=== PATIENT | female | born 1955 | race Caucasian/White ===

== ENCOUNTER 2016-04-16 08:46 | Day surgery (SDC) | payer OTHER, BC ==
[2016-04-16] MEDS ORDERED: IRON SUCROSE INJECTION 200 MG in SODIUM CHLORIDE 100 ML IVPB ONE (09:15)
[2016-04-16 09:22] VITALS: BMI 35.7
== END 2016-04-16 12:12 | disposition home or self-care (01) ==
LOC: FINFUSION 08:46 → FM/S 08:47 → FINFUSION 12:12
PROVIDERS: ATTEND Internal Medicine Hematology & Oncology
PROC: 3E033GC Introduction of Other Therapeutic Substance into Peripheral Vein, Percutaneous Approach (ICD-10-PCS; principal; 2016-04-16)
DX: D50.9 Iron deficiency anemia, unspecified (principal)
CPT/HCPCS: 96365; J1756

== ENCOUNTER 2016-04-23 08:44 | Day surgery (SDC) | payer OTHER, BC ==
[2016-04-23 09:24] VITALS: BP 151/60; PULSE 66; TEMP 98.8; BMI 34.2
[2016-04-23] MEDS ORDERED: IRON SUCROSE INJECTION 200 MG in SODIUM CHLORIDE 100 ML IVPB ONE (09:30)
== END 2016-04-23 10:40 | disposition home or self-care (01) ==
LOC: FINFUSION 08:44 → FM/S 08:45 → FINFUSION 10:40
PROVIDERS: ATTEND Internal Medicine Hematology & Oncology
PROC: 3E033GC Introduction of Other Therapeutic Substance into Peripheral Vein, Percutaneous Approach (ICD-10-PCS; principal; 2016-04-23)
DX: D50.9 Iron deficiency anemia, unspecified (principal)
CPT/HCPCS: 96365; J1756

== ENCOUNTER 2016-06-11 08:41 | Day surgery (SDC) | payer OTHER, BC ==
[2016-06-11] MEDS ORDERED: IRON SUCROSE INJECTION 200 MG in SODIUM CHLORIDE 100 ML IVPB ONE (09:30)
[2016-06-11 11:59] VITALS: BP 132/78; PULSE 78; TEMP 98.6; BMI 38.2
== END 2016-06-11 11:30 | disposition home or self-care (01) ==
LOC: FINFUSION 08:41 → FM/S 08:42 → FINFUSION 11:30
PROVIDERS: ATTEND Internal Medicine Hematology & Oncology
PROC: 3E033GC Introduction of Other Therapeutic Substance into Peripheral Vein, Percutaneous Approach (ICD-10-PCS; principal; 2016-06-11)
DX: D50.9 Iron deficiency anemia, unspecified (principal)
CPT/HCPCS: 96365; J1756

== ENCOUNTER 2016-06-18 08:57 | Day surgery (SDC) | payer OTHER, BC ==
[2016-06-18] MEDS ORDERED: IRON SUCROSE INJECTION 200 MG in SODIUM CHLORIDE 100 ML IVPB ONE (09:45)
[2016-06-18 11:18] VITALS: BP 120/72; PULSE 62; TEMP 98.5
== END 2016-06-18 11:18 | disposition home or self-care (01) ==
LOC: FINFUSION 08:57 → FM/S 08:59 → FINFUSION 11:18
PROVIDERS: ATTEND Internal Medicine Hematology & Oncology
PROC: 3E033GC Introduction of Other Therapeutic Substance into Peripheral Vein, Percutaneous Approach (ICD-10-PCS; principal; 2016-06-18)
DX: D50.9 Iron deficiency anemia, unspecified (principal)
CPT/HCPCS: 96365; J1756

== ENCOUNTER 2016-07-02 09:17 | Day surgery (SDC) | payer OTHER, BC ==
[2016-07-02 10:11] VITALS: BP 150/80; PULSE 70; TEMP 98.7; BMI 35.7
[2016-07-02] MEDS ORDERED: IRON SUCROSE INJECTION 200 MG in SODIUM CHLORIDE 100 ML IVPB ONE (10:30)
== END 2016-07-02 11:30 | disposition home or self-care (01) ==
LOC: FINFUSION 09:17 → FM/S 09:29 → FINFUSION 11:30
PROVIDERS: ATTEND Internal Medicine Hematology & Oncology
PROC: 3E033GC Introduction of Other Therapeutic Substance into Peripheral Vein, Percutaneous Approach (ICD-10-PCS; principal; 2016-07-02)
DX: D50.9 Iron deficiency anemia, unspecified (principal)
CPT/HCPCS: 96365; J1756

== ENCOUNTER 2016-10-09 09:37 | Day surgery (SDC) | payer OTHER, BC ==
[2016-10-09 10:06] VITALS: BP 140/56; PULSE 71; TEMP 98.2; BMI 35.9
[2016-10-09] MEDS ORDERED: IRON SUCROSE INJECTION 200 MG in SODIUM CHLORIDE 100 ML IVPB ONE (10:30)
== END 2016-10-09 11:00 | disposition home or self-care (01) ==
LOC: FINFUSION 09:37 → FM/S 09:39 → FINFUSION 11:00
PROVIDERS: ATTEND Internal Medicine Hematology & Oncology
PROC: 3E033GC Introduction of Other Therapeutic Substance into Peripheral Vein, Percutaneous Approach (ICD-10-PCS; principal; 2016-10-09)
DX: D50.9 Iron deficiency anemia, unspecified (principal)
CPT/HCPCS: 96365; J1756

== ENCOUNTER 2016-10-22 09:04 | Day surgery (SDC) | payer OTHER, BC ==
[2016-10-22 09:51] VITALS: BP 125/52; PULSE 61; TEMP 97.5; BMI 35.7
[2016-10-22] MEDS ORDERED: IRON SUCROSE INJECTION 200 MG in SODIUM CHLORIDE 100 ML IVPB ONE (10:00)
== END 2016-10-22 11:20 | disposition home or self-care (01) ==
LOC: FINFUSION 09:04 → FM/S 09:05 → FINFUSION 11:20
PROVIDERS: ATTEND Internal Medicine Hematology & Oncology
PROC: 3E033GC Introduction of Other Therapeutic Substance into Peripheral Vein, Percutaneous Approach (ICD-10-PCS; principal; 2016-10-22)
DX: D50.9 Iron deficiency anemia, unspecified (principal)
CPT/HCPCS: 96365; J1756

== ENCOUNTER 2016-10-29 09:33 | Day surgery (SDC) | payer OTHER, BC ==
[2016-10-29] MEDS ORDERED: IRON SUCROSE INJECTION 200 MG in SODIUM CHLORIDE 100 ML IVPB ONE (10:30)
[2016-10-29 10:42] VITALS: TEMP 98.4
[2016-10-29 11:35] VITALS: BP 130/80; PULSE 78
[2016-10-29 16:14] LABS: MCH 29.3 pg (25.7-33.7); MCHC 33.2 g/dl (32.0-36.0); MEAN CELL VOLUME 88.3 fl (80-96); MEAN PLT VOLUME 10.3 fl (7.5-11.1); PLATELET COUNT 129 K/MM3 (134-434); RDW 13.9 % (11.6-15.6); WHITE BLOOD COUNT 7.8 K/mm3 (4.0-10.8)
[2016-10-30 08:07] LABS: SERUM IRON 53 ug/dL (27-139); TOTAL IRON BINDING CAPACITY 271 ug/dL (250-450); UIBC 218 ug/dL (118-369)
== END 2016-10-29 11:19 | disposition home or self-care (01) ==
LOC: FINFUSION 09:33 → FM/S 09:44 → FINFUSION 11:19
PROVIDERS: ATTEND Internal Medicine Hematology & Oncology
PROC: 3E033GC Introduction of Other Therapeutic Substance into Peripheral Vein, Percutaneous Approach (ICD-10-PCS; principal; 2016-10-29)
DX: D50.9 Iron deficiency anemia, unspecified (principal)
CPT/HCPCS: 36415; 83540; 83550; 85027; 96365; J1756

== ENCOUNTER 2016-11-03 09:40 | Emergency (ER) | payer OTHER, BC ==
[2016-11-03 09:53] VITALS: PULSE 89; BMI 35.0
[2016-11-03 10:18] VITALS: BP 127/80
[2016-11-03] MEDS ORDERED: ACETAMINOPHEN 325 MG TABLET (FP) PO ONE (10:23)
[2016-11-03] MEDS ORDERED: ACETAMINOPHEN 325 MG TABLET (FP) ONE (10:25)
--- NOTE | 2016-11-03 10:39 | PDOC ---
History of Present Illness <Syeda Abernathy - Last Filed: 11/03/16 14:32> - History of Present Illness Initial Comments: 11/03/16 10:33 Patient is a 61 year old female with a history of HTN, DM, CAD s/p stenting, chronic anemia, who presents with complaints of left foot redness, swelling, and pain. The patient reports gradual onset of swelling and pain beginning over the last week in the left foot. She states over the past 24 hours, she has been experiencing worsening severe pain that she describes as throbbing in nature prompting her visit to the ED today. She also reports onset of chills over the past 24 hours. She denies any recent travel, chest pain, SOB, cough, abdominal pain, or changes with bowel movements or urination. <Damon Vargas - Last Filed: 11/03/16 15:25> - General Chief Complaint: Redness To Affected Area Stated Complaint: LEFT FOOT PAIN, REDNESS Time Seen by Provider: 11/03/16 09:49 Past History <Syeda Abernathy - Last Filed: 11/03/16 14:32> - Past Medical History Anemia: Yes Asthma: No Cancer: Yes (bladder ca) Cardiac Disorders: Yes (STENTS 2000) CVA: No COPD: No CHF: No Dementia: No Diabetes: Yes (improved with sx) GI Disorders: No Disorders: No HTN: Yes Hypercholesterolemia: Yes Liver Disease: No Seizures: No Thyroid Disease: No - Surgical History Abdominal Surgery: Yes (gastric bypass) Appendectomy: No Cardiac Surgery: Yes (stents) Cholecystectomy: No Lung Surgery: No Neurologic Surgery: No Orthopedic Surgery: Yes (RTKR 2010, L leg ORIF) - Psycho/Social/Smoking Cessation Hx Anxiety: No Suicidal Ideation: No Smoking Status: Yes Smoking History: Former smoker Have you smoked in the past 12 months: No Number of Cigarettes Smoked Daily: 30 If you are a former smoker, when did you quit?: 2007 Information on smoking cessation initiated: No Hx Alcohol Use: (occasional) Drug/Substance Use Hx: No Substance Use Type: Alcohol Hx Substance Use Treatment: No <Damon Vargas - Last Filed: 11/03/16 15:25> - Past Medical History Allergies/Adverse Reactions: Allergies Allergy/AdvReac Type Severity Reaction Status Date / Time Sulfa (Sulfonamide Allergy Verified 11/03/16 09:46 Antibiotics) Home Medications: Ambulatory Orders Hydrochlorothiazide 12.5 mg PO AM tablet 01/17/16 Olmesartan Medoxomil [Benicar] 20 mg PO AM tablet 01/17/16 Aspirin [ASA -] 81 mg PO DAILY 02/13/16 Cholecalciferol (Vitamin D3) [D3-2000] 2,000 unit PO DAILY 03/26/16 Clindamycin [Cleocin -] 300 mg PO TID #21 capsule 11/03/16 Ibuprofen [Motrin -] 600 mg PO TID #21 tablet 11/03/16 Review of Systems - Review of Systems Constitutional: Yes: Chills, Fever. No: Night Sweats Respiratory: No: Cough, Shortness of Breath, Hemoptysis Cardiac (ROS): No: Chest Pain, Palpitations, Chest Tightness ABD/GI: No: Constipated, Diarrhea, Nausea, Vomiting, Abdominal cramping : No: Burning, Dysuria Musculoskeletal: Yes: Joint Swelling Integumentary: Yes: Erythema. No: Rash Neurological: No: Headache, Numbness, Tingling, Weakness <Damon Vargas - Last Filed: 11/03/16 15:25> *Physical Exam - Vital Signs Last Vital Signs Temp Pulse Resp BP Pulse Ox 98.1 F 89 18 127/80 99 11/03/16 13:07 11/03/16 09:40 11/03/16 09:40 11/03/16 10:17 11/03/16 09:40 <Syeda Abernathy - Last Filed: 11/03/16 14:32> - Vital Signs Last Vital Signs Temp Pulse Resp BP Pulse Ox 99.8 F H 89 18 127/80 99 11/03/16 09:40 11/03/16 09:40 11/03/16 09:40 11/03/16 10:17 11/03/16 09:40 - Physical Exam Comments: 11/03/16 10:43 General Appearance: Nourished. No Apparent Distress HEENT: No Pharyngeal Erythema, Tonsillar Exudate, Tonsillar Erythema Respiratory/Chest: Lungs Clear, Normal Breath Sounds. No Crackles, Rales, Rhonchi, Wheezing Cardiovascular: Regular Rhythm, Regular Rate. No Murmur, Gallop/S3, Gallop/S4 Gastrointestinal/Abdominal: Normal Bowel Sounds, Soft. No Guarding, Rebound, Tenderness Extremity: Lower extremity foot swelling L>R with erythema and warmth tender to palpation worse over the left foot. Neurologic: Fully Oriented, Alert, Normal Mood/Affect, Normal Response <Damon Vargas - Last Filed: 11/03/16 15:25> ED Treatment Course - LABORATORY CBC & Chemistry Diagram: 11/03/16 10:30 11/03/16 10:35 - ADDITIONAL ORDERS Additional order review: Laboratory Results 11/03/16 10:35 Sodium 137 Potassium 4.6 Chloride 105 Carbon Dioxide 24 Anion Gap 8 BUN 27 H D Creatinine 1.2 Creat Clearance w eGFR 45.37 Random Glucose 98 Uric Acid 7.1 Calcium 8.8 Total Bilirubin 0.3 AST 22 ALT 12 D Alkaline Phosphatase 114 H Total Protein 6.5 Albumin 3.8 11/03/16 10:30 RBC 3.75 MCV 88.8 MCHC 32.6 RDW 13.9 MPV 8.4 D Neutrophils % 39.7 L D Lymphocytes % 51.3 H Monocytes % 5.6 Eosinophils % 1.3 Basophils % 2.1 H D - RADIOLOGY Radiology Studies Ordered: Category Date Time Status DUPLEX VASCUL US-1 LEG [US] Stat Ultrasound 11/03/16 10:21 Completed - Medications Given in the ED: ED Medications Discontinued Medications Generic Name Dose Route Start Last Admin Trade Name Demetria PRN Reason Stop Dose Admin Acetaminophen 650 mg 11/03/16 10:23 11/03/16 10:27 Tylenol - PO 11/03/16 10:24 650 mg ONCE ONE Administration Ibuprofen 600 mg 11/03/16 12:55 11/03/16 13:00 Motrin - PO 11/03/16 12:56 600 mg ONCE ONE Administration <Syeda Abernathy - Last Filed: 11/03/16 14:32> - LABORATORY CBC & Chemistry Diagram: 11/03/16 10:30 11/03/16 10:35 <Damon Vargas - Last Filed: 11/03/16 15:25> Medical Decision Making - Medical Decision Making 11/03/16 10:45 Patient is a 61 year female who presents with left foot and calf swelling, redness, and pain. Differential includes but is not limited to: DVT, cellulitis , gout, fracture. Given the patient's physical exam and history it is reasonable to evaluate for dvt and infection. Currently given swelling and pain worse around the first metatarsal, gout is higher on the differential. The patient does report a family history of gout. However we will obtain a cbc, cmp to evaluate for infection as well as a US and plain film to evaluate for DVT or fracture. 11/03/16 12:41 Labs are unremarkable and plain film shows no acute fracture read by our radiologist. US is negative for proximal DVT. 11/03/16 14:57 We discussed the results with the patient and attempted to contact her PCP Dr. Harvey. We are currently waiting for a call back from Dr. Harvey. We believe that her symptoms are due to either a gout attack vs. cellulites. It is difficult to discern between the two at this time due to that fact that this would be her first gout attack. We will send the patient home with a course of clindamycin to treat for cellulitis and advised the patient to take motrin for pain if this is a gout flare. We discussed with the patient the importance of follow up with Dr. Harvey and the patient agreed to call to schedule follow up with his clinic. <Damon Vargas - Last Filed: 11/03/16 15:25> *DC/Admit/Observation/Transfer - Discharge Dispostion Admit: No <Syeda Abernathy - Last Filed: 11/03/16 14:32> - Attestations Physician Attestion: 11/03/16 15:23 I, Dr. Damon Vargas, attest that this document has been prepared under my direction and personally reviewed by me in its entirety. I further attest, that it accurately reflects all work, treatment, procedures and medical decision -making performed by me. <Damon Vargas - Last Filed: 11/03/16 15:25> Diagnosis at time of Disposition: Cellulitis Qualifiers: Site of cellulitis: extremity Site of cellulitis of extremity: lower extremity Laterality: left Qualified Code(s): L03.116 - Cellulitis of left lower limb Gout attack Qualifiers: Gout site: foot Gout etiology: unspecified cause Laterality: left Qualified Code(s): M10.9 - Gout, unspecified - Discharge Dispostion Disposition: HOME Condition at time of disposition: Stable - Prescriptions Prescriptions: Clindamycin [Cleocin -] 300 mg PO TID #21 capsule Ibuprofen [Motrin -] 600 mg PO TID #21 tablet - Referrals Referrals: Aravind Harvey MD [Primary Care Provider] - - Patient Instructions Printed Discharge Instructions: Cellulitis, Gout Additional Instructions: take clindamycin 300 mg three times daily x one week. follow up with DR Brooks. call to schedule. you can take ibuprofen 600 mg every 8 hours as needed for pain. return for any problems or concerns.
[2016-11-03 10:45] LABS: BASOPHIL 2.1 % (0-2.0); EOSINOPHIL 1.3 % (0-4.5); MCHC 32.6 g/dl (32.0-36.0); MEAN CELL VOLUME 88.8 fl (80-96); MEAN PLT VOLUME 8.4 fl (7.5-11.1); NEUTROPHILS 39.7 % (42.8-82.8); PLATELET COUNT 135 K/MM3 (134-434); RDW 13.9 % (11.6-15.6); WHITE BLOOD COUNT 8.8 K/mm3 (4.0-10.8)
[2016-11-03 11:24] LABS: ALBUMIN 3.8 g/dl (3.5-5.0); ALK PHOS 114 U/L (32-92); ANION GAP 8 (8-16); BILIRUBIN,TOTAL 0.3 mg/dl (0.2-1.0); CALCIUM 8.8 mg/dl (8.4-10.2); CO2 24 mmol/L (22-28); CREATININE 1.2 mg/dl (0.6-1.3); GLUCOSE,RANDOM 98 mg/dl (74-106); SGOT/AST 22 U/L (10-42); SGPT/ALT 12 U/L (10-40); TOT PROT 6.5 g/dl (6.4-8.3); URIC ACID 7.1 mg/dl (2.6-7.2)
[2016-11-03] MEDS ORDERED: IBUPROFEN 600 MG TABLET (FP) PO ONE ×2 (12:55→12:57)
[2016-11-03 13:07] VITALS: TEMP 98.1
[2016-11-03 14:52] LABS: ERYTHROCYTE SEDIMENTATION RATE 60 mm/hr (0-30)
== END 2016-11-03 14:45 | disposition home or self-care (01) ==
LOC: FER 09:40
DX: L03.116 Cellulitis of left lower limb (principal); I10 Essential (primary) hypertension; E11.9 Type 2 diabetes mellitus without complications; I25.10 Atherosclerotic heart disease of native coronary artery without angina pectoris; Z95.5 Presence of coronary angioplasty implant and graft; D64.9 Anemia, unspecified; Z85.51 Personal history of malignant neoplasm of bladder; Z98.84 Bariatric surgery status; E78.00 Pure hypercholesterolemia, unspecified
CPT/HCPCS: 36415; 73610-TC-LT; 73630-TC-LT; 80053; 84550; 85025; 85651; 93971-TC; 99283-25

== ENCOUNTER 2016-11-10 01:27 | Inpatient (IN) | payer OTHER, BC ==
--- NOTE | 2016-11-10 01:39 | PDOC ---
History of Present Illness - General Chief Complaint: Pain, Acute Stated Complaint: I HAVE MRSA IN MY LEFT FOOT Time Seen by Provider: 11/10/16 01:38 - History of Present Illness Initial Comments: 11/10/16 01:47 This 61-year-old woman with a history of hypertension, CAD (S/P stent placement) , DM( reported remission after bariatric surgery) iron deficiency anemia presents with worsening erythema/edema/pain in the left foot and wound culture positive for MRSA and enterococcus faecalis Patient was seen in the ER here on 11/03 with painful, red, swollen left foot. Differential diagnosis was cellulitis versus acute gout. The patient had no or skin breakage Full workup including left lower extremity Doppler duplex ultrasound/plain film of the foot revealed no clear etiology of inflammation . She was discharged on course of clindamycin for empirical treatment of cellulitis. pain/swelling/redness continued as well as fevers (100 degree range ) She was seen by her PMD, Dr. Harvey on Wednesday, November 06. At that time, blister on the medial aspect of the first MTP joint was lanced, small foreign body( splinter) removed and drainage sent for culture and sensitivity. Meanwhile, clindamycin was stopped and amoxicillin 875 milligrams 3 times a day was begun. The patient went away for the weekend and noted increasing pain/swelling/ redness in foot.patient reports fever to 101 with chills this afternoon. Tonight, patient was called by Dr. Harvey when microbiology results were positive for MRSA. Wound culture shows MRSA and enterococcus faecalis. ALLERGIES sulfa( fever) Medications as noted below Past History - Past Medical History Allergies/Adverse Reactions: Allergies Allergy/AdvReac Type Severity Reaction Status Date / Time Sulfa (Sulfonamide Allergy Verified 11/10/16 01:29 Antibiotics) Home Medications: Ambulatory Orders Hydrochlorothiazide 12.5 mg PO AM tablet 01/17/16 Olmesartan Medoxomil [Benicar] 20 mg PO AM tablet 01/17/16 Aspirin [ASA -] 81 mg PO DAILY 02/13/16 Cholecalciferol (Vitamin D3) [D3-2000] 2,000 unit PO DAILY 03/26/16 Ibuprofen [Motrin -] 600 mg PO TID #21 tablet 11/03/16 Amoxicillin - [Amoxicillin 875mg Tablet -] 875 mg PO BID 11/10/16 Anemia: Yes Asthma: No Cancer: Yes (bladder ca) Cardiac Disorders: Yes (STENTS 1999) CVA: No COPD: No CHF: No Dementia: No Diabetes: Yes (improved with sx) GI Disorders: No Disorders: No HTN: Yes Hypercholesterolemia: Yes Liver Disease: No Seizures: No Thyroid Disease: No - Surgical History Abdominal Surgery: Yes (gastric bypass) Appendectomy: No Cardiac Surgery: Yes (stents) Cholecystectomy: No Lung Surgery: No Neurologic Surgery: No Orthopedic Surgery: Yes (RTKR 2010, L leg ORIF) - Psycho/Social/Smoking Cessation Hx Anxiety: No Suicidal Ideation: No Smoking Status: Yes Smoking History: Former smoker Have you smoked in the past 12 months: No Number of Cigarettes Smoked Daily: 30 If you are a former smoker, when did you quit?: 2007 Hx Alcohol Use: (occasional) Drug/Substance Use Hx: No Substance Use Type: Alcohol Hx Substance Use Treatment: No Review of Systems - Review of Systems Able to Perform ROS?: Yes Comments:: 12 point review of systems is negative except for what is noted in the history of present illness *Physical Exam - Physical Exam Comments: GENERAL:adult female,alert and oriented 3 in no acute distress HEAD: Normal with no signs of trauma. EYES: PERRLA, EOMI, sclera anicteric, conjunctiva clear. ENT: Ears normal, nares patent, oropharynx clear without exudates. Dry mucous membranes. NECK: Normal range of motion, supple without lymphadenopathy, JVD, or masses. LUNGS: Breath sounds equal, clear to auscultation bilaterally. No wheezes, and no crackles. HEART:Regular rate and rhythm, normal S1 and S2 ,3/6 systolic murmur at right and left second ICS ABDOMEN:.normal bowel sounds No guarding,tenderness or rebound.No masses No distention. EXTREMITIES: left lower extremitymarked edema, erythema and tenderness of the dorsal and plantar aspects of the forefoot 2cm X 3cm fluctuant, vesiculated, tender area 1st and 2nd interspace , dorsal aspect 1cm X 2cm closed, non draining vesicle medial aspect 1st MTP joint faint erythema/ mild edema extends proximally to mid lower leg Remainder of extremity exam normal NEUROLOGICAL: Cranial nerves II through XII grossly intact. Normal speech. No focal neurological deficits MUSCULOSKELETAL: Back non-tender to palpation, no CVA tenderness ED Treatment Course - LABORATORY CBC & Chemistry Diagram: 11/10/16 02:05 11/10/16 02:05 Medical Decision Making - Medical Decision Making 11/10/16 03:26 Laboratory evaluation notable for white blood cell count 11,300 Creatinine clearance is also significantly diminished as compared to results of last week (28 tonight vs. 45 last week) Random glucose is 195 Lactic acid is normal at 0.9 CRP significantly elevated at 16.9 Portable chest x-ray reveals no evidence of infiltrate/effusion/CHF Left foot x-ray shows no clear sign of acute osteomyelitis or gas in tissues ( unchanged from right foot x-ray performed 11/03/16) 12-lead electrocardiogram is performed and interpreted by me: Normal sinus rhythm at 74 beats per minute; axis, wave forms and intervals are all normal. No evidence of acute ST or T-wave abnormalities Vancomycin 1 g IV administered. case discussed with Dr. Soto. [facility]. ESR added to laboratory evaluation Zosyn 2.2 g IV ordered. *DC/Admit/Observation/Transfer Diagnosis at time of Disposition: Cellulitis of left foot - Discharge Dispostion Condition at time of disposition: Guarded Admit: Yes - Referrals Referrals: Aravind Harvey MD [Primary Care Provider] -
[2016-11-10] MEDS ORDERED: VANCOMYCIN 1,000 MG in DEXTROSE 5%-WATER - 250 ML IVPB ONE (02:01)
[2016-11-10] MEDS ORDERED: VANCOMYCIN 1,000 MG VIAL (RESTRICTED TO ID ONLY) ONE (02:03)
[2016-11-10 02:35] LABS: BASOPHIL 0.8 % (0-2.0); MCH 28.8 pg (25.7-33.7); MCHC 32.3 g/dl (32.0-36.0); MEAN CELL VOLUME 89.3 fl (80-96); MEAN PLT VOLUME 9.2 fl (7.5-11.1); NEUTROPHILS 45.9 % (42.8-82.8); PLATELET COUNT 146 K/MM3 (134-434); RDW 14.7 % (11.6-15.6); WHITE BLOOD COUNT 11.3 K/mm3 (4.0-10.0)
[2016-11-10 02:38] LABS: URINE APPEARANCE SLCLOUDY; URINE BILIRUBIN NEGATIVE (NEGATIVE); URINE BLOOD 1+ (NEGATIVE); URINE COLOR YELLOW; URINE GLUCOSE (UA) NEGATIVE (NEGATIVE); URINE KETONE NEGATIVE (NEGATIVE); URINE LEUK ESTERASE TRACE (NEGATIVE); URINE NITRITE NEGATIVE (NEGATIVE); URINE UROBILINOGEN NEGATIVE mg/dL (0.2-1.0)
[2016-11-10 02:41] LABS: URINE PROTEIN 1+ (NEGATIVE)
[2016-11-10 02:50] LABS: INR 1.25 (0.82-1.09); PROTHROMBIN TIME (PATIENT) 13.8 SEC (9.98-11.88)
[2016-11-10 02:55] LABS: URINE HYALINE CAST 3 /lpf; URINE MUCUS RARE; URINE RBC 1 /hpf (0-3); URINE WBC 8 /hpf (3-5)
[2016-11-10 02:59] LABS: ALBUMIN 3.2 g/dl (3.4-5.0); ANION GAP 8 (8-16); CALCIUM 8.2 mg/dL (8.5-10.1); CO2 26 mmol/L (21-32); CREATININE 1.8 mg/dL (0.55-1.02); GLUCOSE,RANDOM 195 mg/dL (74-106); SGOT/AST 22 U/L (15-37); SGPT/ALT 22 U/L (12-78)
[2016-11-10 03:03] LABS: ALK PHOS 133 U/L (45-117); BILIRUBIN,TOTAL 0.4 mg/dL (0.2-1.0); CPK 49 IU/L (26-192); TOT PROT 6.8 g/dl (6.4-8.2); TROPONIN I < 0.02 ng/ml (0.00-0.05)
[2016-11-10] MEDS ORDERED: PIPERACILLIN/TAZOB 2.25 GM 2.25 GM in DEXTROSE 5%-WATER - 50 ML IVPB ONE (03:21)
[2016-11-10] MEDS ORDERED: PIPERACILLIN/TAZOBACTAM 4.5 GM VIAL IVPB ONE (03:25)
[2016-11-10 05:03] VITALS: BMI 35.3
[2016-11-10] MEDS ORDERED: HYDROCHLOROTHIAZIDE 50 MG TABLET PO SCH (07:00)
--- NOTE | 2016-11-10 07:00 | HP ---
CHIEF COMPLAINT: left foot pain PCP: Candice HISTORY OF PRESENT ILLNESS: Patient is a 61 y/o female with a past medical history of hypertension, niddm (diet controlled), bladder ca (remission) and rheumotoid arthritis. Patient reports on Wednesday, November 02, 2016 she was evaluated in this emergency department for ongoing pain to the left foot. She was started on clindamycin and prednisone for questionable gout. patient reports compliance with prescribed antibiotics. However, the pain worsened to the extremity and she was evaluated by her PCP, Dr Harvey on 11/06/16. In the office, a splinter was removed from the plantar of the foot and drainage was cultured which resulted as positive for MRSA and enterococous. She was started on augmentin, patient reports compliance with prescribed antibiotics. She reports ongoing fever, tmax 101.0 for the past 3 day unresolved with ibuprofen "around the clock" as per patient. As a result, she sought evaluation in the emergency department. ER course was notable for: (1) wbc 11.3 (2) chest xray, no acute pathology (3)xray of left foot, no fracture no foreign body Recent Travel: none PAST MEDICAL HISTORY: htn, niddm, RA PAST SURGICAL HISTORY: gastric bypass left tibia orif Social History: retired, resides at home Smoking:quit 2003 Alcohol: social Drugs: none Family History: non contributory this admission Allergies Sulfa (Sulfonamide Antibiotics) Allergy (Verified 11/10/16 01:29) HOME MEDICATIONS: Home Medications Medication Instructions Recorded Hydrochlorothiazide 12.5 mg PO AM tablet 01/17/16 Olmesartan Medoxomil [Benicar] 20 mg PO AM tablet 01/17/16 Aspirin [ASA -] 81 mg PO DAILY 02/13/16 Cholecalciferol (Vitamin D3) 2,000 unit PO DAILY 03/26/16 [D3-2000] Ibuprofen [Motrin -] 600 mg PO TID #21 tablet 11/03/16 Amoxicillin - [Amoxicillin 875mg 875 mg PO BID 11/10/16 Tablet -] REVIEW OF SYSTEMS CONSTITUTIONAL: Absent: fever, chills, diaphoresis, generalized weakness, malaise, loss of appetite, weight change HEENT: Absent: rhinorrhea, nasal congestion, throat pain, throat swelling, difficulty swallowing, mouth swelling, ear pain, eye pain, visual changes CARDIOVASCULAR: Absent: chest pain, syncope, palpitations, irregular heart rate, lightheadedness , peripheral edema RESPIRATORY: Absent: cough, shortness of breath, dyspnea with exertion, orthopnea, wheezing, stridor, hemoptysis GASTROINTESTINAL: Absent: abdominal pain, abdominal distension, nausea, vomiting, diarrhea, constipation, melena, hematochezia GENITOURINARY: Absent: dysuria, frequency, urgency, hesitancy, hematuria, flank pain, genital pain MUSCULOSKELETAL: Present: lower foot pain Absent: myalgia, arthralgia, joint swelling, back pain, neck pain SKIN: Absent: rash, itching, pallor HEMATOLOGIC/IMMUNOLOGIC: Absent: easy bleeding, easy bruising, lymphadenopathy, frequent infections ENDOCRINE: Absent: unexplained weight gain, unexplained weight loss, heat intolerance, cold intolerance NEUROLOGIC: Absent: headache, focal weakness or paresthesias, dizziness, unsteady gait, seizure, mental status changes, bladder or bowel incontinence PSYCHIATRIC: Absent: anxiety, depression, suicidal or homicidal ideation, hallucinations. PHYSICAL EXAMINATION GENERAL: Awake, alert, and fully oriented, in no acute distress. HEAD: Normal with no signs of trauma. EYES: Pupils equal, round and reactive to light, extraocular movements intact, sclera anicteric, conjunctiva clear. No lid lag. EARS, NOSE, THROAT: Ears normal, nares patent, oropharynx clear without exudates. Moist mucous membranes. NECK: Normal range of motion, supple without lymphadenopathy, JVD, or masses. LUNGS: Breath sounds equal, clear to auscultation bilaterally. No wheezes, and no crackles. No accessory muscle use. HEART: Regular rate and rhythm, normal S1 and S2 without murmur, rub or gallop. ABDOMEN: Soft, nontender, not distended, normoactive bowel sounds, no guarding, no rebound, no masses. No hepatomegaly or splenomegaly. MUSCULOSKELETAL: Normal range of motion at all joints. No bony deformities or tenderness. No CVA tenderness. UPPER EXTREMITIES: 2+ pulses, warm, well-perfused. No cyanosis. No clubbing. No peripheral edema. LOWER EXTREMITIES: 2+ pulses, warm, well-perfused. No calf tenderness. No peripheral edema. LEFT LOWER EXTREMITY: 2 cm fluctance between the webspace of the 1st and 2nd digit, induration of the first digit with 3cm of erythema extending to the dorsal aspect of the foot, + 1 edema, less than 3 second capillary refill, + 3 pedal pulse NEUROLOGICAL: Cranial nerves II-XII intact. Normal speech. Normal gait. PSYCHIATRIC: Cooperative. Good eye contact. Appropriate mood and affect. SKIN: Warm, dry, normal turgor, no rashes or lesions noted, normal capillary refill. ASSESSMENT/PLAN: 1) ID: cellulitis of left foot - vanc and zosyn (renal dose) was given in the ED, will continue vancomycin/ zosyn, appreciate ID input for antibiotic approval - xray of left foot/ankle reviewed, will order ct scan of left lower extremity ordered unable to obtain a MRI, pt has hardware to left tibia - monitior wbc and fever curve - case discussed with computer numerical control programmer, Dr Moscoso, pt may require a debridement, will evaluate patient today 2) endo: niddm - pending hgb a1c - fingersticks achs with regular insulin coverage 3) card:HTN - continue toprol and norvasc, hold hctz due to michell - b/p at goal 4) neph: michell - creatine 1.8 baseline 0.9, likely prerenal secondary to ibuprofen - avoid nephrotic agents, repeat bmp this am f/e/n - npo -->until evaluated by computer numerical control programmer - replete sindhu prn ppx - hold AC, pending or - protonix - scd/mojgan - oob dispo: requires inpatient admission. Problem List - Problem (1) Cellulitis of left foot Code(s): L03.116 - CELLULITIS OF LEFT LOWER LIMB (2) Hypertension Code(s): I10 - ESSENTIAL (PRIMARY) HYPERTENSION (3) Hyperlipidemia Code(s): E78.5 - HYPERLIPIDEMIA, UNSPECIFIED (4) MICHELL (acute kidney injury) Code(s): N17.9 - ACUTE KIDNEY FAILURE, UNSPECIFIED (5) Diabetes mellitus Code(s): E11.9 - TYPE 2 DIABETES MELLITUS WITHOUT COMPLICATIONS Visit type - Emergency Visit Emergency Visit: Yes ED Registration Date: 11/10/16 Care time: The patient presented to the Emergency Department on the above date and was hospitalized for further evaluation of their emergent condition. - New Patient This patient is new to me today: Yes Date on this admission: 11/10/16 - Critical Care Critical Care patient: No
[2016-11-10] MEDS ORDERED: morphine CARPU-JECT 2 MG/1 ML DISP.SYRIN ONE (08:13)
[2016-11-10] MEDS: amLODIPine BESYLATE 10 MG TABLET (FP) PO SCH (08:20)
[2016-11-10] MEDS ORDERED: morphine CARPU-JECT 2 MG/1 ML DISP.SYRIN IVPUSH ONE ×2 (08:21→23:13)
[2016-11-10 08:25] LABS: INR 1.17 (0.82-1.09); PROTHROMBIN TIME (PATIENT) 13.1 SEC (10.2-13.0)
--- NOTE | 2016-11-10 09:32 | PN ---
Progress Note (short form) - Note Progress Note: ID Consult dictated L diabetic foot infection S/P I&D L foot wound S/P removal of foreign body Azotemia + Wound c/s MRSA Podiatry evaluation IV Vancomycin/ zosyn
[2016-11-10] MEDS: PANTOPRAZOLE 40 MG TABLET (FP) PO SCH (10:29)
[2016-11-10] MEDS: CHOLECALCIFEROL (VITAMIN D3) 1,000 UNIT TABLET (FP) PO SCH (10:29)
[2016-11-10] MEDS: ASPIRIN 81 MG CHEWABLE TABLETS PO SCH (10:29)
[2016-11-10] MEDS: METOPROLOL SUCCINATE 100 MG TAB.SR.24H (FP) PO SCH (10:29)
[2016-11-10] MEDS: CLOTRIMAZOLE/BETAMET DIPROP 15 GM TUBE TP SCH ×2 (10:30→21:19)
[2016-11-10] MEDS: PIPERACILLIN/TAZOB 2.25 GM 50 ML IVPB SCH ×3 (10:31→21:19)
--- NOTE | 2016-11-10 10:31 | CONS ---
DATE OF CONSULTATION: DATE OF DICTATION: 11/10/2016 HISTORY OF PRESENT ILLNESS: The patient is a 61-year-old diet-controlled diabetic female who is evaluated for cellulitis of the left foot. Patient reports developing onset of left pain, swelling, and erythema on or about November 03, 2016. She had presented to the emergency room where she was diagnosed with acute gouty arthritis versus cellulitis. Despite treatment with nonsteroidals and clindamycin, she had progressively worsening pain and swelling. She had presented to her primary care physician where a blister was lanced. In addition, a splinter was removed from the medial aspect of the left foot. Cultures were obtained. She received an infusion of an IV antibiotic and was discharged on Augmentin. Despite the antibiotic therapy and elevation, she continued to develop worsening pain to the point where she was unable to ambulate, worsening erythema, and warmth. She is now admitted for further evaluation and treatment. Patient complains of pain on the plantar aspect of the left foot over the metatarsal heads. She developed a blister between the 1st and 2nd toes with clear fluid. No purulent drainage was reported. She also complained of subjective fever. Patient denies any traumatic injury. She has a history of peripheral neuropathy. However, states that she has good sensation in her feet and does not walk barefoot. She denies prior history of serious soft tissue infection requiring hospitalization or history of MRSA. Wound culture obtained here is positive for MRSA and Enterococcus. PAST MEDICAL HISTORY: Positive for diet-controlled diabetes mellitus. Patient underwent a gastric bypass several years ago and lost a significant amount of weight with improvement in her blood sugars. Past medical history also includes hypertension, coronary artery disease, coronary artery stent, bladder cancer, iron deficiency anemia. PAST SURGICAL HISTORY: Status post gastric bypass, left lateral tibial plateau fracture. ALLERGIES: SULFA. MEDICATIONS: Include hydrochlorothiazide, Benicar, aspirin, Motrin, Augmentin. SOCIAL HISTORY: Former smoker. Lives at home with her . SYSTEMS REVIEW:Neurologic: No loss of consciousness, seizure activity, focal weakness. Cardiac: Negative chest pain or palpitations. Respiratory: Negative for cough or sputum production. Gastrointestinal: Negative vomiting or diarrhea. Positive history of gastric bypass. Genitourinary: Negative for urinary tract infection. LABORATORY DATA: White count 11.3, hematocrit 33.4, platelet count 146. ESR 110. C-reactive protein 16.9. Urinalysis: 8 white cells. Urine culture is pending. BUN 42, creatinine 1.8. PHYSICAL EXAMINATION:General: She is awake and alert. She is in no acute distress. Not acutely toxic appearing. Vital Signs: Temperature 98.9, blood pressure 147/79, pulse 84, regular, respirations 16 per minute. HEENT: Sclerae are anicteric. Cardiac: Heart sounds S1, S2. Lungs: Clear. Abdomen: Soft. No tenderness elicited. No mass, rebound, or rigidity. Extremities: Examination of lower extremities negative for edema. Examination of the left foot: There is a bullous lesion present in the webspace of the 1st and 2nd left toes. There is confluent erythema, warmth, and swelling extending from the area of the great toe to the dorsum of the foot to midfoot. There is also erythema present on the plantar aspect of the left foot area of the metatarsal heads. No lymphangitic streaking. IMPRESSION: 1. Left diabetic foot infection. 2. Cellulitis of the left foot. 3. Status post incision and drainage, left foot wound. 4. Status post removal of foreign body. 5. Positive wound culture, methicillin-resistant Staphylococcus aureus. 6. Azotemia. RECOMMENDATIONS: Advise Podiatry evaluation. May require further incision and drainage. Empiric antibiotic coverage with vancomycin and Zosyn adjusted for azotemia. Elevation. Analgesics. Will follow. Thank you for the kind referral. HANNAH CARVER M.D. [id number]
[2016-11-10 13:34] LABS: ALBUMIN 2.9 g/dl (3.5-5.0); ALK PHOS 91 U/L (32-92); ANION GAP 6 (8-16); BILIRUBIN,TOTAL 0.4 mg/dl (0.2-1.0); CALCIUM 8.2 mg/dl (8.4-10.2); CO2 27 mmol/L (22-28); CREATININE 1.5 mg/dl (0.6-1.3); GLUCOSE,RANDOM 166 mg/dl (74-106); SGOT/AST 16 U/L (10-42); SGPT/ALT 15 U/L (10-40); TOT PROT 5.6 g/dl (6.4-8.3)
[2016-11-10] MEDS ORDERED: SODIUM CHLORIDE 0.45% 1,000 ML IV SCH (13:45)
--- NOTE | 2016-11-10 13:55 | EKG ---
Test Reason : Blood Pressure : / mmHG Vent. Rate : 074 BPM Atrial Rate : 074 BPM P-R Int : 178 ms QRS Dur : 094 ms QT Int : 362 ms P-R-T Axes : 010 -03 040 degrees QTc Int : 401 ms NORMAL SINUS RHYTHM MODERATE VOLTAGE CRITERIA FOR LVH, MAY BE NORMAL VARIANT BORDERLINE ECG NO PREVIOUS ECGS AVAILABLE REPEAT EKG IF CLINICALLY INDICATED Confirmed by MICHAEL RAVI MD ([id number]) on 11/10/2016 1:54:43 PM Referred By: DEMETRICE FRAGOSO Confirmed By:MICHAEL RAVI MD
--- NOTE | 2016-11-10 14:36 | CONSULT ---
Consult - text type - Consultation Consultation Note: Podiatry Consultation: 61 year old NIDDM, diet controlled, presents with 1 week history of redness/ swelling/pain to L foot. Patient reports a history of possibly stepping on foreign body about 1 week ago. She has had trouble ambulating on the foot for the past week, with pain intensifying over the last few days. Patient initially diagnosed with gout and was placed on prednisone, which did not help redness/swelling/pain. Patient's PCP attempted to remove foreign body and prescribed her augmentin, which did not improve condition. She reports low grade fever over the past few days at home. She is currently afebrile, VSS. PMHx: NIDDM (diet controlled), HTN, HLP, gastric bypass Meds: noted in chart ALL: sulfa TESSA: L foot: DP pulse 1/4, PT non-palpable, strong dopplerable signals. In the first interspace of the left foot is fluctuance exhibited dorsally and plantarly. Upon debridement, there is purulent drainage expressed from the area. There is no evidence of foreign body within the site. There is fixed erythema to the first interspace and plantar 2nd digit. There is significant tenderness to palpation. There is no soft tissue crepitus. There is no ascending cellulitis. WBC: 11.3 ESR: 110 L foot XR: no evidence of foreign body or cortical destruction Imp: 61 year old NIDDM F with L foot abscess/cellulitis 1. IV abx per Infectious Disease 2. Bedside excisional debridement performed. My concern is deep space infection given fluctuance. I discussed this with patient and plan for incision and drainage in OR under MAC/Local. Risks, benefits, alternatives to surgery discussed at length with patient. She is in agreement for planned procedure. Patient has been NPO since this morning. 3. Will follow post-operatively. Swelling/pain/cellulitis should improve post- operatively. Elizabeth Moscoso DPM
[2016-11-10] MEDS ORDERED: MIDAZOLAM HCL 2 MG/2 ML SINGLE DOSE VIAL ONE (17:28)
[2016-11-10] MEDS ORDERED: PROPOFOL 20 ML ONE (17:49)
[2016-11-10] MEDS ORDERED: ONDANSETRON 4 MG/2 ML VIAL IVPUSH PRN (18:03)
--- NOTE | 2016-11-10 18:27 | OP ---
Operative Note - Note: Operative Date: 11/10/16 Pre-Operative Diagnosis: Abscess with diabetic infection, left foot Operation: Incision and drainage, left foot Findings: Abscess 1st interspace left foot Post-Operative Diagnosis: Same as Pre-op Surgeon: Andrea Moscoso Anesthesiologist/CALL CENTER OPERATOR: Edwin Nelson Anesthesia: Local, MAC Estimated Blood Loss (mls): 10 Instrument used (Debridements only): #15 blade scalpel and sterile scissors Operative Report Dictated: Yes
[2016-11-10] MEDS: ATORVASTATIN CA 10 MG TABLET (FP) PO SCH (21:19)
[2016-11-10] MEDS: oxyCODONE HCL 5 MG TABLET PO PRN (21:47)
[2016-11-11] MEDS ORDERED: morphine CARPU-JECT 2 MG/1 ML DISP.SYRIN IVPUSH ONE (01:58)
[2016-11-11] MEDS ORDERED: VANCOMYCIN 1 GRAM (PRE-DOCKED) 250 ML IVPB SCH (02:00)
[2016-11-11] MEDS: PIPERACILLIN/TAZOB 2.25 GM 50 ML IVPB SCH ×4 (03:00→21:25)
[2016-11-11] MEDS: ACETAMINOPHEN 500 MG TABLET (FP) PO PRN (06:37)
[2016-11-11] MEDS: oxyCODONE HCL 5 MG TABLET PO PRN (06:37)
--- NOTE | 2016-11-11 06:43 | OP ---
DATE OF OPERATION: 11/10/2016 PREOPERATIVE DIAGNOSIS: Left foot abscess with diabetic infection. POSTOPERATIVE DIAGNOSIS: Left foot abscess with diabetic infection. PROCEDURE: Left foot incision and drainage. SURGEON: Andrea Moscoso DPM VP BIOLOGY: None. HEMOSTASIS: Surgical dissection. ANESTHESIA: Local with IV sedation. ESTIMATED BLOOD LOSS: Minimal. PATHOLOGY: Soft tissue culture. COMPLICATIONS: None. The patient was brought to the operating room and placed on the operating table in the supine position. I elected to not use a tourniquet during the course of the procedure. Following the induction of IV sedation, local anesthesia was achieved utilizing 10 mL of 1% lidocaine plain. The left foot was then scrubbed, prepped, and draped in the usual aseptic fashion. Attention was directed to the left 1st interspace where a fluctuant mass with ascending cellulitis to the midfoot was visualized and appreciated. I began by performing a 3-cm curvilinear incision through the 1st interspace. Immediately upon incision, there was purulent material expressed from the wound. The incision was deepened using blunt dissection with a curved hemostat, again expressing all purulent material from the interspace. Approximately 10 mL of pus material was expressed from the wound. Next, excisional debridement was performed using sterile dissecting scissors. All liquefactive tissue was removed from the 1st interspace. Of note, there was no bone involvement. An appropriate soft tissue culture was taken for gram stain and sensitivity. The surgical site was then copiously irrigated with sterile saline mixed with bacitracin in a pulsed lavage fashion. The proximal and distal aspects of the surgical site were coapted loosely using 3-0 nylon. The central aspect of the wound was packed open using 1/4-inch plain packing. Following the conclusion of the procedure, the surgical site was covered with Xeroform and a sterile compressive dressing was applied to the left foot consisting of sterile gauze, Kasandra, Kerlix, and Pro wrap. The patient tolerated the procedure and anesthesia well without complication. She was transferred from the operating room to the recovery unit with vital signs stable and neurovasculature intact to the left foot. KYLEIGH [id number] cc: [facility]
--- NOTE | 2016-11-11 09:44 | PN ---
Progress Note, Physician History of Present Illness: S/P I&D L foot wound C/O moderate pain, relieved with analgesics Low grade fever noted Tolerating antibiotics - Current Medication List Current Medications: Active Medications Acetaminophen (Tylenol -) 1,000 mg PO Q8H PRN PRN Reason: FEVER OR PAIN Last Admin: 11/11/16 06:37 Dose: 1,000 mg Amlodipine Besylate (Norvasc -) 10 mg PO AM [facility] Last Admin: 11/10/16 08:20 Dose: 10 mg Aspirin (Asa -) 81 mg PO DAILY [facility] Last Admin: 11/10/16 10:29 Dose: 81 mg Atorvastatin Calcium (Lipitor -) 10 mg PO HS [facility] Last Admin: 11/10/16 21:19 Dose: 10 mg Cholecalciferol (Vitamin D3 -) 2,000 unit PO DAILY [facility] Last Admin: 11/10/16 10:29 Dose: 2,000 unit Clotrimazole (Lotrisone Cream (Small Tube)) 1 applic TP BID [facility] Last Admin: 11/10/16 21:19 Dose: 1 applic Vancomycin HCl (Vancomycin (Pre-Docked)) 250 mls @ 166.667 mls/hr IVPB Q24H [facility] Last Admin: 11/11/16 01:21 Dose: 166.667 mls/hr Piperacillin Sod/Tazobactam Sod (Zosyn 2.25gm Ivpb (Pre-Docked)) 50 mls @ 100 mls/hr IVPB Q6H-IV OLGA LIDIA PRN Reason: Protocol Last Admin: 11/11/16 03:00 Dose: 100 mls/hr Metoprolol Succinate (Toprol Xl -) 100 mg PO DAILY [facility] Last Admin: 11/10/16 10:29 Dose: 100 mg Oxycodone HCl (Roxicodone -) 5 mg PO Q4H PRN PRN Reason: PAIN LEVEL 1-5 Last Admin: 11/11/16 06:37 Dose: 5 mg Pantoprazole Sodium (Protonix -) 40 mg PO DAILY [facility] Last Admin: 11/10/16 10:29 Dose: 40 mg - Objective Vital Signs: Vital Signs Temperature 100.4 F H 11/11/16 04:00 Pulse Rate 72 11/11/16 04:00 Respiratory Rate 18 11/11/16 04:00 Blood Pressure 144/45 11/11/16 04:00 O2 Sat by Pulse Oximetry (%) 95 11/11/16 08:58 Constitutional: Yes: No Distress Eyes: Yes: Conjunctiva Clear Cardiovascular: Yes: Regular Rate and Rhythm, S1, S2 Respiratory: Yes: CTA Bilaterally, Tachypnea Gastrointestinal: Yes: Normal Bowel Sounds. No: Tenderness Extremities: Yes: Other (L foot wound with packing decreased erythema/ swelling) Labs: CBC, BMP 11/10/16 11:52 INR, PTT INR 1.17 (0.82-1.09) 11/10/16 07:41 Assessment/Plan L diabetic foot infection s/p I&D + wound c/s MRSA Azotemia Await culture results Continue vancomycin/zosyn
[2016-11-11] MEDS: amLODIPine BESYLATE 10 MG TABLET (FP) PO SCH (10:09)
[2016-11-11] MEDS: PANTOPRAZOLE 40 MG TABLET (FP) PO SCH (10:10)
[2016-11-11] MEDS: ASPIRIN 81 MG CHEWABLE TABLETS PO SCH (10:10)
[2016-11-11] MEDS: CLOTRIMAZOLE/BETAMET DIPROP 15 GM TUBE TP SCH ×2 (10:10→21:25)
[2016-11-11] MEDS: VANCOMYCIN 1 GRAM (PRE-DOCKED) 250 ML IVPB SCH ×2 (10:11→12:45)
[2016-11-11] MEDS: CHOLECALCIFEROL (VITAMIN D3) 1,000 UNIT TABLET (FP) PO SCH (10:12)
[2016-11-11] MEDS: morphine CARPU-JECT 2 MG/1 ML DISP.SYRIN IVPUSH PRN ×3 (10:14→22:29)
[2016-11-11] MEDS: METOPROLOL SUCCINATE 100 MG TAB.SR.24H (FP) PO SCH (10:16)
--- NOTE | 2016-11-11 12:15 | PN ---
Physical Exam: SUBJECTIVE: Patient seen and examined, reports ongoing pain to the left foot denies any paresthesia to the extremity. OBJECTIVE: Patient is a 61 y/o female with a past medical history of hypertension, niddm (diet controlled), bladder ca (remission) and rheumotoid arthritis. patient was admitted from the emergency department for cellulitis and abscess of the left foot after failing outpatient therapy. pt is s/p ID of left foot abscess 11/10/16 Vital Signs Period Temp Pulse Resp BP Sys/King Pulse Ox Last 24 Hr 98.4 F-100.4 F 58-97 16-18 126-144/45-85 95-100 GENERAL: Awake, alert, and fully oriented, in no acute distress. HEAD: Normal with no signs of trauma. EYES: Pupils equal, round and reactive to light, extraocular movements intact, sclera anicteric, conjunctiva clear. No lid lag. EARS, NOSE, THROAT: Ears normal, nares patent, oropharynx clear without exudates. Moist mucous membranes. NECK: Normal range of motion, supple without lymphadenopathy, JVD, or masses. LUNGS: Breath sounds equal, clear to auscultation bilaterally. No wheezes, and no crackles. No accessory muscle use. HEART: Regular rate and rhythm, normal S1 and S2 without murmur, rub or gallop. ABDOMEN: Soft, nontender, not distended, normoactive bowel sounds, no guarding, no rebound, no masses. No hepatomegaly or splenomegaly. MUSCULOSKELETAL: Normal range of motion at all joints. No bony deformities or tenderness. No CVA tenderness. UPPER EXTREMITIES: 2+ pulses, warm, well-perfused. No cyanosis. No clubbing. No peripheral edema. LOWER EXTREMITIES: 2+ pulses, warm, well-perfused. No calf tenderness. No peripheral edema. LEFT LOWER EXTREMITY: packing noted to the surgical site scant sangenous drainage noted, erythema nearly resolved, + 1 edema, less than 3 second capillary refill, + 3 pedal pulse NEUROLOGICAL: Cranial nerves II-XII intact. Normal speech. Normal gait. PSYCHIATRIC: Cooperative. Good eye contact. Appropriate mood and affect. SKIN: Warm, dry, normal turgor, no rashes or lesions noted, normal capillary refill. Laboratory Results - last 24 hr CBC WBC 11.3 K/mm3 (4.0-10.0) H 11/10/16 02:05 RBC 3.74 M/mm3 (3.60-5.2) 11/10/16 02:05 Hgb 10.8 GM/dL (10.7-15.3) 11/10/16 02:05 Hct 33.4 % (32.4-45.2) 11/10/16 02:05 MCV 89.3 fl (80-96) 11/10/16 02:05 MCH 28.8 pg (25.7-33.7) 11/10/16 02:05 MCHC 32.3 g/dl (32.0-36.0) 11/10/16 02:05 RDW 14.7 % (11.6-15.6) 11/10/16 02:05 Plt Count 146 K/MM3 (134-434) 11/10/16 02:05 MPV 9.2 fl (7.5-11.1) 11/10/16 02:05 Neutrophils % 45.9 % (42.8-82.8) 11/10/16 02:05 Lymphocytes % 48.1 % (8-40) H 11/10/16 02:05 Monocytes % 3.2 % (3.8-10.2) L 11/10/16 02:05 Eosinophils % 2.0 % (0-4.5) 11/10/16 02:05 Basophils % 0.8 % (0-2.0) 11/10/16 02:05 ESR 110 mm/hr (0-30) H 11/10/16 03:22 CMP Sodium 141 mmol/L (136-145) 11/10/16 11:52 Potassium 4.4 mmol/L (3.5-5.1) 11/10/16 11:52 Chloride 108 mmol/L (98-107) H 11/10/16 11:52 Carbon Dioxide 27 mmol/L (22-28) 11/10/16 11:52 Anion Gap 6 (8-16) L 11/10/16 11:52 BUN 33 mg/dl (7-18) H D 11/10/16 11:52 Creatinine 1.5 mg/dl (0.6-1.3) H D 11/10/16 11:52 Creat Clearance w eGFR 35.07 (>60) 11/10/16 11:52 POC Glucometer 109 UNITS (()) 11/11/16 06:28 Random Glucose 166 mg/dl (74-106) H D 11/10/16 11:52 Hemoglobin A1c % 6.6 % (4.8-6.0) H D 11/10/16 11:52 Lactic Acid 0.9 mmol/L (0.4-2.0) 11/10/16 01:55 Calcium 8.2 mg/dl (8.4-10.2) L 11/10/16 11:52 Total Bilirubin 0.4 mg/dl (0.2-1.0) D 11/10/16 11:52 AST 16 U/L (10-42) D 11/10/16 11:52 ALT 15 U/L (10-40) D 11/10/16 11:52 Alkaline Phosphatase 91 U/L (32-92) D 11/10/16 11:52 Creatine Kinase 49 IU/L (26-192) 11/10/16 02:05 Troponin I < 0.02 ng/ml (0.00-0.05) 11/10/16 02:05 C-Reactive Protein 16.9 MG/DL (0.00-0.3) H D 11/10/16 02:05 Total Protein 5.6 g/dl (6.4-8.3) L 11/10/16 11:52 Albumin 2.9 g/dl (3.5-5.0) L D 11/10/16 11:52 Active Medications Generic Name Dose Route Start Last Admin Trade Name Freq PRN Reason Stop Dose Admin Acetaminophen 1,000 mg 11/10/16 05:17 11/11/16 06:37 Tylenol - PO 1,000 mg Q8H PRN Administration FEVER OR PAIN Amlodipine Besylate 10 mg 11/10/16 07:00 11/11/16 10:09 Norvasc - PO 10 mg AM OLGA LIDIA Administration Aspirin 81 mg 11/10/16 10:00 11/11/16 10:10 Asa - PO 81 mg DAILY OLGA LIDIA Administration Atorvastatin Calcium 10 mg 11/10/16 22:00 11/10/16 21:19 Lipitor - PO 10 mg HS OLGA LIDIA Administration Cholecalciferol 2,000 unit 11/10/16 10:00 11/11/16 10:12 Vitamin D3 - PO 2,000 unit DAILY OLGA LIDIA Administration Clotrimazole 1 applic 11/10/16 10:00 11/11/16 10:10 Lotrisone Cream (Small Tube) TP 1 applic BID OLGA LIDIA Administration Piperacillin Sod/Tazobactam Sod 50 mls @ 100 mls/hr 11/10/16 10:15 11/11/16 09: 00 Zosyn 2.25gm Ivpb (Pre-Docked) IVPB 100 mls/hr Q6H-IV OLGA LIDIA Administration Protocol Vancomycin HCl 250 mls @ 200 mls/hr 11/11/16 13:00 Vancomycin (Pre-Docked) IVPB BID@0100,1300 OLGA LIDIA Metoprolol Succinate 100 mg 11/10/16 10:00 11/11/16 10:16 Toprol Xl - PO 100 mg DAILY OLGA LIDIA Administration Morphine Sulfate 2 mg 11/11/16 09:44 11/11/16 10:14 Morphine Injection - IVPUSH 2 mg Q6H PRN Administration PAIN Oxycodone HCl 5 mg 11/10/16 18:28 11/11/16 06:37 Roxicodone - PO 5 mg Q4H PRN Administration PAIN LEVEL 1-5 Pantoprazole Sodium 40 mg 11/10/16 10:00 11/11/16 10:10 Protonix - PO 40 mg DAILY OLGA LIDIA Administration Microbiology 11/10/16 01:55 Blood - Peripheral Venous Blood Culture - Preliminary NO GROWTH OBTAINED AFTER 24 HOURS, INCUBATION TO CONTINUE FOR [address] scan of left lower extremity: stress fracture of medial sesmoid, deformity of head of second digit ASSESSMENT/PLAN: 1) ID: cellulitis of left foot, s/p left foot abscess I&D (11/10) - continue vanc and zosyn (renal dose) - monitior wbc and fever curve - Dr Moscoso, podiatry consulted and following 2) endo: niddm - hgb a1c 6.6 - fingersticks achs with regular insulin coverage 3) card:HTN - continue toprol and norvasc, hold hctz due to michell - b/p at goal 4) neph: michell - creatine 1.5, downtrending, baseline 0.9, likely prerenal secondary to ibuprofen - avoid nephrotic agents, repeat bmp this am f/e/n - low sodium/diabetic diet - replete lytes prn ppx - heparin - protonix - scd/mojgan - oob dispo: requires inpatient admission. Problem List - Problems (1) Cellulitis of left foot Code(s): L03.116 - CELLULITIS OF LEFT LOWER LIMB (2) Hypertension Code(s): I10 - ESSENTIAL (PRIMARY) HYPERTENSION (3) Hyperlipidemia Code(s): E78.5 - HYPERLIPIDEMIA, UNSPECIFIED (4) MICHELL (acute kidney injury) Code(s): N17.9 - ACUTE KIDNEY FAILURE, UNSPECIFIED (5) Diabetes mellitus Code(s): E11.9 - TYPE 2 DIABETES MELLITUS WITHOUT COMPLICATIONS Visit type - Emergency Visit Emergency Visit: Yes ED Registration Date: 11/10/16 Care time: The patient presented to the Emergency Department on the above date and was hospitalized for further evaluation of their emergent condition. - New Patient This patient is new to me today: No - Critical Care Critical Care patient: No - Discharge Referral Referred to [facility] Med P.C.: No
[2016-11-11] MEDS: ATORVASTATIN CA 10 MG TABLET (FP) PO SCH (21:26)
[2016-11-11] MEDS: HEPARIN NA (PORCINE) 5,000 UNITS/ML 1ML VIAL SQ SCH (21:26)
[2016-11-12] MEDS: VANCOMYCIN 1 GRAM (PRE-DOCKED) 250 ML IVPB SCH ×2 (01:14→13:04)
[2016-11-12] MEDS: PIPERACILLIN/TAZOB 2.25 GM 50 ML IVPB SCH ×4 (03:18→21:40)
[2016-11-12] MEDS: amLODIPine BESYLATE 10 MG TABLET (FP) PO SCH (06:43)
[2016-11-12] MEDS: morphine CARPU-JECT 2 MG/1 ML DISP.SYRIN IVPUSH PRN (07:40)
--- NOTE | 2016-11-12 08:11 | PN ---
Progress Note (short form) - Note Progress Note: Podiatry: Seen and evaluated at bedside, NAD, moderate pain to L foot, controlled with PO analgesics. S/p L foot incision and drainage of abscess POD #2. Afebrile, VSS. TESSA: L foot: post-surgical wound 1st interspace with mixed fibrogranular base, down to capsule, sutures coapted proximally and distally, central aspect of wound packed open. Surrounding erythema improving. No purulence on compression, no fluctuance, no soft tissue crepitus, moderate pain to palpation. Swelling reduced. No streaking cellulitis, no lymphangitis. WBC: none ordered OR Cx: pending Blood Cx: negative x 48 hrs Imp: 61 year old DM F s/p L foot incision and drainage of abscess 1. Continue with IV abx per Infectious Disease. May need few weeks of IV abx for treatment. 2. F/u OR cultures. 3. Would highly recommend CBC order to monitor white count. So far clinically improved. 4. Partial WB L heel with surgical shoe. 5. Glycemic control. 6. Needs home nursing care for local wound care. Needs 1/4" iodoform packing to surgical site. 7. Will follow. Upon discharge needs close follow up at [facility] wound healing center, [facility], 5th floor. [phone] Elizabeth Moscoso DPM
[2016-11-12 09:20] LABS: PLATELET COUNT 165 K/MM3 (134-434); RDW 13.3 % (11.6-15.6)
[2016-11-12 09:29] LABS: MCHC 32.8 g/dl (32.0-36.0); MEAN CELL VOLUME 88.5 fl (80-96); MEAN PLT VOLUME 8.6 fl (7.5-11.1); WHITE BLOOD COUNT 7.4 K/mm3 (4.0-10.8)
[2016-11-12] MEDS: ASPIRIN 81 MG CHEWABLE TABLETS PO SCH (09:33)
[2016-11-12] MEDS: METOPROLOL SUCCINATE 100 MG TAB.SR.24H (FP) PO SCH (09:33)
[2016-11-12] MEDS: PANTOPRAZOLE 40 MG TABLET (FP) PO SCH (09:33)
[2016-11-12] MEDS: HEPARIN NA (PORCINE) 5,000 UNITS/ML 1ML VIAL SQ SCH ×2 (09:34→21:40)
[2016-11-12] MEDS: CHOLECALCIFEROL (VITAMIN D3) 1,000 UNIT TABLET (FP) PO SCH (09:34)
--- NOTE | 2016-11-12 09:38 | PN ---
Physical Exam: SUBJECTIVE: Patient seen and examined, patient reports feeling well, reports pain has improved to the left foot, denies any paresthesia to the extremity. OBJECTIVE: Patient is a 61 y/o female with a past medical history of hypertension, niddm (diet controlled), bladder ca (remission), iron deficency anemia (receives venofer infusions) and rheumotoid arthritis. patient was admitted from the emergency department for cellulitis and abscess of the left foot after failing outpatient therapy. pt is s/p ID of left foot abscess 11/10/16 Vital Signs Period Temp Pulse Resp BP Sys/King Pulse Ox Last 24 Hr 98.5 F-99.7 F 62-77 17-18 126-154/53-68 94-100 GENERAL: The patient is awake, alert, and fully oriented, in no acute distress. HEAD: Normal with no signs of trauma. EYES: PERRL, extraocular movements intact, sclera anicteric, conjunctiva clear. No ptosis. ENT: Ears normal, nares patent, oropharynx clear without exudates, moist mucous membranes. NECK: Trachea midline, full range of motion, supple. LUNGS: Breath sounds equal, clear to auscultation bilaterally, no wheezes, no crackles, no accessory muscle use. HEART: Regular rate and rhythm, S1, S2 without murmur, rub or gallop. ABDOMEN: Soft, nontender, nondistended, normoactive bowel sounds, no guarding, no rebound, no hepatosplenomegaly, no masses. EXTREMITIES: 2+ pulses, warm, well-perfused, no edema. LEFT LOWER EXTREMITY: dressing intact, wound no accessed, less than 3 second capilary refill, +3 pedal pulse NEUROLOGICAL: Cranial nerves II through XII grossly intact. Normal speech, gait not observed. PSYCH: Normal mood, normal affect. SKIN: Warm, dry, normal turgor, no rashes or lesions noted Laboratory Results - last 24 hr 11/10/16 11/12/16 11/12/16 07:41 06:22 08:40 WBC 7.4 RBC 3.36 L Hgb 9.8 L D Hct 29.8 L MCV 88.5 MCH 29.0 MCHC 32.8 RDW 13.3 Plt Count 165 D MPV 8.6 Neutrophils % Y Lymphocytes % Y POC Glucometer 149 Blood Type Cancelled Antibody Screen Cancelled Spec Expiration Date Cancelled CMP Sodium 139 mmol/L (136-145) 11/12/16 08:40 Potassium 4.4 mmol/L (3.5-5.1) 11/12/16 08:40 Chloride 103 mmol/L (98-107) 11/12/16 08:40 Carbon Dioxide 29 mmol/L (22-28) H 11/12/16 08:40 Anion Gap 7 (8-16) L 11/12/16 08:40 BUN 19 mg/dl (7-18) H D 11/12/16 08:40 Creatinine 1.4 mg/dl (0.6-1.3) H 11/12/16 08:40 Creat Clearance w eGFR 35.07 (>60) 11/10/16 11:52 POC Glucometer 149 UNITS (()) 11/12/16 11:48 Random Glucose 185 mg/dl (74-106) H 11/12/16 08:40 Hemoglobin A1c % 6.6 % (4.8-6.0) H D 11/10/16 11:52 Lactic Acid 0.9 mmol/L (0.4-2.0) 11/10/16 01:55 Calcium 8.4 mg/dl (8.4-10.2) 11/12/16 08:40 Phosphorus 3.6 mg/dl (2.5-4.6) 11/12/16 08:40 Magnesium 1.8 mg/dL (1.8-2.4) 11/12/16 08:40 Total Bilirubin 0.4 mg/dl (0.2-1.0) D 11/10/16 11:52 AST 16 U/L (10-42) D 11/10/16 11:52 ALT 15 U/L (10-40) D 11/10/16 11:52 Alkaline Phosphatase 91 U/L (32-92) D 11/10/16 11:52 Creatine Kinase 49 IU/L (26-192) 11/10/16 02:05 Troponin I < 0.02 ng/ml (0.00-0.05) 11/10/16 02:05 C-Reactive Protein 16.9 MG/DL (0.00-0.3) H D 11/10/16 02:05 Total Protein 5.6 g/dl (6.4-8.3) L 11/10/16 11:52 Albumin 2.9 g/dl (3.5-5.0) L D 11/10/16 11:52 Active Medications Generic Name Dose Route Start Last Admin Trade Name Freq PRN Reason Stop Dose Admin Acetaminophen 1,000 mg 11/10/16 05:17 11/11/16 06:37 Tylenol - PO 1,000 mg Q8H PRN Administration FEVER OR PAIN Amlodipine Besylate 10 mg 11/10/16 07:00 11/12/16 06:43 Norvasc - PO 10 mg AM OLGA LIDIA Administration Aspirin 81 mg 11/10/16 10:00 11/11/16 10:10 Asa - PO 81 mg DAILY OLGA LIDIA Administration Atorvastatin Calcium 10 mg 11/10/16 22:00 11/11/16 21:26 Lipitor - PO 10 mg HS OLGA LIDIA Administration Cholecalciferol 2,000 unit 11/10/16 10:00 11/11/16 10:12 Vitamin D3 - PO 2,000 unit DAILY OLGA LIDIA Administration Clotrimazole 1 applic 11/10/16 10:00 11/11/16 21:25 Lotrisone Cream (Small Tube) TP 1 applic BID OLGA LIDIA Administration Heparin Sodium (Porcine) 5,000 unit 11/11/16 22:00 11/11/16 21:26 Heparin - SQ 5,000 unit BID OLGA LIDIA Administration Piperacillin Sod/Tazobactam Sod 50 mls @ 100 mls/hr 11/10/16 10:15 11/12/16 08: 23 Zosyn 2.25gm Ivpb (Pre-Docked) IVPB 100 mls/hr Q6H-IV OLGA LIDIA Administration Protocol Vancomycin HCl 250 mls @ 200 mls/hr 11/11/16 13:00 11/12/16 01:14 Vancomycin (Pre-Docked) IVPB 200 mls/hr BID@0100,1300 OLGA LIDIA Administration Metoprolol Succinate 100 mg 11/10/16 10:00 11/11/16 10:16 Toprol Xl - PO 100 mg DAILY OLGA LIDIA Administration Morphine Sulfate 2 mg 11/11/16 09:44 11/12/16 07:40 Morphine Injection - IVPUSH 2 mg Q6H PRN Administration PAIN Oxycodone HCl 5 mg 11/10/16 18:28 11/11/16 06:37 Roxicodone - PO 5 mg Q4H PRN Administration PAIN LEVEL 1-5 Pantoprazole Sodium 40 mg 11/10/16 10:00 11/11/16 10:10 Protonix - PO 40 mg DAILY OLGA LIDIA Administration Microbiology 11/10/16 18:30 Foot - Left Plantar Gram Stain - Final 11/10/16 18:30 Foot - Left Plantar Wound Culture - Preliminary NO GROWTH OBTAINED AFTER 24 HOURS INCUBATION, REINCUBATED. 11/10/16 01:55 Blood - Peripheral Venous Blood Culture - Preliminary NO GROWTH OBTAINED AFTER 48 HOURS, INCUBATION TO CONTINUE FOR [address] scan of left lower extremity: stress fracture of medial sesmoid, deformity of head of second digit ASSESSMENT/PLAN: 1) ID: cellulitis of left foot, s/p left foot abscess I&D (11/10) - continue vanc awaiting vanc trough will dose accordingly and zosyn (renal dose ) - leukocytosis resolved pt is afebrile, wound and blood cultures NTD - Dr Moscoso, podiatry consulted and following 2) endo: niddm - hgb a1c 6.6 - fingersticks achs with regular insulin coverage 3) card:HTN - continue toprol and norvasc, hold hctz due to michell - b/p at goal 4) neph: michell - creatine 1.4, downtrending, baseline 0.9, likely prerenal secondary to ibuprofen - avoid nephrotic agents, repeat bmp in am f/e/n - low sodium/diabetic diet - replete lytes prn ppx - heparin - protonix - scd/mojgan - oob dispo: requires inpatient admission. Problem List - Problems (1) Cellulitis of left foot Code(s): L03.116 - CELLULITIS OF LEFT LOWER LIMB (2) Hypertension Code(s): I10 - ESSENTIAL (PRIMARY) HYPERTENSION (3) Hyperlipidemia Code(s): E78.5 - HYPERLIPIDEMIA, UNSPECIFIED (4) MICHELL (acute kidney injury) Code(s): N17.9 - ACUTE KIDNEY FAILURE, UNSPECIFIED (5) Diabetes mellitus Code(s): E11.9 - TYPE 2 DIABETES MELLITUS WITHOUT COMPLICATIONS Visit type - Emergency Visit Emergency Visit: Yes ED Registration Date: 11/10/16 Care time: The patient presented to the Emergency Department on the above date and was hospitalized for further evaluation of their emergent condition. - New Patient This patient is new to me today: No - Critical Care Critical Care patient: No - Discharge Referral Referred to [facility] Med P.C.: No
[2016-11-12 10:04] LABS: ANION GAP 7 (8-16); CALCIUM 8.4 mg/dl (8.4-10.2); CO2 29 mmol/L (22-28); CREATININE 1.4 mg/dl (0.6-1.3); GLUCOSE,RANDOM 185 mg/dl (74-106); MAGNESIUM 1.8 mg/dL (1.8-2.4); PHOSPHOROUS 3.6 mg/dl (2.5-4.6)
[2016-11-12] MEDS: CLOTRIMAZOLE/BETAMET DIPROP 15 GM TUBE TP SCH ×2 (11:00→21:40)
--- NOTE | 2016-11-12 11:34 | PN ---
Progress Note, Physician History of Present Illness: Reports pain, L foot metatarsal heads No fever/ chills Tolerating antibiotics - Current Medication List Current Medications: Active Medications Acetaminophen (Tylenol -) 1,000 mg PO Q8H PRN PRN Reason: FEVER OR PAIN Last Admin: 11/11/16 06:37 Dose: 1,000 mg Amlodipine Besylate (Norvasc -) 10 mg PO AM [facility] Last Admin: 11/12/16 06:43 Dose: 10 mg Aspirin (Asa -) 81 mg PO DAILY [facility] Last Admin: 11/12/16 09:33 Dose: 81 mg Atorvastatin Calcium (Lipitor -) 10 mg PO HS [facility] Last Admin: 11/11/16 21:26 Dose: 10 mg Cholecalciferol (Vitamin D3 -) 2,000 unit PO DAILY [facility] Last Admin: 11/12/16 09:34 Dose: 2,000 unit Clotrimazole (Lotrisone Cream (Small Tube)) 1 applic TP BID [facility] Last Admin: 11/11/16 21:25 Dose: 1 applic Heparin Sodium (Porcine) (Heparin -) 5,000 unit SQ BID [facility] Last Admin: 11/12/16 09:34 Dose: 5,000 unit Piperacillin Sod/Tazobactam Sod (Zosyn 2.25gm Ivpb (Pre-Docked)) 50 mls @ 100 mls/hr IVPB Q6H-IV OLGA LIDIA PRN Reason: Protocol Last Admin: 11/12/16 08:23 Dose: 100 mls/hr Vancomycin HCl (Vancomycin (Pre-Docked)) 250 mls @ 200 mls/hr IVPB BID@0100, 1300 [facility] Last Admin: 11/12/16 01:14 Dose: 200 mls/hr Metoprolol Succinate (Toprol Xl -) 100 mg PO DAILY [facility] Last Admin: 11/12/16 09:33 Dose: 100 mg Morphine Sulfate (Morphine Injection -) 2 mg IVPUSH Q6H PRN PRN Reason: PAIN Last Admin: 11/12/16 07:40 Dose: 2 mg Oxycodone HCl (Roxicodone -) 5 mg PO Q4H PRN PRN Reason: PAIN LEVEL 1-5 Last Admin: 11/11/16 06:37 Dose: 5 mg Pantoprazole Sodium (Protonix -) 40 mg PO DAILY [facility] Last Admin: 11/12/16 09:33 Dose: 40 mg - Objective Vital Signs: Vital Signs Temperature 98.6 F 11/12/16 08:06 Pulse Rate 71 11/12/16 08:06 Respiratory Rate 18 11/12/16 08:07 Blood Pressure 148/56 11/12/16 08:06 O2 Sat by Pulse Oximetry (%) 96 11/12/16 08:07 Constitutional: Yes: No Distress Eyes: Yes: Conjunctiva Clear Cardiovascular: Yes: Regular Rate and Rhythm, S1, S2 Respiratory: Yes: CTA Bilaterally Gastrointestinal: Yes: Normal Bowel Sounds, Soft. No: Tenderness Extremities: Yes: Other (decreased erythema/ swelling dorsum of foot Incisional wound packed) Labs: CBC, BMP 11/12/16 08:40 11/12/16 08:40 INR, PTT INR 1.17 (0.82-1.09) 11/10/16 07:41 Assessment/Plan L diabetic foot infection s/p I&D + wound c/s MRSA Azotemia Continue vancomycin/zosyn
[2016-11-12 13:15] LABS: METAMYELOCYTE 1 % (0-2)
[2016-11-12] MEDS: POLYETHYLENE GLYCOL 3350 119 GM BTL PO SCH (16:00)
[2016-11-12] MEDS: DOCUSATE SODIUM 100 MG CAPSULE (FP) PO SCH ×2 (16:00→21:40)
[2016-11-12] MEDS: ATORVASTATIN CA 10 MG TABLET (FP) PO SCH (21:40)
[2016-11-12] MEDS: oxyCODONE HCL 5 MG TABLET PO PRN (21:51)
[2016-11-13] MEDS: PIPERACILLIN/TAZOB 2.25 GM 50 ML IVPB SCH ×4 (03:59→20:48)
[2016-11-13] MEDS: oxyCODONE HCL 5 MG TABLET PO PRN ×3 (04:43→22:20)
[2016-11-13] MEDS: DOCUSATE SODIUM 100 MG CAPSULE (FP) PO SCH ×3 (06:29→22:21)
[2016-11-13] MEDS: amLODIPine BESYLATE 10 MG TABLET (FP) PO SCH (06:29)
[2016-11-13 08:51] LABS: MCH 29.9 pg (25.7-33.7); MCHC 33.4 g/dl (32.0-36.0); MEAN CELL VOLUME 89.4 fl (80-96); MEAN PLT VOLUME 8.8 fl (7.5-11.1); PLATELET COUNT 180 K/MM3 (134-434); RDW 13.4 % (11.6-15.6)
[2016-11-13 08:59] LABS: ANION GAP 9 (8-16); CALCIUM 8.9 mg/dl (8.4-10.2); CO2 29 mmol/L (22-28); CREATININE 1.3 mg/dl (0.6-1.3); GLUCOSE,RANDOM 144 mg/dl (74-106); MAGNESIUM 1.9 mg/dL (1.8-2.4); PHOSPHOROUS 3.7 mg/dl (2.5-4.6)
[2016-11-13] MEDS: CHOLECALCIFEROL (VITAMIN D3) 1,000 UNIT TABLET (FP) PO SCH (09:10)
[2016-11-13] MEDS: ASPIRIN 81 MG CHEWABLE TABLETS PO SCH (09:10)
[2016-11-13] MEDS: PANTOPRAZOLE 40 MG TABLET (FP) PO SCH (09:10)
[2016-11-13] MEDS: POLYETHYLENE GLYCOL 3350 119 GM BTL PO SCH (09:10)
[2016-11-13] MEDS: METOPROLOL SUCCINATE 100 MG TAB.SR.24H (FP) PO SCH (09:10)
[2016-11-13] MEDS: HEPARIN NA (PORCINE) 5,000 UNITS/ML 1ML VIAL SQ SCH ×2 (09:11→22:21)
[2016-11-13] MEDS: CLOTRIMAZOLE/BETAMET DIPROP 15 GM TUBE TP SCH ×2 (09:11→22:21)
[2016-11-13] MEDS ORDERED: PT OWN MED DRAWER 7, Y5N ONE ×3 (09:56→22:17)
--- NOTE | 2016-11-13 09:56 | PN ---
Progress Note, Physician History of Present Illness: Awake, alert No complaints of foot pain No fever/ chills WBC improved- WNL Azotemia improved BC, repeat wound c/s no growth - Current Medication List Current Medications: Active Medications Acetaminophen (Tylenol -) 1,000 mg PO Q8H PRN PRN Reason: FEVER OR PAIN Last Admin: 11/11/16 06:37 Dose: 1,000 mg Amlodipine Besylate (Norvasc -) 10 mg PO AM [facility] Last Admin: 11/13/16 06:29 Dose: 10 mg Aspirin (Asa -) 81 mg PO DAILY [facility] Last Admin: 11/13/16 09:10 Dose: 81 mg Atorvastatin Calcium (Lipitor -) 10 mg PO HS [facility] Last Admin: 11/12/16 21:40 Dose: 10 mg Cholecalciferol (Vitamin D3 -) 2,000 unit PO DAILY [facility] Last Admin: 11/13/16 09:10 Dose: 2,000 unit Clotrimazole (Lotrisone Cream (Small Tube)) 1 applic TP BID [facility] Last Admin: 11/13/16 09:11 Dose: 1 applic Docusate Sodium (Colace -) 100 mg PO TID [facility] Last Admin: 11/13/16 06:29 Dose: 100 mg Heparin Sodium (Porcine) (Heparin -) 5,000 unit SQ BID [facility] Last Admin: 11/13/16 09:11 Dose: 5,000 unit Piperacillin Sod/Tazobactam Sod (Zosyn 2.25gm Ivpb (Pre-Docked)) 50 mls @ 100 mls/hr IVPB Q6H-IV OLGA LIDIA PRN Reason: Protocol Last Admin: 11/13/16 09:10 Dose: 100 mls/hr Vancomycin HCl (Vancomycin (Pre-Docked)) 250 mls @ 200 mls/hr IVPB BID@0100, 1300 [facility] Last Admin: 11/12/16 13:04 Dose: 200 mls/hr Metoprolol Succinate (Toprol Xl -) 100 mg PO DAILY [facility] Last Admin: 11/13/16 09:10 Dose: 100 mg Morphine Sulfate (Morphine Injection -) 2 mg IVPUSH Q6H PRN PRN Reason: PAIN Last Admin: 11/12/16 07:40 Dose: 2 mg Oxycodone HCl (Roxicodone -) 5 mg PO Q4H PRN PRN Reason: PAIN LEVEL 1-5 Last Admin: 11/13/16 04:43 Dose: 5 mg Pantoprazole Sodium (Protonix -) 40 mg PO DAILY [facility] Last Admin: 11/13/16 09:10 Dose: 40 mg Polyethylene Glycol (Miralax (For Daily Use) -) 17 gm PO DAILY [facility] Last Admin: 11/13/16 09:10 Dose: 17 gm - Objective Vital Signs: Vital Signs Temperature 98.7 F 11/13/16 05:34 Pulse Rate 78 11/13/16 05:34 Respiratory Rate 20 11/13/16 05:34 Blood Pressure 132/43 11/13/16 05:34 O2 Sat by Pulse Oximetry (%) 99 11/13/16 05:34 Constitutional: Yes: No Distress Eyes: Yes: Conjunctiva Clear Cardiovascular: Yes: Regular Rate and Rhythm, S1, S2 Respiratory: Yes: CTA Bilaterally Gastrointestinal: Yes: Normal Bowel Sounds, Soft. No: Tenderness Extremities: Yes: Other (foot wound, first web space clean no drainage swelling and erythema of foot resolved) Labs: CBC, BMP 11/13/16 07:00 11/13/16 07:00 INR, PTT INR 1.17 (0.82-1.09) 11/10/16 07:41 Assessment/Plan L diabetic foot infection s/p I&D + wound c/s MRSA Azotemia Sulfa allergy May substitute doxycycline 100mg po bid + levaquin 500mg po qd for additional 7d Outpatient podiatry follow up
[2016-11-13] MEDS: ACETAMINOPHEN 500 MG TABLET (FP) PO PRN ×2 (10:03→22:20)
[2016-11-13] MEDS: VANCOMYCIN 1 GRAM (PRE-DOCKED) 250 ML IVPB SCH (13:41)
--- NOTE | 2016-11-13 13:59 | DS ---
Physical Exam: SUBJECTIVE: Patient seen and examined, reports feeling better, denies any pain OBJECTIVE: Patient is a 61 y/o female with a past medical history of hypertension, niddm (diet controlled), bladder ca (remission) and rheumotoid arthritis. Patient reports on Wednesday, November 02, 2016 she was evaluated in this emergency department for ongoing pain to the left foot. She was started on clindamycin and prednisone for questionable gout. patient reports compliance with prescribed antibiotics. However, the pain worsened to the extremity and she was evaluated by her PCP, Dr Harvey on 11/06/16. In the office, a splinter was removed from the plantar of the foot and drainage was cultured which resulted as positive for MRSA and enterococous. She was started on augmentin, patient reports compliance with prescribed antibiotics. She reports ongoing fever, tmax 101.0 for the past 3 day unresolved with ibuprofen "around the clock" as per patient. As a result, she sought evaluation in the emergency department. ER course was notable for: (1) wbc 11.3 (2) chest xray, no acute pathology (3)xray of left foot, no fracture no foreign body Vital Signs Period Temp Pulse Resp BP Sys/King Pulse Ox Last 24 Hr 98.1 F-98.7 F 63-78 18-20 132-141/43-63 96-100 PHYSICAL EXAM GENERAL: The patient is awake, alert, and fully oriented, in no acute distress. HEAD: Normal with no signs of trauma. EYES: PERRL, extraocular movements intact, sclera anicteric, conjunctiva clear. No ptosis. ENT: Ears normal, nares patent, oropharynx clear without exudates, moist mucous membranes. NECK: Trachea midline, full range of motion, supple. LUNGS: Breath sounds equal, clear to auscultation bilaterally, no wheezes, no crackles, no accessory muscle use. HEART: Regular rate and rhythm, S1, S2 without murmur, rub or gallop. ABDOMEN: Soft, nontender, nondistended, normoactive bowel sounds, no guarding, no rebound, no hepatosplenomegaly, no masses. EXTREMITIES: 2+ pulses, warm, well-perfused, no edema. LEFT LOWER EXTREMITY: dressing intact, packing removed wound no accessed, less than 3 second capilary refill, +3 pedal pulse NEUROLOGICAL: Cranial nerves II through XII grossly intact. Normal speech, gait not observed. PSYCH: Normal mood, normal affect. SKIN: Warm, dry, normal turgor, no rashes or lesions noted LABS Laboratory Results - last 24 hr 11/13/16 11/13/16 11/13/16 07:00 07:00 12:06 WBC 9.0 RBC 3.54 L Hgb 10.6 L Hct 31.6 L MCV 89.4 MCH 29.9 MCHC 33.4 RDW 13.4 Plt Count 180 MPV 8.8 Neutrophils % Y Lymphocytes % Y Sodium 139 Potassium 4.4 Chloride 101 Carbon Dioxide 29 H Anion Gap 9 BUN 20 H Creatinine 1.3 POC Glucometer 131 Random Glucose 144 H D Calcium 8.9 Phosphorus 3.7 Magnesium 1.9 Microbiology 11/10/16 18:30 Foot - Left Plantar Gram Stain - Final 11/10/16 18:30 Foot - Left Plantar Wound Culture - Preliminary Presumptive Mrsa (Pbp2a Pos) 11/10/16 01:55 Blood - Peripheral Venous Blood Culture - Preliminary NO GROWTH OBTAINED AFTER 72 HOURS, INCUBATION TO CONTINUE FOR [address] scan of left lower extremity: stress fracture of medial sesmoid, deformity of head of second digit HOSPITAL COURSE: * cellulitis of left foot, s/p left foot abscess I&D (11/10), Dr Moscoso, patient was treated with vancomycin and zosyn (renal dose) for [address] Valentin, ID consulted and followed. leukocytosis resolved patient is now afebrile, wound cultures + MRSA blood culture NTD, xeroform dressing packing changed daily * niddm hgb a1c 6.6, fingersticks achs with regular insulin coverage * HTN, toprol and norvasc continued, b/p at goal, hctz held due to michell * MICHELL, creatine, likely prerenal secondary to ibuprofen, creatine downtrended PLAN -discharge home with VNS, doxycline and levaquin - partial weight bearing to left heal with surgical shoe - / idoform packing to surgical site daily - follow up with wound care at [facility] Date of Admission:11/10/16 Date of Discharge: 11/13/16 Minutes to complete discharge: 45 Discharge Summary Reason For Visit: CELLULITIS OF LEFT FOOT Current Active Problems MICHELL (acute kidney injury) (Acute) Cellulitis of left foot (Acute) Diabetes mellitus (Acute) Hyperlipidemia (Acute) Hypertension (Acute) Condition: Guarded - Instructions Diet, Activity, Other Instructions: continue levaquin and doxycline daily please take all antibiotics with food tylenol or ibuprofen for minimal pain oxycodone for severe pain, do not drive when taking oxycodone WOUND CARE INSTRUCTIONS - partial weight bearing to left heal with surgical shoe - / idoform packing to surgical site then cover with 4x4 and cling daily - close followup up at [facility], [facility] [address], . if any new or persistent symptoms develop please return to the emergency department Referrals: Alexi Valentin MD [Staff Physician] - Andrea Moscoso MD [Staff Physician] - () Aravind Harvey MD [Primary Care Provider] - 1 Week () Disposition: HOME - Home Medications Comprehensive Discharge Medication List: Ambulatory Orders Hydrochlorothiazide 12.5 mg PO AM tablet 01/17/16 Olmesartan Medoxomil [Benicar] 20 mg PO AM tablet 01/17/16 Aspirin [ASA -] 81 mg PO DAILY 02/13/16 Cholecalciferol (Vitamin D3) [D3-2000] 2,000 unit PO DAILY 03/26/16 Ibuprofen [Motrin -] 600 mg PO TID #21 tablet 11/03/16 Amoxicillin - [Amoxicillin 875mg Tablet -] 875 mg PO BID 11/10/16 Problem List - Problems (1) Cellulitis of left foot Code(s): L03.116 - CELLULITIS OF LEFT LOWER LIMB (2) Hypertension Code(s): I10 - ESSENTIAL (PRIMARY) HYPERTENSION (3) Hyperlipidemia Code(s): E78.5 - HYPERLIPIDEMIA, UNSPECIFIED (4) MICHELL (acute kidney injury) Code(s): N17.9 - ACUTE KIDNEY FAILURE, UNSPECIFIED (5) Diabetes mellitus Code(s): E11.9 - TYPE 2 DIABETES MELLITUS WITHOUT COMPLICATIONS This patient is new to me today: No Emergency Visit: Yes ED Registration Date: 11/10/16 Care time: The patient presented to the Emergency Department on the above date and was hospitalized for further evaluation of their emergent condition. Critical Care patient: No - Discharge Referral Referred to [facility] Med P.C.: Yes Physician Referral: Aravind Harvey MD (Int Med)
[2016-11-13] MEDS: ATORVASTATIN CA 10 MG TABLET (FP) PO SCH (22:21)
[2016-11-14] MEDS: VANCOMYCIN 1 GRAM (PRE-DOCKED) 250 ML IVPB SCH ×2 (00:31→12:40)
[2016-11-14] MEDS: morphine CARPU-JECT 2 MG/1 ML DISP.SYRIN IVPUSH PRN (00:36)
[2016-11-14] MEDS: PIPERACILLIN/TAZOB 2.25 GM 50 ML IVPB SCH ×2 (02:51→08:40)
[2016-11-14] MEDS: amLODIPine BESYLATE 10 MG TABLET (FP) PO SCH (07:05)
[2016-11-14] MEDS: DOCUSATE SODIUM 100 MG CAPSULE (FP) PO SCH (07:06)
[2016-11-14 07:20] VITALS: BP 153/67; PULSE 69; TEMP 98.1
--- NOTE | 2016-11-14 08:22 | PN ---
Progress Note (short form) - Note Progress Note: Podiatry: Seen/evaluated at bedside, NAD. Pain well controlled, denies F/V/N/C/SOB/CP. S /p L foot incision and drainage in OR. Afebrile, VSS. TESSA: L foot: post-surgical wound 1st interspace with sutures coapted proximally and distally, central aspect of wound packed open. Mixed fibrogranular wound base with no purulent drainage, no fluctuance, mild tenderness to palpation, periwound erythema improved, no streaking cellulitis, no lymphangitis, no signs of acute infection. WBC: 9.0 Imp: 61 year old DM F s/p L foot incision and drainage 1. Saline moist to dry packed into wound. 2. Needs home nursing service for wound care with iodoform packing to surgical site 3. Partial WB L heel with surgical shoe 4. Abx per ID 5. Podiatry stable for discharge. Will f/u on Wednesday at [facility] [address] [place]. Elizabeth Moscoso DPM
[2016-11-14] MEDS: ASPIRIN 81 MG CHEWABLE TABLETS PO SCH (10:12)
[2016-11-14] MEDS: CHOLECALCIFEROL (VITAMIN D3) 1,000 UNIT TABLET (FP) PO SCH (10:12)
[2016-11-14] MEDS: oxyCODONE HCL 5 MG TABLET PO PRN (10:12)
[2016-11-14] MEDS: PANTOPRAZOLE 40 MG TABLET (FP) PO SCH (10:13)
[2016-11-14] MEDS: METOPROLOL SUCCINATE 100 MG TAB.SR.24H (FP) PO SCH (10:13)
[2016-11-14] MEDS: CLOTRIMAZOLE/BETAMET DIPROP 15 GM TUBE TP SCH (10:14)
[2016-11-14] MEDS: HEPARIN NA (PORCINE) 5,000 UNITS/ML 1ML VIAL SQ SCH (10:17)
[2016-11-14] MEDS: POLYETHYLENE GLYCOL 3350 119 GM BTL PO SCH (12:37)
== END 2016-11-14 15:30 | disposition home or self-care (01) | DRG 623 ==
LOC: FER 01:27 → FM/S 03:28
PROVIDERS: ADMIT Internal Medicine; ATTEND Nurse Practitioner Family
PROC: 0JBR0ZZ Excision of Left Foot Subcutaneous Tissue and Fascia, Open Approach (ICD-10-PCS; principal; 2016-11-10 17:50)
DX: E11.628 Type 2 diabetes mellitus with other skin complications (principal); L03.116 Cellulitis of left lower limb; L02.612 Cutaneous abscess of left foot; N17.9 Acute kidney failure, unspecified; I25.10 Atherosclerotic heart disease of native coronary artery without angina pectoris; I10 Essential (primary) hypertension; E78.5 Hyperlipidemia, unspecified; B95.62 Methicillin resistant Staphylococcus aureus infection as the cause of diseases classified elsewhere; D50.8 Other iron deficiency anemias; M06.80 Other specified rheumatoid arthritis, unspecified site; N14.1 Nephropathy induced by other drugs, medicaments and biological substances; T39.315A Adverse effect of propionic acid derivatives, initial encounter; Y92.89 Other specified places as the place of occurrence of the external cause; E66.8 Other obesity; Z87.891 Personal history of nicotine dependence; Z96.651 Presence of right artificial knee joint; Z98.84 Bariatric surgery status; Z85.51 Personal history of malignant neoplasm of bladder; Z95.5 Presence of coronary angioplasty implant and graft; Z68.35 Body mass index [BMI] 35.0-35.9, adult; Z71.3 Dietary counseling and surveillance
CPT/HCPCS: 36415; 71010-TC; 73630-TC-LT; 73700-TC-RT; 80048; 80053; 81003; 81015; 83036; 83605; 83735; 84100; 84484; 85025; 85610; 85651; 85730; 86140; 86850; 86900; 86901; 87040; 87070; 87186; 87205; 93005; 94760; 99282-25; G0480; J1644

== ENCOUNTER 2017-01-26 11:19 | Inpatient (IN) | payer OTHER, BC ==
[2017-01-26 11:47] VITALS: BMI 34.0
--- NOTE | 2017-01-26 11:55 | PDOC ---
History of Present Illness - History of Present Illness Initial Comments: 01/26/17 12:08 This 61-year-old woman with a history of hypertension, CAD (S/P stent placement) , DM (reported remission after bariatric surgery), bladder cancer (2007), iron deficiency anemia, who presents to the ED for admission as per Dr. Mjeia request for IV antibiotic treatment of a wound to the left foot which was positive for "Pseudomonas Aeruginosa, Mr S Aureus, Enterococcus Faecalis", as well as, osteomyelitis on recent MRI. The patient states she has a nurse visit her home 3x a week to redress her wounds. The patient also states her daughter helps her redress her wound on the days the nurse does not come. She reports having a debridement of the wound last on November 10. The patient reports seeing Dr. Valentin a few weeks ago. She states she can weight bear on her left foot, however, admits to pain. She ambulates with canes in both hands for support. The patient reports "a bad reaction to the antibiotics" when she was last admitted, which she reports involved blisters on her hands bilaterally. The patient states she believes the reaction was from Levaquin. She states she has an appointment for an echocardiogram next with Dr. Ortiz She denies chest pain, shortness of breath, headache and dizziness. She denies fever, chills, nausea, vomit, diarrhea and constipation. She denies dysuria, frequency, urgency and hematuria. Allergies: Sulfa drugs Past surgical history: right TKR, stents, left tibial plateau fx repair w/ hardware, gastric bypass (2003) Social history: Denies toxic habits, former smoker (quit 2007) PCP: Dr. Harvey Outpatient Interviewing Clerk: Dr. Mejia Infectious Disease: Dr. Valentin Binder And Box Builder: Dr. Ortiz <Saundra Meraz - Last Filed: 01/26/17 12:18> - History of Present Illness Initial Comments: 01/27/17 07:57 Physical exam: Alert and oriented well-developed well-nourished no acute distress cheerful and cooperative Afebrile, vital signs stable Pale, nonicteric PERRLA, fundi benign, ENT clear Neck supple without bruit mass or nodes Chest clear CV regular without murmur rub or gallop Abdomen soft nontender without mass or organomegaly Neurological intact Extremities: There is a purulent ulcer in the webspace between the first and second toes, right foot. Impression: Patient has a nonhealing healing ulceration over the foot, mild peripheral neuropathy, and evidence of osteomyelitis on MRI Plan: Cultures and admission for intravenous antibiotics. Probably will need aport for long-term administration. Discussed with hospitalist. Consultation with Dr. Valentin was ordered, infectious disease. He is familiar with the patient from prior treatment. Patient stable upon transfer to the [facility] for further treatment. <Curtis Deleon - Last Filed: 01/27/17 07:59> - General Chief Complaint: Wound Stated Complaint: LEFT FOOT ULCER Time Seen by Provider: 01/26/17 11:37 Past History <Saundra Meraz - Last Filed: 01/26/17 12:18> - Past Medical History Anemia: Yes Asthma: No Cancer: Yes (bladder ca) Cardiac Disorders: Yes (STENTS 1999) CVA: No COPD: No CHF: No Dementia: No Diabetes: Yes (improved with sx) GI Disorders: No Disorders: No HTN: Yes Hypercholesterolemia: Yes Liver Disease: No Seizures: No Thyroid Disease: No - Surgical History Abdominal Surgery: Yes (gastric bypass) Appendectomy: No Cardiac Surgery: Yes (stents) Cholecystectomy: No Lung Surgery: No Neurologic Surgery: No Orthopedic Surgery: Yes (RTKR 2010, L leg ORIF) - Suicide/Smoking/Psychosocial Hx Smoking Status: Yes Smoking History: Unknown if ever smoked Have you smoked in the past 12 months: No Number of Cigarettes Smoked Daily: 30 If you are a former smoker, when did you quit?: 2007 Information on smoking cessation initiated: No Hx Alcohol Use: (occasional) Drug/Substance Use Hx: No Substance Use Type: Alcohol Hx Substance Use Treatment: No <Curtis Deleon - Last Filed: 01/27/17 07:59> - Past Medical History Allergies/Adverse Reactions: Allergies Allergy/AdvReac Type Severity Reaction Status Date / Time Sulfa (Sulfonamide Allergy Verified 11/10/16 01:29 Antibiotics) Home Medications: Ambulatory Orders Olmesartan Medoxomil [Benicar] 20 mg PO AM tablet 01/17/16 Aspirin [ASA -] 81 mg PO DAILY 02/13/16 Cholecalciferol (Vitamin D3) [D3-1999] 2,000 unit PO DAILY 03/26/16 Ibuprofen [Motrin -] 600 mg PO TID #21 tablet 11/03/16 Polyethylene Glycol 3350 [Miralax 119 gm Btl -] 17 gm PO DAILY bottle 11/13/16 Collagenase Clostridium Hist. [Santyl] 90 gm TP DAILY #90 oint...g. 01/05/17 Mupirocin Ointment [Bactroban] 1 applic TP BID #1 tube 01/05/17 Review of Systems - Review of Systems Able to Perform ROS?: Yes Comments:: 01/26/17 12:11 CONSTITUTIONAL: Absent: fever, chills, diaphoresis, generalized weakness, malaise, loss of appetite HEENT: Absent: rhinorrhea, nasal congestion, throat pain, throat swelling, difficulty swallowing, mouth swelling, ear pain, eye pain, visual Changes CARDIOVASCULAR: Absent: chest pain, syncope, palpitations, irregular heart rate, lightheadedness , peripheral edema RESPIRATORY: Absent: cough, shortness of breath, dyspnea with exertion, orthopnea, wheezing, stridor, hemoptysis GASTROINTESTINAL: Absent: abdominal pain, abdominal distension, nausea, vomiting, diarrhea, constipation, melena, hematochezia GENITOURINARY: Absent: dysuria, frequency, urgency, hesitancy, hematuria, flank pain, genital pain MUSCULOSKELETAL: (+) pain to left foot. Absent: myalgia, arthralgia, joint swelling SKIN: (+) ulcer to left foot. Absent: rash, itching, pallor HEMATOLOGIC/IMMUNOLOGIC: Absent: easy bleeding, easy bruising, lymphadenopathy, frequent infections ENDOCRINE: Absent: unexplained weight gain, unexplained weight loss, heat intolerance, cold intolerance NEUROLOGIC: Absent: headache, focal weakness or paresthesia, dizziness, unsteady gait, seizure, mental status changes, bladder or bowel incontinence PSYCHIATRIC: Absent: anxiety, depression, suicidal or homicidal ideation, hallucinations <Saundra Meraz - Last Filed: 01/26/17 12:18> *Physical Exam - Vital Signs Last Vital Signs Temp Pulse Resp BP Pulse Ox 99.5 F 85 18 154/80 100 01/26/17 11:20 01/26/17 11:20 01/26/17 11:20 01/26/17 11:20 01/26/17 11:20 - Physical Exam Comments: 01/26/17 12:12 GENERAL: Well developed, well nourished. Awake and alert. No acute distress. HEENT: Normocephalic, atraumatic. PERRLA, EOMI. No conjunctival pallor. Sclera are non- icteric. Moist mucous membranes. Oropharynx is clear. NECK: Supple. Full ROM. No JVD. Carotid pulses 2+ and symmetric, without bruits. No thyromegaly. No lymphadenopathy. CARDIOVASCULAR: Regular rate and rhythm. No murmurs, rubs, or gallops. Distal pulses are 2+ and symmetric. PULMONARY: No evidence of respiratory distress. Lungs clear to auscultation bilaterally. No wheezing, rales or rhonchi. ABDOMINAL: Soft. Non-tender. Non-distended. No rebound or guarding. No organomegaly. Normoactive bowel sounds. MUSCULOSKELETAL Normal range of motion at all joints. No bony deformities or tenderness. No CVA tenderness. EXTREMITIES: (+) left foot bandaged. No cyanosis. No clubbing. No calf tenderness. SKIN: Warm and dry. Normal capillary refill. No rashes. No jaundice. NEUROLOGICAL: Alert, awake, appropriate. Cranial nerves 2-12 intact. No motor deficits in the upper extremities and lower extremities. Normoreflexic in the upper and lower extremities. Normal speech. gait unassessed due to pain. PSYCHIATRIC: Cooperative. Good eye contact. Appropriate mood and affect. <Saundra Meraz - Last Filed: 01/26/17 12:18> - Vital Signs Last Vital Signs Temp Pulse Resp BP Pulse Ox 99.5 F 85 18 154/80 100 01/26/17 11:20 01/26/17 11:20 01/26/17 11:20 01/26/17 11:20 01/26/17 11:20 <Curtis Deleon - Last Filed: 01/27/17 07:59> ED Treatment Course - LABORATORY CBC & Chemistry Diagram: 01/26/17 12:17 01/26/17 12:17 <Curtis Deleon - Last Filed: 01/27/17 07:59> *DC/Admit/Observation/Transfer - Attestations Scribe Attestion: 01/26/17 12:13 Documentation prepared by Saundra Meraz, acting as medical writer for Curtis Muñoz MD <Saundra Meraz - Last Filed: 01/26/17 12:18> - Discharge Dispostion Admit: Yes <Curtis Deleon - Last Filed: 01/27/17 07:59> Diagnosis at time of Disposition: Osteomyelitis Qualifiers: Osteomyelitis type: subacute Osteomyelitis location: foot Laterality: left Qualified Code(s): M86.272 - Subacute osteomyelitis, left ankle and foot - Discharge Dispostion Condition at time of disposition: Stable - Referrals
[2017-01-26 12:28] LABS: BASOPHIL 1.6 % (0-2.0); EOSINOPHIL 1.7 % (0-4.5); MCH 27.9 pg (25.7-33.7); MCHC 32.6 g/dl (32.0-36.0); MEAN CELL VOLUME 85.7 fl (80-96); MEAN PLT VOLUME 8.5 fl (7.5-11.1); NEUTROPHILS 48.2 % (42.8-82.8); PLATELET COUNT 161 K/MM3 (134-434); RDW 15.1 % (11.6-15.6); WHITE BLOOD COUNT 5.8 K/mm3 (4.0-10.8)
[2017-01-26 12:47] LABS: ALBUMIN 3.5 g/dl (3.5-5.0); ALK PHOS 102 U/L (32-92); ANION GAP 9 (8-16); BILIRUBIN,TOTAL 0.6 mg/dl (0.2-1.0); CALCIUM 8.8 mg/dl (8.4-10.2); CO2 21 mmol/L (22-28); CREATININE 1.2 mg/dl (0.6-1.3); GLUCOSE,RANDOM 108 mg/dl (74-106); SGOT/AST 21 U/L (10-42); SGPT/ALT 11 U/L (10-40); TOT PROT 6.5 g/dl (6.4-8.3)
[2017-01-26 12:58] LABS: URINE APPEARANCE Clear; URINE BILIRUBIN Negative (NEGATIVE); URINE BLOOD Negative (NEGATIVE); URINE GLUCOSE (UA) Negative (NEGATIVE); URINE KETONE Negative (NEGATIVE); URINE LEUK ESTERASE Negative (NEGATIVE); URINE NITRITE Negative (NEGATIVE); URINE PROTEIN Negative (NEGATIVE); URINE UROBILINOGEN 0.2 (0.2-1.0)
[2017-01-26 12:59] LABS: URINE COLOR YELLOW
--- NOTE | 2017-01-26 13:12 | HP ---
CHIEF COMPLAINT: Left foot wound PCP: Blanka Brooks Barry, [place] HISTORY OF PRESENT ILLNESS: This is a 61 year old female with a past medical history significant for DM, CAD , HTN, HLD who presents with non healing wound to left foot. Wound initially began in October of this year with a splinter that became infected. She underwent surgical debridement on 11/10/16 and was admitted for 5 days of IV antibiotics. She has been following as an outpatient with Dr. Moscoso who evaluated her today and sent her for admisison. She had an MRI done on 01/21/17 which revealed likely osteomyelitis. Pt reports increased pain to foot. ER course was notable for: (1) WBC 5.8 Recent Travel: pt denies PAST MEDICAL HISTORY: HTN HLD CAD s/p 2 stents DM (resolved s/p gastric bypass) chronic left foot wound PAST SURGICAL HISTORY: Gastric bypass L tibia ORIF 2011 R TKR Social History: Smoking: quit 2007 Alcohol: occasionally when company over Drugs: pt denies Allergies Sulfa (Sulfonamide Antibiotics) Allergy (Verified 11/10/16 01:29) HOME MEDICATIONS: 3 Medication Instructions Recorded Olmesartan Medoxomil [Benicar] 20 mg PO AM tablet 01/17/16 Aspirin [ASA -] 81 mg PO DAILY 02/13/16 Cholecalciferol (Vitamin D3) 2,000 unit PO DAILY 03/26/16 [D3-2000] Ibuprofen [Motrin -] 600 mg PO TID #21 tablet 11/03/16 Polyethylene Glycol 3350 [Miralax 17 gm PO DAILY bottle 11/13/16 119 gm Btl -] Collagenase Clostridium Hist. 90 gm TP DAILY #90 oint...g. 01/05/17 [Santyl] Mupirocin Ointment [Bactroban] 1 applic TP BID #1 tube 01/05/17 REVIEW OF SYSTEMS CONSTITUTIONAL: Absent: fever, chills, diaphoresis, generalized weakness, malaise, loss of appetite, weight change HEENT: Absent: rhinorrhea, nasal congestion, throat pain, throat swelling, difficulty swallowing, mouth swelling, ear pain, eye pain, visual changes CARDIOVASCULAR: Absent: chest pain, syncope, palpitations, irregular heart rate, lightheadedness , peripheral edema RESPIRATORY: Absent: cough, shortness of breath, dyspnea with exertion, orthopnea, wheezing, stridor, hemoptysis GASTROINTESTINAL: Absent: abdominal pain, abdominal distension, nausea, vomiting, diarrhea, constipation, melena, hematochezia GENITOURINARY: Absent: dysuria, frequency, urgency, hesitancy, hematuria, flank pain, genital pain MUSCULOSKELETAL: Present: Left foot pain Absent: myalgia, arthralgia, joint swelling, back pain, neck pain SKIN: present: wound left foot Absent: rash, itching, pallor HEMATOLOGIC/IMMUNOLOGIC: Absent: easy bleeding, easy bruising, lymphadenopathy, frequent infections ENDOCRINE: Absent: unexplained weight gain, unexplained weight loss, heat intolerance, cold intolerance NEUROLOGIC: Absent: headache, focal weakness or paresthesias, dizziness, unsteady gait, seizure, mental status changes, bladder or bowel incontinence PSYCHIATRIC: Absent: anxiety, depression, suicidal or homicidal ideation, hallucinations. PHYSICAL EXAMINATION Vital Signs - 24 hr 3 01/26/17 11:20 Temperature 99.5 F Pulse Rate 85 Respiratory 18 Rate Blood Pressure 154/80 O2 Sat by Pulse 100 Oximetry (%) GENERAL: Awake, alert, and fully oriented, in no acute distress. HEAD: Normal with no signs of trauma. EYES: Pupils equal, round and reactive to light, extraocular movements intact, sclera anicteric, conjunctiva clear. No lid lag. EARS, NOSE, THROAT: Ears normal, nares patent, oropharynx clear without exudates. Moist mucous membranes. NECK: Normal range of motion, supple without lymphadenopathy, JVD, or masses. LUNGS: Breath sounds equal, clear to auscultation bilaterally. No wheezes, and no crackles. No accessory muscle use. HEART: Regular rate and rhythm, normal S1 and S2, holosystolic murmur, 2/6, 2nd ICS RSB, no rub or gallop. ABDOMEN: Soft, nontender, not distended, normoactive bowel sounds, no guarding, no rebound, no masses. No hepatomegaly or splenomegaly. MUSCULOSKELETAL: Normal range of motion at all joints. No bony deformities or tenderness. No CVA tenderness. UPPER EXTREMITIES: 2+ pulses, warm. No cyanosis. No clubbing. No peripheral edema. LOWER EXTREMITIES: diminished pedal pulses, warm, well-perfused. No calf tenderness. mild periwound edema noted left foot with erythema, no peripheral edema R foot. NEUROLOGICAL: Cranial nerves II-XII intact. Normal speech. Normal gait. PSYCHIATRIC: Cooperative. Good eye contact. Appropriate mood and affect. SKIN: Warm, dry, normal turgor, no rashes or lesions noted, normal capillary refill. left foot wound measures 2.8 x 2.1 x 0.2cm, wound bed yellow, slough, surrounding skin macerated, no lymphangitic streaking, DC serous Laboratory Results - last 24 hr 3 01/26/17 01/26/17 01/26/17 12:17 12:17 12:50 WBC 5.8 D RBC 3.68 Hgb 10.3 L Hct 31.5 L MCV 85.7 MCH 27.9 MCHC 32.6 RDW 15.1 D Plt Count 161 MPV 8.5 Neutrophils % 48.2 D Lymphocytes % 43.4 H D Monocytes % 5.1 D Eosinophils % 1.7 Basophils % 1.6 Sodium 137 Potassium 5.1 Chloride 107 Carbon Dioxide 21 L Anion Gap 9 BUN 36 H Creatinine 1.2 Creat Clearance w eGFR 45.37 Random Glucose 108 H Calcium 8.8 Total Bilirubin 0.6 D AST 21 D ALT 11 Alkaline Phosphatase 102 H Total Protein 6.5 Albumin 3.5 Urine Color Yellow Urine Appearance Clear Urine pH 5.0 Ur Specific [place] 1.015 Urine Protein Negative Urine Glucose (UA) Negative Urine Ketones Negative Urine Blood Negative Urine Nitrite Negative Urine Bilirubin Negative Urine Urobilinogen 0.2 Ur Leukocyte Esterase Negative ECG NSR, vent rate 74, QTC 388 moderate voltage criteria for LVH no acute ST/T changes noted CXR without obvious infiltrates or effusions, official read pending ASSESSMENT/PLAN: 61yF with PMH HTN, HLD, CAD, DM presented to the ED with chronic wound left foot. She is being admitted for further treatment. Osteomyelitis Left foot - DW Dr. Valentin, demetrio and vancomycin x 6 weeks - cont santyl/bactroban dressing daily - podiatry consult - pt requesting own hydrocodone/acetaminophen. But refuses to give nurses her medication to be kept in pyxis. Pt agrees to try oxycodone. HTN - cont home medications HLD - zocor changed to formulary lipitor while inpatient GERD - cont home protonix DVT PPX - heparin 5000u TID FEN - tolerating po - BMP in am - low sodium diet as tolerated Dispo: Pt currently requires inpatient management of her emergent condition. Visit type - Emergency Visit Emergency Visit: Yes ED Registration Date: 01/26/17 Care time: The patient presented to the Emergency Department on the above date and was hospitalized for further evaluation of their emergent condition. - New Patient This patient is new to me today: Yes Date on this admission: 01/26/17 - Critical Care Critical Care patient: No
[2017-01-26] MEDS: PIPERACILLIN/TAZOB 3.375 GM 50 ML IVPB SCH ×2 (13:42→18:25)
[2017-01-26] MEDS: VANCOMYCIN 1 GRAM (PRE-DOCKED) 250 ML IVPB SCH (14:14)
[2017-01-26] MEDS: HEPARIN NA (PORCINE) 5,000 UNITS/ML 1ML VIAL SQ SCH ×2 (14:33→21:21)
[2017-01-26] MEDS ORDERED: ONDANSETRON *ODT* 4 MG TABLET SL PRN (14:41)
[2017-01-26] MEDS: COLLAGENASE CLOSTRIDIUM HIST. 30 GRAMS TUBE TP SCH (14:46)
[2017-01-26] MEDS: MUPIROCIN 2% TOPICAL OINTMENT 22 GM TUBE TP SCH (14:47)
[2017-01-26] MEDS ORDERED: PT OWN MED DRAWER 7, Y5N ONE (18:13)
[2017-01-26] MEDS ORDERED: ACETAMINOPHEN 325 MG TABLET (FP) PO STA (18:39)
[2017-01-27] MEDS: VANCOMYCIN 1 GRAM (PRE-DOCKED) 250 ML IVPB SCH ×2 (01:18→13:40)
[2017-01-27] MEDS: PIPERACILLIN/TAZOB 3.375 GM 50 ML IVPB SCH ×3 (02:38→18:01)
[2017-01-27] MEDS ORDERED: PT OWN MED DRAWER 7, Y5N ONE ×3 (02:40→17:09)
[2017-01-27] MEDS: amLODIPine BESYLATE 10 MG TABLET (FP) PO SCH (06:28)
[2017-01-27] MEDS: VALSARTAN 160 MG TABLET (UD) PO SCH (06:28)
[2017-01-27] MEDS: HEPARIN NA (PORCINE) 5,000 UNITS/ML 1ML VIAL SQ SCH ×3 (06:28→21:25)
[2017-01-27] MEDS ORDERED: PATIENT'S OWN MEDICATION (NON-FORMULARY) (Olmesartan Medoxomil [Benicar] 20 MG) PO SCH (07:00)
[2017-01-27 08:50] LABS: BASOPHIL 0.6 % (0-2.0); EOSINOPHIL 2.3 % (0-4.5); MCH 27.9 pg (25.7-33.7); MCHC 32.8 g/dl (32.0-36.0); MEAN CELL VOLUME 85.2 fl (80-96); MEAN PLT VOLUME 8.8 fl (7.5-11.1); NEUTROPHILS 49.6 % (42.8-82.8); PLATELET COUNT 155 K/MM3 (134-434); RDW 14.9 % (11.6-15.6)
[2017-01-27 08:59] LABS: ANION GAP 10 (8-16); CALCIUM 8.2 mg/dl (8.4-10.2); CO2 20 mmol/L (22-28); CREATININE 1.4 mg/dl (0.6-1.3); GLUCOSE,RANDOM 150 mg/dl (74-106); MAGNESIUM 1.4 mg/dL (1.8-2.4); PHOSPHOROUS 3.2 mg/dl (2.5-4.6)
[2017-01-27] MEDS: PANTOPRAZOLE 40 MG TABLET (FP) PO SCH (09:22)
[2017-01-27] MEDS: CHOLECALCIFEROL (VITAMIN D3) 1,000 UNIT TABLET (FP) PO SCH (09:22)
[2017-01-27] MEDS: METOPROLOL SUCCINATE 100 MG TAB.SR.24H (FP) PO SCH (09:22)
[2017-01-27] MEDS: COLLAGENASE CLOSTRIDIUM HIST. 30 GRAMS TUBE TP SCH (09:23)
[2017-01-27] MEDS: ASPIRIN 81 MG CHEWABLE TABLETS PO SCH (09:23)
[2017-01-27] MEDS: POLYETHYLENE GLYCOL 3350 119 GM BTL PO SCH (09:23)
[2017-01-27] MEDS: MUPIROCIN 2% TOPICAL OINTMENT 22 GM TUBE TP SCH (09:23)
[2017-01-27] MEDS ORDERED: PICC LINE 8 ML FLUSH PROTOCOL IVPUSH PRN (09:27)
--- NOTE | 2017-01-27 09:27 | PN ---
Physical Exam: SUBJECTIVE: Patient seen and examined. c/o left ankle pain on exam. No other complaints. Reports that she tolerated percocet well. OBJECTIVE: Vital Signs - 24 hr 3 01/26/17 01/26/17 01/26/17 11:20 14:00 17:39 Temperature 99.5 F 98.4 F 99.3 F Pulse Rate 85 62 Respiratory 18 18 Rate Blood Pressure 154/80 178/50 O2 Sat by Pulse 100 100 Oximetry (%) 3 01/26/17 01/26/17 01/26/17 01/27/17 01/27/17 18:10 19:20 22:54 01:00 06:00 Temperature 102.7 F H 101.2 F H 100.3 F H 100 F H 99.9 F H Pulse Rate 89 78 Respiratory 18 19 Rate Blood Pressure 119/51 125/51 O2 Sat by Pulse 97 98 Oximetry (%) GENERAL: The patient is awake, alert, and fully oriented, in no acute distress. HEAD: Normal with no signs of trauma. EYES: PERRL, extraocular movements intact, sclera anicteric, conjunctiva clear. No ptosis. ENT: Ears normal, nares patent, oropharynx clear without exudates, moist mucous membranes. NECK: Trachea midline, full range of motion, supple. LUNGS: Breath sounds equal, clear to auscultation bilaterally, no wheezes, no crackles, no accessory muscle use. HEART: Regular rate and rhythm, S1, S2 without rub or gallop. holosystolic murmur, 2/6, 2nd ICS RSB, radiates to carotids ABDOMEN: Soft, nontender, nondistended, normoactive bowel sounds, no guarding, no rebound, no hepatosplenomegaly, no masses. EXTREMITIES: 2+ pulses, warm, well-perfused, no edema. NEUROLOGICAL: Cranial nerves II through XII grossly intact. Normal speech, gait not observed. PSYCH: Normal mood, normal affect. SKIN: Warm, dry, normal turgor, no rashes or lesions noted. Left foot with ulceration to webbing between 1st and 2nd toe, + erythema to surrounding skin including toes. no lymphangitic streaking, drainage serous Laboratory Results - last 24 hr 3 01/27/17 01/27/17 08:00 08:00 WBC 5.0 RBC 3.49 L Hgb 9.8 L Hct 29.8 L MCV 85.2 MCH 27.9 MCHC 32.8 RDW 14.9 Plt Count 155 MPV 8.8 Neutrophils % 49.6 Lymphocytes % 42.0 H Monocytes % 5.5 Eosinophils % 2.3 Basophils % 0.6 Sodium 133 L Potassium 4.3 Chloride 103 Carbon Dioxide 20 L Anion Gap 10 BUN 36 H Creatinine 1.4 H Random Glucose 150 H D Calcium 8.2 L Phosphorus 3.2 Magnesium 1.4 L D Active Medications 3 Generic Name Dose Route Start Last Admin Trade Name Freq PRN Reason Stop Dose Admin Amlodipine Besylate 10 mg 01/27/17 07:00 01/27/17 06:28 Norvasc - PO 10 mg AM OLGA LIDIA Administration Aspirin 81 mg 01/27/17 10:00 01/27/17 09:23 Asa - PO 81 mg DAILY OLGA LIDIA Administration Atorvastatin Calcium 10 mg 01/27/17 22:00 Lipitor - PO HS OLGA LIDIA Cholecalciferol 2,000 unit 01/27/17 10:00 01/27/17 09:22 Vitamin D3 - PO 2,000 unit DAILY OLGA LIDIA Administration Collagenase 0 applic 01/26/17 14:15 01/27/17 09:23 Santyl - TP 1 tube DAILY OLGA LIDIA Administration Heparin Sodium (Porcine) 5,000 unit 01/26/17 14:00 01/27/17 06:28 Heparin - SQ 5,000 unit Q8H OLGA LIDIA Administration Vancomycin HCl 250 mls @ 166.667 mls/hr 01/26/17 14:00 01/27/17 01:18 Vancomycin (Pre-Docked) IVPB 166.667 mls/hr BID@0200,1400 OLGA LIDIA Administration Protocol Piperacillin/Tazobactam/Dextrose 50 mls @ 100 mls/hr 01/26/17 13:30 01/27/17 09 :23 Zosyn 3.375gm Ivpb (Premix) IVPB 100 mls/hr Q8H-IV OLGA LIDIA Administration Protocol Metoprolol Succinate 100 mg 01/27/17 10:00 01/27/17 09:22 Toprol Xl - PO 100 mg DAILY OLGA LIDIA Administration Mupirocin 1 applic 01/26/17 14:45 01/27/17 09:23 Bactroban 2% Ointment - TP 1 tube DAILY OLGA LIDIA Administration Ondansetron HCl 4 mg 01/26/17 14:41 Zofran Odt - SL Q6H PRN NAUSEA AND/OR VOMITING Oxycodone/Acetaminophen 1 combo 01/26/17 14:40 01/26/17 20:17 Percocet 5/325 - PO 1 combo Q4H PRN Administration PAIN Pantoprazole Sodium 40 mg 01/27/17 10:00 01/27/17 09:22 Protonix - PO 40 mg DAILY OLGA LIDIA Administration Polyethylene Glycol 17 gm 01/27/17 10:00 01/27/17 09:23 Miralax (For Daily Use) - PO 17 gm DAILY OLGA LIDIA Administration Valsartan 160 mg 01/27/17 07:00 01/27/17 06:28 Diovan - PO 160 mg AM OLGA LIDIA Administration ASSESSMENT/PLAN: 61yF with PMH HTN, HLD, CAD, DM presented to the ED with chronic wound left foot. She is being admitted for further treatment. Osteomyelitis Left foot - ID consult appreciated - con vanc/zosyn - cont santyl/bactroban dressing daily - podiatry consult - oxycodone for pain Heart murmur - pt states she has had for some time. Has an appointment next week with her saw grinder for f/u and probable echo. Cont outpatient workup HTN - cont home medications HLD - zocor changed to formulary lipitor while inpatient GERD - cont home protonix DVT PPX - heparin 5000u TID FEN - tolerating po - BMP in am - low sodium diet as tolerated Dispo: Pt currently requires inpatient management of her emergent condition. Visit type - Emergency Visit Emergency Visit: Yes ED Registration Date: 01/26/17 Care time: The patient presented to the Emergency Department on the above date and was hospitalized for further evaluation of their emergent condition. - New Patient This patient is new to me today: No - Critical Care Critical Care patient: No
--- NOTE | 2017-01-27 09:36 | PN ---
Progress Note (short form) - Note Progress Note: ID Consult dictated Infected non-healing L foot wound Chronic osteomyelitis + Wound c/s MRSA/ pseudomonas Fever Check ESR CRP Vancomycin/ Zosyn PICC for outpatient antibiotics
[2017-01-27] MEDS ORDERED: [UNRECOGNIZED DRUG - OTHER] PO SCH (10:00)
[2017-01-27] MEDS ORDERED: PATIENT'S OWN MEDICATION (NON-FORMULARY) (Simvastatin [Simvastatin] 20 MG) PO SCH (10:00)
[2017-01-27] MEDS ORDERED: CHOLECALCIFEROL PO SCH (10:00)
[2017-01-27 10:04] LABS: ERYTHROCYTE SEDIMENTATION RATE 80 mm/hr (0-30)
--- NOTE | 2017-01-27 10:25 | CONS ---
DATE OF CONSULTATION: DATE OF DICTATION: 01/27/2017 The patient is a 61-year-old diet-controlled diabetic who is evaluated for chronic osteomyelitis of the left foot. Her foot problems began in late October 2016. She developed pain, swelling, and erythema of the left foot adjacent to the great toe. She had been seen in the emergency room and was diagnosed with gouty arthritis versus cellulitis. She was treated with nonsteroidals and clindamycin. Despite that treatment she developed progressively worsening pain and swelling. She developed a blister between the 1st and 2nd toes which was lanced. She was discharged on Augmentin. She continued to have pain to the point where she was unable to ambulate. She developed worsening erythema and warmth and was admitted to the hospital. The patient was seen in consultation by Podiatry, where an incision and drainage was performed. She was found to have a foreign body in the left foot. She was treated with a course of IV antibiotic therapy and was discharged home on oral. Post discharge she had a nonhealing wound for which she was seen in the wound care center. She had undergone debridements and at one point had a VAC device placed on the foot. Wound cultures from December grew MRSA and pseudomonas. She is now admitted for treatment of infected foot wound and osteomyelitis. MRI was performed as an outpatient and showed osteomyelitis of the metatarsal. The report is not available as it was done outside this facility. She denies any pain in the toes; however, she does complain of ankle pain. She denies any fever or chills; however, she was noted to have fever overnight. PAST MEDICAL HISTORY: Positive for diet-controlled diabetes, hypertension, coronary artery disease, bladder cancer. PAST SURGICAL HISTORY: Status post coronary artery stent, gastric bypass, right knee replacement, and left tibial plateau fracture. ALLERGIES: SULFA. MEDICATIONS: Benicar, aspirin, Motrin. SOCIAL HISTORY: She is a former smoker. She lives at home. REVIEW OF SYSTEMS: Neurologic: No loss of consciousness, seizure activity, focal weakness. Cardiac: Negative chest pain or palpitations. Respiratory: Negative cough or sputum production. Gastrointestinal: Status post gastric bypass. Genitourinary: Negative for urinary tract infection. LABORATORY DATA: White count 5.8, hematocrit 31.5, platelet count 161. BUN 36, creatinine 1.2. Urinalysis negative. Blood cultures are pending. PHYSICAL EXAMINATION: General: She is awake and alert. She is not acutely toxic appearing. Vital Signs: T-max 102.7, blood pressure 125/51, pulse 78, regular. Respirations at 19 per minute. HEENT: Sclerae are anicteric. Cardiovascular: Heart sounds S1, S2. Lungs: Clear bilaterally. No rhonchi, rales, or wheezing. Abdomen: Soft. No tenderness elicited. No mass, rebound, or rigidity. Extremities: Left lower extremity 1+. There is an ulceration present in the web space between the great and the 2nd toe. There is no purulent drainage noted. There is erythema present at the ulcer, extending to the base of the toes. There is no lymphangitic streaking, no crepitus or fluctuance. IMPRESSION: 1. Infected nonhealing left foot ulcer. 2. Chronic osteomyelitis of the left foot. 3. Positive wound culture for methicillin-resistant Staphylococcus aureus and pseudomonas. 4. Fever. 5. Diet-controlled diabetes. Blood cultures have been obtained. Check C-reactive protein and erythrocyte sedimentation rate. Vancomycin 1 g IV piggyback every 12 hours, Zosyn 3.375 g IV piggyback every 8 hours. Surgical followup. Will follow. Thank you for the kind referral. HANNAH CARVER M.D. [id number]
--- NOTE | 2017-01-27 12:11 | CONSULT ---
Consult - text type - Consultation Consultation Note: Podiatry Consultation: 61 year old NIDDM F well known to me from wound care, sent for admission for treatment of osteomyelitis L foot. S/p incision and drainage of abscess L 1st interspace back in November 2016. Patient being treated every week in wound healing center, she noted increased redness/swelling/pain to the foot over the past few weeks. MRI obtained demonstrates osteomyelitis 2nd proximal phalanx and 2nd metatarsal head. She does have low grade fever currently, otherwise VSS. PMHx: NIDDM, HTN, HLP, CAD Meds: noted ALL: sulfa TESSA: L foot: first interspace diabetic ulcer with mixed fibrogranular wound base, regular borders, probes deep, serous drainage present, no purulence, no fluctuance, (+) periwound erythema, no streaking cellulitis, no signs of acute infection. Moderate tenderness to palpation. WBC: 5.0 ESR: 80 Blood Cx: pending MRI L foot: (+) bone marrow edema 2nd metatarsal head and 2nd proximal phalanx Imp: 61 year old NIDDM F with L first interspace diabetic ulcer, osteomyelitis 1. Excisional debridement performed at bedside to level of subcutaneous tissue using sterile scissors. Santyl applied with DSD. Patient tolerated procedure well. 2. IV abx per Infectious Disease 3. For tunnelled catheter for IV treatment. 4. Glycemic control. 5. Pain control. 6. Will closely follow in wound healing center. Elizabeth Moscoso DPM
[2017-01-27] MEDS ORDERED: REFRIGERATED ANITBIOTICS ONE (17:48)
[2017-01-27] MEDS: ATORVASTATIN CA 10 MG TABLET (FP) PO SCH ×2 (21:25→21:36)
[2017-01-27] MEDS ORDERED: MAGNESIUM SULF 50% (8.12 MEQ/2 ML-1 GM VIAL) IVPB ONE (22:29)
[2017-01-27 23:18] LABS: C-REACTIVE PROTEIN 5.6 MG/DL (0.00-0.3)
[2017-01-28] MEDS: VANCOMYCIN 1 GRAM (PRE-DOCKED) 250 ML IVPB SCH ×2 (01:21→15:37)
[2017-01-28] MEDS: PIPERACILLIN/TAZOB 3.375 GM 50 ML IVPB SCH ×2 (01:22→10:04)
[2017-01-28] MEDS: HEPARIN NA (PORCINE) 5,000 UNITS/ML 1ML VIAL SQ SCH ×2 (06:31→15:37)
[2017-01-28] MEDS: amLODIPine BESYLATE 10 MG TABLET (FP) PO SCH (06:31)
[2017-01-28] MEDS: VALSARTAN 160 MG TABLET (UD) PO SCH (06:31)
[2017-01-28 08:55] LABS: ANION GAP 8 (8-16); CALCIUM 8.4 mg/dl (8.4-10.2); CO2 22 mmol/L (22-28); CREATININE 1.3 mg/dl (0.6-1.3); GLUCOSE,RANDOM 123 mg/dl (74-106); MAGNESIUM 2.1 mg/dL (1.8-2.4)
[2017-01-28] MEDS: PANTOPRAZOLE 40 MG TABLET (FP) PO SCH (10:01)
[2017-01-28] MEDS: CHOLECALCIFEROL (VITAMIN D3) 1,000 UNIT TABLET (FP) PO SCH (10:02)
[2017-01-28] MEDS: METOPROLOL SUCCINATE 100 MG TAB.SR.24H (FP) PO SCH (10:02)
[2017-01-28] MEDS: COLLAGENASE CLOSTRIDIUM HIST. 30 GRAMS TUBE TP SCH (10:03)
[2017-01-28] MEDS: ASPIRIN 81 MG CHEWABLE TABLETS PO SCH (10:03)
[2017-01-28] MEDS: POLYETHYLENE GLYCOL 3350 119 GM BTL PO SCH (10:03)
[2017-01-28] MEDS: MUPIROCIN 2% TOPICAL OINTMENT 22 GM TUBE TP SCH (10:03)
--- NOTE | 2017-01-28 11:33 | DS ---
Physical Exam: HOSPITAL COURSE: Date of Admission:01/26/17 Date of Discharge: 01/28/17 Patient was not seen or examined by this provider. This discharge summary is based on chart review. 61yF with PMH HTN, HLD, CAD, DM presented to the ED with chronic wound left foot. Osteomyelitis Left foot --treated with vanc and zosyn --per ID, discharge on Vanc IV 1250mg daily x 6 weeks --tunneled catheter placed by IR --continue santyl/bactroban dressing daily --f/u wound clinic Heart murmur - pt states she has had for some time. Has an appointment next week with her machine bunch maker for f/u and probable echo. Cont outpatient workup HTN - cont home medications HLD - zocor changed to formulary lipitor while inpatient GERD - cont home protonix Minutes to complete discharge: 35 Discharge Summary Reason For Visit: OSTEOMYELITIS Current Active Problems Osteomyelitis (Acute) Condition: Improved - Instructions Referrals: Aravind Harvey MD [Primary Care Provider] - Disposition: HOME - Home Medications Comprehensive Discharge Medication List: Ambulatory Orders Olmesartan Medoxomil [Benicar] 20 mg PO AM tablet 01/17/16 Aspirin [ASA -] 81 mg PO DAILY 02/13/16 Cholecalciferol (Vitamin D3) [D3-2000] 2,000 unit PO DAILY 03/26/16 Ibuprofen [Motrin -] 600 mg PO TID #21 tablet 11/03/16 Polyethylene Glycol 3350 [Miralax 119 gm Btl -] 17 gm PO DAILY bottle 11/13/16 Collagenase Clostridium Hist. [Santyl] 90 gm TP DAILY #90 oint...g. 01/05/17 Mupirocin Ointment [Bactroban] 1 applic TP BID #1 tube 01/05/17 This patient is new to me today: Yes Date on this admission: 01/28/17 Emergency Visit: Yes ED Registration Date: 01/26/17 Care time: The patient presented to the Emergency Department on the above date and was hospitalized for further evaluation of their emergent condition. Critical Care patient: No - Discharge Referral Referred to [facility] Med P.C.: Yes Physician Referral: Aravind Harvey MD (Int Med)
[2017-01-28 11:53] VITALS: BP 148/69; PULSE 73; TEMP 98
== END 2017-01-28 18:13 | disposition home or self-care (01) | DRG 623 ==
LOC: FER 11:19 → FM/S 12:57 → JSAMEDAYSX 01-28 11:50 → FM/S 01-28 15:23
PROVIDERS: ADMIT Internal Medicine; ATTEND Nurse Practitioner Acute Care
PROC: 0JBR0ZZ Excision of Left Foot Subcutaneous Tissue and Fascia, Open Approach (ICD-10-PCS; principal; 2017-01-27)
DX: E11.69 Type 2 diabetes mellitus with other specified complication (principal); M86.172 Other acute osteomyelitis, left ankle and foot; L97.528 Non-pressure chronic ulcer of other part of left foot with other specified severity; E11.621 Type 2 diabetes mellitus with foot ulcer; B96.5 Pseudomonas (aeruginosa) (mallei) (pseudomallei) as the cause of diseases classified elsewhere; B95.62 Methicillin resistant Staphylococcus aureus infection as the cause of diseases classified elsewhere; I25.10 Atherosclerotic heart disease of native coronary artery without angina pectoris; Z95.5 Presence of coronary angioplasty implant and graft; Z85.51 Personal history of malignant neoplasm of bladder; D50.9 Iron deficiency anemia, unspecified; I10 Essential (primary) hypertension; Z98.84 Bariatric surgery status; Z96.651 Presence of right artificial knee joint; E78.5 Hyperlipidemia, unspecified; R01.1 Cardiac murmur, unspecified; K21.9 Gastro-esophageal reflux disease without esophagitis
CPT/HCPCS: 36415; 36558; 71010-TC; 77001-TC; 80048; 80053; 81003; 83735; 84100; 85025; 85651; 86140; 87040; 99283-25; C1751; G0463-25; G0480; J1644

== ENCOUNTER 2017-03-18 09:16 | Day surgery (SDC) | payer OTHER, BC ==
[2017-03-17 17:17] VITALS: BMI 35.7
[~2017-03-18 09:16] MED LIST: LIDOCAINE HCL 1%, 10 MG/ML (20ML VIAL) INF ONE
[2017-03-18] MEDS ORDERED: PROPOFOL 20 ML ONE ×2 (10:16)
[2017-03-18] MEDS ORDERED: MIDAZOLAM HCL 2 MG/2 ML SINGLE DOSE VIAL ONE (10:17)
[2017-03-18] MEDS ORDERED: HEPARIN NA (PORCINE) 5,000 UNITS/ML 1ML VIAL ONE (10:19)
[2017-03-18] MEDS ORDERED: LIDOCAINE HCL 1%, 10 MG/ML (20ML VIAL) INF ONE ×2 (10:41)
[2017-03-18] MEDS ORDERED: ONDANSETRON 4 MG/2 ML VIAL IVPUSH PRN (11:28)
[2017-03-18] MEDS ORDERED: oxyCODONE HCL 5 MG TABLET PO PRN (11:28)
--- NOTE | 2017-03-18 11:29 | HP ---
Admitting History and Physical - Admission Chief Complaint: left foot ucler for 4 months. Limitations to Obtaining History: No Limitations - Smoking History Smoking history: Former smoker Have you smoked in the past 12 months: No Aproximately how many cigarettes per day: 30 If you are a former smoker, when did you quit?: 2007 - Alcohol/Substance Use Hx Alcohol Use: Yes (occasional) Home Medications - Allergies Allergies/Adverse Reactions: Allergies Allergy/AdvReac Type Severity Reaction Status Date / Time levofloxacin Allergy "DEVELOPED Verified 03/17/17 17:20 BLISTERS" Sulfa (Sulfonamide Allergy "DEVELOPED Verified 03/17/17 17:20 Antibiotics) A HIGH FEVER" - Home Medications Home Medications: Ambulatory Orders Olmesartan Medoxomil [Benicar] 20 mg PO DAILY tablet 01/17/16 Aspirin [ASA -] 81 mg PO DAILY 02/13/16 Cholecalciferol (Vitamin D3) [D3-2000] 4,000 unit PO DAILY 03/26/16 Vancomycin 1 Gram (Pre-Docked) [Vancomycin (Pre-Docked)] 1,250 mg IVPB DAILY # 42 bag 01/28/17 Ascorbate Calcium [Vitamin C] 500 mg PO DAILY 03/17/17 Hydrochlorothiazide [Hctz -] 25 mg PO DAILY 03/17/17 L.acidoph,Paracasei, B.lactis [Probiotic] 1 each PO DAILY 03/17/17 Metoprolol Succinate [Toprol Xl] 100 mg PO DAILY 03/17/17 Zinc 50 mg PO DAILY 03/17/17 Review of Systems - Review of Systems Constitutional: reports: No Symptoms Eyes: reports: No Symptoms HENT: reports: No Symptoms Neck: reports: No Symptoms Cardiovascular: reports: No Symptoms Respiratory: reports: No Symptoms Gastrointestinal: reports: No Symptoms Genitourinary: reports: No Symptoms Breasts: reports: No Symptoms Reported Musculoskeletal: reports: No Symptoms Integumentary: reports: No Symptoms Neurological: reports: No Symptoms Endocrine: reports: No Symptoms Hematology/Lymphatic: reports: No Symptoms Psychiatric: reports: No Symptoms Physical Examination Vital Signs: Vital Signs Temperature 97.9 F 03/18/17 09:37 Pulse Rate 80 03/18/17 09:37 Respiratory Rate 18 03/18/17 09:37 Blood Pressure 148/70 03/18/17 09:37 O2 Sat by Pulse Oximetry (%) 100 03/18/17 09:39 Constitutional: Yes: Well Nourished Eyes: Yes: WNL HENT: Yes: WNL Neck: Yes: WNL Cardiovascular: Yes: WNL Respiratory: Yes: WNL Gastrointestinal: Yes: WNL Extremities: Yes: WNL Edema: No Peripheral Pulses WNL: No Integumentary: Yes: WNL ...Motor Strength: WNL Psychiatric: Yes: WNL Problem List - Problems (1) Ulcer of foot due to diabetes Code(s): E11.621 - TYPE 2 DIABETES MELLITUS WITH FOOT ULCER; L97.509 - NON- PRESSURE CHRONIC ULCER OTH PRT UNSP FOOT W UNSP SEVERITY (2) Diabetes mellitus Code(s): E11.9 - TYPE 2 DIABETES MELLITUS WITHOUT COMPLICATIONS Assessment/Plan Left foot ulcer 1. For diagnostic angio today
--- NOTE | 2017-03-18 11:29 | OP ---
Operative Note - Note: Operative Date: 03/18/17 Pre-Operative Diagnosis: Left foot ulcer Operation: Aortogram, LLE angiogram Post-Operative Diagnosis: Same as Pre-op Surgeon: Abdi Gann Anesthesia: Fractional Estimated Blood Loss (mls): 20 Operative Report Dictated: Yes
[2017-03-18] MEDS ORDERED: LACTATED RINGERS SOLUTION 1,000 ML IV SCH (11:30)
[2017-03-18 14:44] VITALS: BP 160/61; PULSE 75; TEMP 98.4
--- NOTE | 2017-03-19 09:33 | OP ---
DATE OF OPERATION: 03/18/2017 PREOPERATIVE DIAGNOSIS: Left foot ulcer. POSTOPERATIVE DIAGNOSIS: Left foot ulcer. PROCEDURE: Aortogram, left lower extremity angiogram. SURGEON: Abdi Clement DO ANESTHESIA: Fractional. BLOOD LOSS: 20 mL INDICATION FOR PROCEDURE: The patient is a 61-year-old female who has a left foot ulcer between the 1st and 2nd web spaces, that has been there since November of 2016. She had a preoperative ultrasound showing that she has tibial disease, and it was decided that she should get an angiogram. Patient came in to Ambulatory Surgery. The patient was consented for the procedure, understanding all risks, benefits, and alternatives, and then was taken to the operating room. DESCRIPTION OF PROCEDURE: Once in the operating room suite, laid on the operating table in supine manner. The areas of the left and right groin were prepped and draped in a sterile surgical manner. We then injected 10 mL of lidocaine 1% over the right common femoral artery, and under ultrasound guidance, we were able to visualize the right common femoral artery and we were able to puncture it using a micropuncture needle. Micropuncture wire was inserted. Micropuncture sheath was inserted. An additional 5-Romansh sheath was inserted. We then placed a 0.035 floppy guidewire up into the aorta, followed by a Merit catheter. We then shot an aortogram via hand injection, showing that the aorta and the iliac arteries were without any disease. We then placed a 0.035 stiff guidewire up and over to the left common femoral artery, and we placed our Merit catheter there. We then shot an angiogram of the left lower extremity, showing that the common femoral artery, the profunda, and the SFA were patent. Popliteal artery was patent, but below the knee, she just has collateral circulation, and one collateral goes all the way down to the PT, which then feeds the peroneal and a portion of the DP in the foot. There was no anterior tibial artery that is existent. There is no peroneal artery present. At this point, we decided that there were not any blood vessels to perform angioplasty on or to open, and patient has 1-vessel runoff to the foot and we did not want to compromise the foot and close that artery. So, at this point, we decided no more intervention was needed. We brought our Merit catheter up and over, removed our sheath, and pressure was held over the right groin for 5 minutes. After this, there was no more bleeding. Area was wet and dried, and Dermabond was placed. Patient tolerated the procedure, no complications. Patient transferred to PACU in stable condition. ABDI CLEMENT DO [id number]
== END 2017-03-18 14:10 | disposition home or self-care (01) ==
LOC: JASU-SURG 09:16
PROVIDERS: ATTEND Surgery Vascular Surgery
PROC: B41DZZZ Fluoroscopy of Aorta and Bilateral Lower Extremity Arteries (ICD-10-PCS; principal; 2017-03-18 10:30)
DX: L97.529 Non-pressure chronic ulcer of other part of left foot with unspecified severity (principal); I70.202 Unspecified atherosclerosis of native arteries of extremities, left leg
CPT/HCPCS: 76000-TC; 94760; J1644

== ENCOUNTER → 2017-04-06 | Day surgery (SDC) | payer OTHER, BC ==
--- NOTE | 2017-04-06 10:52 | PN ---
Progress Note (short form) - Note Progress Note: [facility] F/U: Seen/evaluated at [facility]. Denies F/V/N/C/SOB/CP. She expresses concerns over starting hyperbaric oxygen therapy next week. She completes course of IV abx this week. Using santyl/regranex combo therapy. Notes ulcer is mostly unchanged. TESSA: L foot: first interspace diabetic ulcer with mostly fibrotic base, small areas of granulation tissue, no purulence, no fluctuance, mild periwound erythema, no ascending cellulitis, no signs of acute infection. Moderate tenderness to palpation. No ischemic changes exhibited to the foot. Imp: 61 year old DM F with L first interspace diabetic ulcer 1. Excisional debridement of L foot diabetic ulcer performed to the level of subcutaneous tissue using #15 blade scalpel. 2. Will continue with santyl/regranex combo therapy. 3. Patient to start HBO Tx after the new year. Will pre-medicate with anxiolytic medication. 4. Plan for tunnelled catheter removal since IV abx therapy completed. 5. F/u 1 week. Elizabeth Moscoso DPM
[2017-04-06 13:33] VITALS: PULSE 84; TEMP 97.9
== END | disposition home or self-care (01) ==
LOC: JRADIR 09:12
PROVIDERS: ATTEND Student in an Organized Health Care Education/Training Program
PROC: 05PY03Z Removal of Infusion Device from Upper Vein, Open Approach (ICD-10-PCS; principal; 2017-04-06)
DX: Z45.2 Encounter for adjustment and management of vascular access device (principal)
CPT/HCPCS: 11042; 36589; A6223

== ENCOUNTER 2017-10-29 07:16 | Day surgery (SDC) | payer OTHER, BC ==
[2017-10-29] MEDS ORDERED: IRON SUCROSE INJECTION 200 MG in SODIUM CHLORIDE 100 ML IVPB ONE (08:30)
[2017-10-29 11:07] VITALS: BP 115/56; PULSE 68; TEMP 98.1
== END 2017-10-29 09:15 | disposition home or self-care (01) ==
LOC: FINFUSION 07:16 → FM/S 07:16 → FINFUSION 09:15
PROVIDERS: ATTEND Internal Medicine Hematology & Oncology
PROC: 3E033GC Introduction of Other Therapeutic Substance into Peripheral Vein, Percutaneous Approach (ICD-10-PCS; principal; 2017-10-29)
DX: D50.9 Iron deficiency anemia, unspecified (principal)
CPT/HCPCS: 96365; J1756

== ENCOUNTER 2017-11-04 08:37 | Day surgery (SDC) | payer OTHER, BC ==
[2017-11-04] MEDS ORDERED: IRON SUCROSE INJECTION 200 MG in SODIUM CHLORIDE 100 ML IVPB ONE (09:15)
[2017-11-04 09:30] VITALS: BP 108/70; PULSE 78; TEMP 98.7
== END 2017-11-04 10:10 | disposition home or self-care (01) ==
LOC: FINFUSION 08:37 → FM/S 08:38 → FINFUSION 10:10
PROVIDERS: ATTEND Internal Medicine Hematology & Oncology
PROC: 3E033GC Introduction of Other Therapeutic Substance into Peripheral Vein, Percutaneous Approach (ICD-10-PCS; principal; 2017-11-04)
DX: D50.9 Iron deficiency anemia, unspecified (principal)
CPT/HCPCS: 96365; J1756

== ENCOUNTER 2018-02-25 08:18 | Day surgery (SDC) | payer OTHER, BC ==
[2018-02-26] MEDS ORDERED: IRON SUCROSE INJECTION 100 MG in SODIUM CHLORIDE 100 ML IVPB ONE (08:45)
[2018-02-26 10:36] VITALS: BP 152/71; PULSE 78; TEMP 98
== END 2018-02-26 10:15 | disposition home health service (06) ==
LOC: FINFUSION 08:18 → FM/S 02-26 08:19 → FINFUSION 02-26 10:15
PROVIDERS: ATTEND Internal Medicine Hematology & Oncology
PROC: 3E033GC Introduction of Other Therapeutic Substance into Peripheral Vein, Percutaneous Approach (ICD-10-PCS; principal; 2018-02-25)
DX: D50.9 Iron deficiency anemia, unspecified (principal)
CPT/HCPCS: 96365; J1756

== ENCOUNTER 2018-10-19 07:32 | Day surgery (SDC) | payer OTHER, BC ==
[2018-10-12 15:07] VITALS: BMI 31.8
[2018-10-19] MEDS: CIPROFLOXACIN 0.3% EYE DROPS 5 ML BOTTLE ONE ×3 (08:00→08:10)
[2018-10-19] MEDS: CYCLOPENTOLATE 2% OPHTH SOLN 2 ML BOTTLE ONE ×3 (08:00→08:10)
[2018-10-19] MEDS: TROPICAMIDE 1% OPHTH SOLN 15 ML BOTTLE ONE ×3 (08:00→08:10)
[2018-10-19] MEDS: PHENYLEPHRINE 2.5% OPHTH SOLN 15 ML BOTTLE ONE ×3 (08:00→08:10)
[2018-10-19] MEDS ORDERED: MIDAZOLAM HCL 2 MG/2 ML SINGLE DOSE VIAL ONE (08:54)
[2018-10-19] MEDS ORDERED: BSS (NA/CA/MG/K) BALANCED SALT SOLUTION OPHTH SOLN 15 ML BOTTLE ONE (08:59)
[2018-10-19] MEDS ORDERED: NEO/POLYMYX B SULF/DEXAMETH OPHTHALMIC 5ML BOTTLE ONE (08:59)
[2018-10-19] MEDS ORDERED: CARBACHOL 0.01% INTRA-OCULAR 1.5 ML VIAL ONE (08:59)
[2018-10-19] MEDS ORDERED: LIDOCAINE 1% P/F 10 MG/ML VIAL ONE (08:59)
[2018-10-19 09:50] VITALS: TEMP 98.3
[2018-10-19] MEDS ORDERED: ACETAMINOPHEN 325 MG TABLET (FP) PO PRN (09:50)
[2018-10-19 10:13] VITALS: BP 123/57; PULSE 64
--- NOTE | 2018-10-19 11:12 | OP ---
DATE OF OPERATION: 10/19/2018 OPERATIVE PROCEDURE: Lens Phacoemulsification with Posterior Chamber Intraocular Lens Placement Left Eye PREOPERATIVE DIAGNOSIS: Visually Significant Cataract of Left Eye POSTOPERATIVE DIAGNOSIS: Visually Significant Cataract of Left Eye SURGEON: Milton Rooney M.D. ANESTHESIA: MAC PROCEDURE: The patient was brought to the operating room and placed under monitored anesthesia care by Anesthesia. A drop of Tetracaine was then placed over the left eye. The patient was then prepped and draped in the usual sterile manner. A speculum was then placed over the left eye. The eye was then well irrigated with copious amounts of BSS (balanced salt solution). The operating microscope was then moved into position. A paracentesis was performed using a 15 degree blade. At this point 0.5 mL of 1% preservative-free lidocaine was injected into the anterior chamber. Amvisc plus was then injected into the anterior chamber. A clear corneal incision was then formed using a 2.2 mm keratome. A capsulorrhexis was then performed in a continuous circular fashion beginning with a cystotome, completed with an Utratas forceps. Hydrodissection was then performed using BSS on a cannula. The phaco probe was then introduced through the corneal wound and the cataract was removed using the phaco chop technique. Approximately 3 seconds of absolute phaco time was used. The remaining cortex was then removed using irrigation and aspiration with an I/A probe. The capsule was then filled with regular Amvisc and the capsule was noted to be intact. A previously selected foldable posterior chamber intraocular lens was then injected into the capsule through the corneal wound using a lens injector. It was then dialed into position using a Sinskey hook. The Amvisc was then removed using irrigation and aspiration. Miostat was then injected through the paracentesis to constrict the pupil. The paracentesis and corneal wound were then hydrated and noted to be water tight. A drop of Maxitrol was then placed over the eye. The speculum was removed and clear shield was taped over the eye. The patient tolerated the procedure well and there were no surgical complications. The patient was asked to follow up in my office the next day. MILTON ROONEY M.D. [id number]
== END 2018-10-19 10:15 | disposition home or self-care (01) ==
LOC: FASU 07:32
PROVIDERS: ATTEND Ophthalmology
PROC: 08RK3JZ Replacement of Left Lens with Synthetic Substitute, Percutaneous Approach (ICD-10-PCS; principal; 2018-10-19 09:23)
DX: H26.8 Other specified cataract (principal)

== ENCOUNTER 2018-12-26 09:16 | Day surgery (SDC) | payer OTHER, BC ==
[2018-12-26] MEDS ORDERED: IRON SUCROSE INJECTION 200 MG in SODIUM CHLORIDE 100 ML IVPB ONE (10:00)
[2018-12-26 10:08] VITALS: TEMP 98.9
[2018-12-26 10:51] VITALS: BP 180/61; PULSE 66
== END 2018-12-26 10:57 | disposition home or self-care (01) ==
LOC: FINFUSION 09:16 → FM/S 09:20 → FINFUSION 10:57
PROVIDERS: ATTEND Internal Medicine Hematology & Oncology
PROC: 3E033GC Introduction of Other Therapeutic Substance into Peripheral Vein, Percutaneous Approach (ICD-10-PCS; principal; 2018-12-26)
DX: D59.1 Other autoimmune hemolytic anemias (principal); D50.9 Iron deficiency anemia, unspecified
CPT/HCPCS: 96365; J1756

== ENCOUNTER 2018-12-29 10:33 | Day surgery (SDC) | payer OTHER, BC ==
[2018-12-29] MEDS ORDERED: IRON SUCROSE INJECTION 200 MG in SODIUM CHLORIDE 100 ML IVPB ONE (11:00)
[2018-12-29 11:53] VITALS: TEMP 97.9
[2018-12-29 13:36] VITALS: BP 156/72; PULSE 78
== END 2018-12-29 12:30 | disposition home or self-care (01) ==
LOC: FINFUSION 10:33 → FM/S 10:35 → FINFUSION 12:30
PROVIDERS: ATTEND Internal Medicine Hematology & Oncology
PROC: 3E033GC Introduction of Other Therapeutic Substance into Peripheral Vein, Percutaneous Approach (ICD-10-PCS; principal; 2018-12-29)
DX: D59.1 Other autoimmune hemolytic anemias (principal)
CPT/HCPCS: 96365; J1756

== ENCOUNTER 2019-01-11 06:58 | Day surgery (SDC) | payer OTHER, BC ==
[2019-01-11] MEDS ORDERED: LIDOCAINE 1% P/F 10 MG/ML VIAL ONE (07:34)
[2019-01-11] MEDS ORDERED: EPINEPHrine/PF 1 MG/1 ML (1:1,000) AMPULE ONE (07:34)
[2019-01-11] MEDS ORDERED: TETRACAINE 0.5% OPHTH SOLN 2 ML BOTTLE ONE (07:34)
[2019-01-11] MEDS ORDERED: BSS (NA/CA/MG/K) BALANCED SALT SOLUTION OPHTH SOLN 15 ML BOTTLE ONE (07:34)
[2019-01-11] MEDS ORDERED: CARBACHOL 0.01% INTRA-OCULAR 1.5 ML VIAL ONE (07:35)
[2019-01-11] MEDS: TROPICAMIDE 1% OPHTH SOLN 15 ML BOTTLE ONE ×3 (07:35→07:45)
[2019-01-11] MEDS: CIPROFLOXACIN 0.3% EYE DROPS 5 ML BOTTLE ONE ×3 (07:35→07:45)
[2019-01-11] MEDS: CYCLOPENTOLATE 2% OPHTH SOLN 2 ML BOTTLE ONE ×3 (07:35→07:45)
[2019-01-11] MEDS ORDERED: NEO/POLYMYX B SULF/DEXAMETH OPHTHALMIC 5ML BOTTLE ONE (07:35)
[2019-01-11] MEDS: PHENYLEPHRINE 2.5% OPHTH SOLN 15 ML BOTTLE ONE ×3 (07:35→07:45)
[2019-01-11 07:48] VITALS: BMI 31.3
[2019-01-11] MEDS ORDERED: MIDAZOLAM HCL 2 MG/2 ML SINGLE DOSE VIAL ONE ×2 (08:47→08:57)
--- NOTE | 2019-01-11 09:43 | OP ---
DATE OF OPERATION: 01/11/2019 OPERATIVE PROCEDURE: Lens phacoemulsification with posterior chamber intraocular lens placement right eye. PREOPERATIVE DIAGNOSIS: Visually significant cataract of right eye. POSTOPERATIVE DIAGNOSIS: Visually significant cataract of right eye. SURGEON: Milton Rooney M.D. ANESTHESIA: MAC PROCEDURE: The patient was brought to the operating room and placed under monitored anesthesia care by Anesthesia. A drop of tetracaine was then placed over the right eye. The patient was then prepped and draped in the usual sterile manner. A speculum was then placed over the right eye. The eye was then well irrigated with copious amounts of BSS (balanced salt solution). The operating microscope was then moved into position. A paracentesis was performed using a 15 degree blade. At this point 0.5 mL of 1% preservative-free lidocaine was injected into the anterior chamber. Amvisc Plus was then injected into the anterior chamber. A clear corneal incision was then formed using a 2.2 mm keratome. A capsulorrhexis was then performed in a continuous circular fashion beginning with a cystotome and completed with Utrata forceps. Hydrodissection was then performed using BSS on a cannula. The phaco probe was then introduced through the corneal wound and the cataract was removed using the phaco chop technique. Approximately 3 seconds of absolute phaco time was used. The remaining cortex was then removed using irrigation and aspiration with an I/A probe. The capsule was then filled with regular Amvisc and the capsule was noted to be intact. A previously selected foldable posterior chamber intraocular lens was then injected into the capsule through the corneal wound using a lens injector. It was then dialed into position using a Sinskey hook. The Amvisc was then removed using irrigation and aspiration. Miostat was then injected through the paracentesis to constrict the pupil. The paracentesis and corneal wound were then hydrated and noted to be watertight. A drop of Maxitrol was then placed over the eye. The speculum was removed and clear shield was taped over the eye. The patient tolerated the procedure well and there were no surgical complications. The patient was asked to follow up in my office the next day. MILTON ROONEY M.D. [id number]
[2019-01-11 10:22] VITALS: TEMP 97.6
[2019-01-11 10:28] VITALS: BP 161/50; PULSE 80
== END 2019-01-11 10:05 | disposition home or self-care (01) ==
LOC: FASU 06:58
PROVIDERS: ATTEND Ophthalmology
PROC: 08RJ3JZ Replacement of Right Lens with Synthetic Substitute, Percutaneous Approach (ICD-10-PCS; principal; 2019-01-11 08:56)
DX: H26.8 Other specified cataract (principal)
CPT/HCPCS: 87081

== ENCOUNTER 2019-02-01 20:42 | Inpatient (IN) | payer OTHER, BC ==
[2019-02-01] MEDS ORDERED: ACETAMINOPHEN 1000 MG/100 ML VIAL (NON FORMULARY) IVPB ONE (21:30)
[2019-02-01] MEDS ORDERED: SODIUM CHLORIDE 1,000 ML IV ONE (21:31)
--- NOTE | 2019-02-01 21:31 | PDOC ---
Documentation entered by Tad Crouch SCRIBE, acting as scribe for Jess Mcmahon MD. Jess Mcmahon MD: This documentation has been prepared by the Miko portillo Aiswarya, SCRIBE, under my direction and personally reviewed by me in its entirety. I confirm that the documentation accurately reflects all work, treatment, procedures, and medical decision making performed by me. History of Present Illness - General Chief Complaint: Cold Symptoms Stated Complaint: FEVER AND LIGHTHEADED Time Seen by Provider: 02/01/19 21:05 History Source: Patient Exam Limitations: No Limitations - History of Present Illness Initial Comments: 02/01/19 21:29 Assessment and plan: This is a 63-year-old female comes in complaining of shaking chills x1 days. Patient had a 102.6 temperature here in the emergency department. Patient had work-up initiated including chest x-ray, CBC, comp, urine, urine culture, blood. Patient given IV Tylenol and IV fluids. 02/01/19 21:52 The patient is a 63 year old female, with a significant PMH of anemia, bladder cancer, stents 2000, HTN and HLD, who presents to the emergency department with chills that began this morning. The patient states she endorses associated symptoms of SOB, fatigue, and increased warmth. She states she went to her primary care doctor for a regular check up and received the flu shot last week. The patient denies chest pain, headache and dizziness. Denies fever,, nausea, vomit, diarrhea and constipation.Denies dysuria, frequency, urgency and hematuria. PAST MEDICAL HISTORY: anemia, bladder cancer, stents 2000, HTN and HLD, PAST SURGICAL HISTORY: gastric bypass , aortic valve replacement 2018, 2010 right knee replacement FAMILY HISTORY: no pertinent history SOCIAL HISTORY: Quit smoking 2007 MEDICATIONS: reviewed ALLERGIES: As per nursing notes Adult ROS General:+chills + weakness.No fevers,no weight loss HEENT: No change in vision. No sore throat,. No ear pain CardioVascular: +sob. No chest pain Respiratory:No cough, or wheezing. Gastrointestinal: no nausea, vomiting, diarrhea or constipation, No rectal bleeding Genitourinary: No dysuria, hematuria, or frequency Musculoskeletal: No joint or muscle pain or swelling Neurologic: No headache, vertigo, dizziness or loss of consciousness Psychiatric: nor depression Skin: No rashes or easy bruising Endocrine: no increased thirst or abnormal weight change Allergic: no skin or latex allergy All other systems reviewed and normal Adult Exam: General: Well-nourished well-developed individual, no acute distress HEENT: Throat: Normal, tonsils normal, no erythema or exudate Neck: Supple, no meningeal signs, no lymphadenopathy Eyes::Pupils equal reactive and round, extraocular motion intact Chest: Nontender to palpation Cardiac: S1-S2 normal, regular rate and rhythm, no murmurs rubs or gallops Respiratory: Lungs clear to auscultation bilateral Abdomen: Soft, nondistended, normal bowel sounds, nontender to palpation diffusely Extremities: Warm, dry, no cyanosis, clubbing, or edema Skin: No rashes Neuro: Alert and oriented x3, nonfocal exam, grossly intact, normal gait Psych: Normal mood and affect 02/01/19 22:46 Reevaluation patient does have a mildly elevated white count and a positive urine for urinary tract infection. In addition to that patient does have a mildly elevated potassium of 5.6. Patient given ceftriaxone for her urinary tract infection 02/02/19 00:44 Reevaluation. Patient still is feeling poorly EKG was obtained which does not show any signs suggestive of acute hyperkalemia however given the fact the patient is not feeling any better, she is still febrile and her potassium is elevated I will admit her Past History - Past Medical History Allergies/Adverse Reactions: Allergies Allergy/AdvReac Type Severity Reaction Status Date / Time levofloxacin Allergy "DEVELOPED Verified 02/01/19 20:48 BLISTERS" Sulfa (Sulfonamide Allergy "DEVELOPED Verified 02/01/19 20:49 Antibiotics) A HIGH FEVER" Home Medications: Ambulatory Orders Aspirin [ASA -] 81 mg PO DAILY 02/13/16 Metoprolol Succinate [Toprol Xl] 50 mg PO DAILY 03/17/17 Hydrocodone/Acetaminophen [Hydrocodone-Acetamin 10-325 mg] 1 each PO QID Cholecalciferol (Vitamin D3) [Vitamin D3] 8,000 unit PO DAILY 02/01/19 Anemia: Yes Asthma: No Cancer: Yes (bladder ca) Cardiac Disorders: Yes (STENTS 1999) CVA: No COPD: No CHF: No Dementia: No Diabetes: (improved with sx) GI Disorders: No Disorders: No HTN: Yes Hypercholesterolemia: Yes Liver Disease: No Seizures: No Thyroid Disease: No Other medical history: H/O OF MRSA TO FOOT WOUND IN PAST YET WOUND IS CLOSED - Surgical History Abdominal Surgery: Yes (gastric bypass) Appendectomy: No Cardiac Surgery: Yes (AORTIC VALVE REPLACEMENT 2018) Cholecystectomy: No Lung Surgery: No Neurologic Surgery: No Orthopedic Surgery: Yes (2010 RIGHT KNEE REPLACEMENT, TOES REMOVED FROM LEFT FOOT) - Psycho Social/Smoking Cessation Hx Smoking Status: Yes Smoking History: Current every day smoker Have you smoked in the past 12 months: No Number of Cigarettes Smoked Daily: 30 If you are a former smoker, when did you quit?: 2007 Information on smoking cessation initiated: No Hx Alcohol Use: No Drug/Substance Use Hx: No Substance Use Type: None Hx Substance Use Treatment: No *Physical Exam - Vital Signs Last Vital Signs Temp Pulse Resp BP Pulse Ox 102.6 F H 95 H 18 146/58 L 95 02/01/19 20:45 02/01/19 20:45 02/01/19 20:45 02/01/19 20:45 02/01/19 20:45 ED Treatment Course - LABORATORY CBC & Chemistry Diagram: 02/01/19 21:50 02/01/19 21:50 - RADIOLOGY Radiology Studies Ordered: Category Date Time Status CHEST X-RAY PORTABLE* [RAD] Stat Radiology 02/01/19 21:19 Ordered Discharge - Discharge Information Problems reviewed: Yes Clinical Impression/Diagnosis: Cystitis, Hyperkalemia Condition: Fair - Admission Yes - Follow up/Referral Referrals: Fabrice Meehan MD [Primary Care Provider] - - Patient Discharge Instructions Additional Instructions: Take Macrodantin 1 tablet twice a day for 7 days for the urinary tract infection. It is very important that you call your doctor in the morning and that your doctor know how high your potassium s. Return to the emergency department immediately with ANY new, persistent or worsening symptoms. Continue any medications as previously prescribed by your physician. You should follow up with your primary doctor as soon as possible regarding today's emergency department visit. . Please make sure your doctor reviews the results of your emergency evaluation. Thank you for coming to the Emergency Department today for your care. It was a pleasure to see you today. Please note that your evaluation is INCOMPLETE until you follow-up with your doctor. - Post Discharge Activity
[2019-02-01 22:04] LABS: BASO % 0.6 % (0-2.0); EOS % 1.8 % (0-4.5); HEMATOCRIT 31.8 % (32.4-45.2); HEMOGLOBIN 10.6 GM/dl (10.7-15.3); LYMPH % 56.7 % (8-40); MCH 29.9 pg (25.7-33.7); MCHC 33.3 g/dl (32.0-36.0); MEAN CELL VOLUME 89.8 fl (80-96); NEUT % 36.9 % (42.8-82.8); PLATELET COUNT 139 K/MM3 (134-434); RBC 3.55 M/mm3 (3.60-5.2); RDW 14.2 % (11.6-15.6); WHITE BLOOD COUNT 14.3 K/mm3 (4.0-10.8)
[2019-02-01] MEDS ORDERED: ACETAMINOPHEN INJECTION 100 ML IVPB ONE (22:04)
[2019-02-01 22:16] LABS: ALBUMIN 3.9 g/dl (3.4-5.0); BILIRUBIN,TOTAL 0.4 mg/dl (0.2-1); CALCIUM 8.2 mg/dl (8.5-10); CREATININE 1.3 mg/dl (0.55-1.3); POTASSIUM 5.6 mmol/L (3.5-5.1); TOT PROT 6.7 g/dl (6.4-8.2)
[2019-02-01 22:29] LABS: EPITHELIAL CELLS FEW /hpf
[2019-02-01] MEDS ORDERED: CEFTRIAXONE 1,000 MG in DEXTROSE 5%-WATER - 50 ML IVPB ONE (22:40)
[2019-02-01] MEDS ORDERED: cefTRIAXone SODIUM 1 GM VIAL ONE (23:02)
[2019-02-01] MEDS ORDERED: KETOROLAC TROMETHAMINE 30 MG/1 ML VIAL IVPUSH ONE (23:43)
[2019-02-01] MEDS ORDERED: KETOROLAC TROMETHAMINE 30 MG/1 ML VIAL ONE (23:52)
[2019-02-02] MEDS ORDERED: SODIUM POLYSTYRENE SULFONATE 15 GM/60 ML BOTTLE PO ONE (00:55)
[2019-02-02] MEDS ORDERED: SODIUM POLYSTYRENE SULFONATE 15 GM/60 ML BOTTLE ONE (01:03)
[2019-02-02] MEDS ORDERED: SODIUM CHLORIDE 1,000 ML IV SCH ×2 (01:30→11:45)
[2019-02-02 02:26] VITALS: BMI 31.6
[2019-02-02] MEDS: ACETAMINOPHEN 325 MG TABLET (FP) PO PRN ×2 (05:14→21:39)
[2019-02-02] MEDS ORDERED: HEPARIN NA (PORCINE) 5,000 UNITS/ML 1ML VIAL SQ SCH (06:00)
[2019-02-02 07:18] LABS: BASO % 0.9 % (0-2.0); EOS % 0.6 % (0-4.5); HEMATOCRIT 28.9 % (32.4-45.2); HEMOGLOBIN 9.4 GM/dl (10.7-15.3); LYMPH % 50.9 % (8-40); MCH 28.7 pg (25.7-33.7); MCHC 32.6 g/dl (32.0-36.0); MEAN PLT VOLUME 8.5 fl (7.5-11.1); MONO % 5.5 % (3.8-10.2); NEUT % 42.1 % (42.8-82.8); PLATELET COUNT 122 K/MM3 (134-434); RBC 3.28 M/mm3 (3.60-5.2); RDW 13.7 % (11.6-15.6); WHITE BLOOD COUNT 13.5 K/mm3 (4.0-10.8)
[2019-02-02 07:32] LABS: CALCIUM 7.6 mg/dl (8.5-10); CREATININE 1.2 mg/dl (0.55-1.3)
--- NOTE | 2019-02-02 10:43 | HP ---
CHIEF COMPLAINT: Fever, sweats, chills PCP: Dr. Meehan HISTORY OF PRESENT ILLNESS: 63 year-old female with a PMH significant for HTN, HLD, CAD, Type II NIDDM, osteomyelitis left foot, and a chronic left foot wound. Patient [facility] with Dr. Moscoso. On her last visit on 01/24/19 Dr. Coats said the left foot wound was closed and looked good. She had pain in the left foot last week but it resolved. Patient has had a mild, non- productive cough x 1 week. Yesterday she had an acute onset of sweats and shaking chills. She was concerned and came to the ED. Patient denies nausea, vomiting, diarrhea. Denies dysuria, frequency, urgency. Got the flu shot two weeks ago. Last hospitalized and last antibiotic use in August 2018 for infection left foot. ER course was notable for: (1) T102.7, WBC 14.3k, (2) CXR: focal opacity right midlung Recent Travel: No PAST MEDICAL HISTORY: Hypertension Hyperlipidemia Coronary artery disease Type II NIDDM Osteomyelitis left foot 2017 Left foot chronic ulcer Psoriasis PAST SURGICAL HISTORY: Gastric bypass Left tibia ORIF 2011 Right total knee replacement Left toe amputations Social History: Smoking: quit 2007 Alcohol: occasional Drugs: no Allergies levofloxacin Allergy (Verified 02/01/19 20:48) "DEVELOPED BLISTERS" Sulfa (Sulfonamide Antibiotics) Allergy (Verified 02/01/19 20:49) "DEVELOPED A HIGH FEVER" HOME MEDICATIONS: Home Medications Medication Instructions Recorded Aspirin [ASA -] 81 mg PO DAILY 02/13/16 Metoprolol Succinate [Toprol Xl] 50 mg PO DAILY 03/17/17 Hydrocodone/Acetaminophen 1 each PO QID 12/02/18 [Hydrocodone-Acetamin 10-325 mg] Cholecalciferol (Vitamin D3) 8,000 unit PO DAILY 02/01/19 [Vitamin D3] REVIEW OF SYSTEMS CONSTITUTIONAL: +fever, sweats, chills Absent: generalized weakness, malaise, loss of appetite, weight change HEENT: Absent: rhinorrhea, nasal congestion, throat pain, throat swelling, difficulty swallowing, mouth swelling, ear pain, eye pain, visual changes CARDIOVASCULAR: Absent: chest pain, syncope, palpitations, irregular heart rate, lightheadedness , peripheral edema RESPIRATORY: Absent: cough, shortness of breath, dyspnea with exertion, orthopnea, wheezing, stridor, hemoptysis GASTROINTESTINAL: Absent: abdominal pain, abdominal distension, nausea, vomiting, diarrhea, constipation, melena, hematochezia GENITOURINARY: Absent: dysuria, frequency, urgency, hesitancy, hematuria, flank pain, genital pain MUSCULOSKELETAL: Absent: myalgia, arthralgia, joint swelling, back pain, neck pain SKIN: Absent: rash, itching, pallor HEMATOLOGIC/IMMUNOLOGIC: Absent: easy bleeding, easy bruising, lymphadenopathy, frequent infections ENDOCRINE: Absent: unexplained weight gain, unexplained weight loss, heat intolerance, cold intolerance NEUROLOGIC: Absent: headache, focal weakness or paresthesias, dizziness, unsteady gait, seizure, mental status changes, bladder or bowel incontinence PSYCHIATRIC: Absent: anxiety, depression, suicidal or homicidal ideation, hallucinations. PHYSICAL EXAMINATION Vital Signs - 24 hr 02/01/19 02/02/19 02/02/19 20:45 00:13 01:48 Temperature 102.6 F H 101.3 F H Pulse Rate 95 H 90 Pulse Rate [ Left Radial] Respiratory 18 Rate Blood Pressure 146/58 L Blood Pressure [Right Arm] O2 Sat by Pulse 95 99 Oximetry (%) 02/02/19 02/02/19 02/02/19 01:49 02:10 05:28 Temperature 101 F H 100.8 F H 102.7 F H Pulse Rate 95 H 91 H Pulse Rate [ 90 Left Radial] Respiratory 14 18 18 Rate Blood Pressure 159/59 L 139/46 L Blood Pressure 133/62 [Right Arm] O2 Sat by Pulse 99 98 Oximetry (%) 02/02/19 02/02/19 07:11 09:51 Temperature 99.8 F H 99.1 F Pulse Rate 68 Pulse Rate [ Left Radial] Respiratory 14 Rate Blood Pressure 115/40 L Blood Pressure [Right Arm] O2 Sat by Pulse Oximetry (%) GENERAL: Awake, alert, and fully oriented, in no acute distress. HEAD: Normal with no signs of trauma. EYES: Pupils equal, round and reactive to light, extraocular movements intact, sclera anicteric, conjunctiva clear. EARS, NOSE, THROAT: Ears normal, nares patent, oropharynx clear without exudates. Moist mucous membranes. NECK: Normal range of motion, supple without lymphadenopathy, JVD, or masses. LUNGS: Breath sounds equal, clear to auscultation bilaterally. No wheezes, and no crackles. No accessory muscle use. HEART: Regular rate and rhythm, normal S1 and S2 ABDOMEN: Soft, nontender, not distended, normoactive bowel sounds MUSCULOSKELETAL: Normal range of motion at all joints. No bony deformities or tenderness. No CVA tenderness. UPPER EXTREMITIES: 2+ pulses, warm, well-perfused. No cyanosis. No clubbing. No peripheral edema. LOWER EXTREMITIES: 2+ pulses, warm, well-perfused. No calf tenderness. No peripheral edema. LEFT FOOT: First and second toe amputated; well-healed surgical scars; no erythema, no warmth, no fluctuance; skin intact NEUROLOGICAL: Cranial nerves II-XII intact. Normal speech. Normal gait. SKIN: sacral area reddened, scaly, blanchable; similar patchy area right elbow Laboratory Results - last 24 hr 02/01/19 02/01/19 02/01/19 21:50 21:50 22:14 WBC 14.3 H RBC 3.55 L Hgb 10.6 L Hct 31.8 L MCV 89.8 MCH 29.9 MCHC 33.3 RDW 14.2 Plt Count 139 MPV 8.0 Absolute Neuts (auto) 5.3 Neutrophils % 36.9 L Lymphocytes % 56.7 H Monocytes % 4.0 Eosinophils % 1.8 Basophils % 0.6 Sodium 136 Potassium 5.6 H Chloride 111 H Carbon Dioxide 22 Anion Gap 3 L BUN 47.0 H Creatinine 1.3 Est GFR (CKD-EPI)AfAm 49.86 Est GFR (CKD-EPI)NonAf 43.02 Random Glucose 140 H Calcium 8.2 L Total Bilirubin 0.4 AST 21 ALT 15 Alkaline Phosphatase 122 H Total Protein 6.7 Albumin 3.9 Urine Color Yellow Urine Appearance Clear Urine pH 5.0 Urine Protein 1+ H Urine Glucose (UA) Negative Urine Ketones Negative Urine Blood Trace-lysed Urine Nitrite Negative Urine Bilirubin Negative Urine Urobilinogen 0.2 Ur Leukocyte Esterase 1+ Urine RBC 5-10 Urine WBC 10-20 Ur Transition Epith Cell Few Urine Bacteria Few 02/02/19 02/02/19 07:09 07:09 WBC 13.5 H RBC 3.28 L Hgb 9.4 L Hct 28.9 L MCV 88.0 MCH 28.7 MCHC 32.6 RDW 13.7 Plt Count 122 L MPV 8.5 Absolute Neuts (auto) 5.7 Neutrophils % 42.1 L Lymphocytes % 50.9 H Monocytes % 5.5 Eosinophils % 0.6 Basophils % 0.9 Sodium 141 Potassium 4.0 Chloride 112 H Carbon Dioxide 17 L Anion Gap 12 BUN 46.0 H Creatinine 1.2 Est GFR (CKD-EPI)AfAm 54.92 Est GFR (CKD-EPI)NonAf 47.39 Random Glucose 157 H Calcium 7.6 L Total Bilirubin AST ALT Alkaline Phosphatase Total Protein Albumin Urine Color Urine Appearance Urine pH Urine Protein Urine Glucose (UA) Urine Ketones Urine Blood Urine Nitrite Urine Bilirubin Urine Urobilinogen Ur Leukocyte Esterase Urine RBC Urine WBC Ur Transition Epith Cell Urine Bacteria ASSESSMENT/PLAN: 63 year-old female with a PMH significant for HTN, HLD, CAD, Type II NIDDM, osteomyelitis left foot, and a chronic left foot wound. Sepsis of uncertain etiology, UTI v. pneumonia v. osteo v. other --T102.7, WBC 14.3k on admission --pyuria --focal opacity in RML; repeat CXR PA & Lat pending --blood and urine cultures, flu swab, Legionella --NS x 1L in ED, another 1L now --lactic acid pending --start Vanc and Zosyn --ID consult --podiatry consult Left foot wound, chronic Osteomyelitis left foot --no obvious sign of infection, podiatry will evaluate --defer imaging pending podiatry input Hypertension --hold amlodipine, ToprolXL due to sepsis Hyperlipidemia --continue statin Coronary artery disease --continue ASA, statin, hold anti-hypertensives due to sepsis Type II NIDDM --diet controlled Psoriasis -patches of reddened, scaly skin sacral area and right elbow; sacral area is not a pressure ulcer FEN Fluids: has gotten 2L NS, continue 125mL/hr Electrolytes: replete as indicated Nutrition: diabetic, low sodium DVT prophylaxis: subq lovenox Dispo: continues to require inpatient care. Full code. Visit type - Emergency Visit Emergency Visit: Yes ED Registration Date: 02/02/19 Care time: The patient presented to the Emergency Department on the above date and was hospitalized for further evaluation of their emergent condition. - New Patient This patient is new to me today: Yes Date on this admission: 02/02/19 - Critical Care Critical Care patient: No
[2019-02-02] MEDS ORDERED: VANCOMYCIN HCL 1,500 MG in DEXTROSE 5%-WATER - 500 ML IVPB SCH (12:00)
[2019-02-02] MEDS ORDERED: PIPERACILLIN/TAZOB 3.375 GM 3.375 GM in DEXTROSE 5%-WATER - 50 ML IVPB SCH (12:00)
[2019-02-02] MEDS ORDERED: PIPERACILLIN/TAZOBACTAM 3.375 GM VIAL IVPB ONE ×2 (12:08→17:52)
[2019-02-02] MEDS ORDERED: DEXTROSE 5%-WATER - 50 ML IVPB ONE ×2 (12:09→17:52)
--- NOTE | 2019-02-02 13:19 | CON.ID ---
Consult Consult Specialty:: infectious diseases Referred by:: Lelo Reason for Consultation:: fever,leukocytosis - History of Present Illness Chief Complaint: fever,cough History of Present Illness: 63 year-old female with a PMH significant for HTN, HLD, CAD, Type II NIDDM, osteomyelitis left foot, and a chronic left foot wound. Patient [facility] with Dr. Moscoso. patients leg wound has healed completely according to her she started with mild cough since last week.She mentions that she has been lot of work going on in her house and lot of dust Yesterday she had an acute onset of sweats and shaking chills. She was concerned and came to the ED. Patient denies nausea, vomiting, diarrhea. Denies dysuria, frequency, urgency. Got the flu shot two weeks ago. currently feeling better on work up found to have leukocytosis and findings on the xray - History Source History Provided By: Patient Limitations to Obtaining History: No Limitations - Past Medical History ...: No - Alcohol/Substance Use Hx Alcohol Use: No - Smoking History Smoking history: Former smoker Have you smoked in the past 12 months: No Aproximately how many cigarettes per day: 30 If you are a former smoker, when did you quit?: 2007 Home Medications - Allergies Allergies/Adverse Reactions: Allergies Allergy/AdvReac Type Severity Reaction Status Date / Time levofloxacin Allergy "DEVELOPED Verified 02/01/19 20:48 BLISTERS" Sulfa (Sulfonamide Allergy "DEVELOPED Verified 02/01/19 20:49 Antibiotics) A HIGH FEVER" - Home Medications Home Medications: Ambulatory Orders Aspirin [ASA -] 81 mg PO DAILY 02/13/16 Metoprolol Succinate [Toprol Xl] 50 mg PO DAILY 03/17/17 Hydrocodone/Acetaminophen [Hydrocodone-Acetamin 10-325 mg] 1 each PO QID Cholecalciferol (Vitamin D3) [Vitamin D3] 8,000 unit PO DAILY 02/01/19 Review of Systems - Review of Systems Constitutional: reports: Chills, Fever Eyes: reports: No Symptoms HENT: reports: No Symptoms Neck: reports: No Symptoms Cardiovascular: reports: No Symptoms Respiratory: reports: Cough Gastrointestinal: reports: No Symptoms Genitourinary: reports: No Symptoms Musculoskeletal: reports: No Symptoms Integumentary: reports: No Symptoms Neurological: reports: No Symptoms Endocrine: reports: No Symptoms Hematology/Lymphatic: reports: No Symptoms Psychiatric: reports: No Symptoms Physical Exam Vital Signs: Vital Signs Temperature 99.1 F 02/02/19 09:51 Pulse Rate 68 02/02/19 09:51 Respiratory Rate 14 02/02/19 09:51 Blood Pressure 115/40 L 02/02/19 09:51 O2 Sat by Pulse Oximetry (%) 98 02/02/19 02:10 Constitutional: Yes: No Distress, Calm Cardiovascular: Yes: Regular Rate and Rhythm Respiratory: Yes: Regular, CTA Bilaterally Gastrointestinal: Yes: Normal Bowel Sounds, Soft Musculoskeletal: Yes: WNL Extremities: Yes: WNL Neurological: Yes: Alert, Oriented Psychiatric: Yes: Alert, Oriented Labs: CBC, BMP 02/02/19 07:09 02/02/19 07:09 Imaging - Results Chest X-ray: Report Reviewed, Image Reviewed
--- NOTE | 2019-02-02 13:37 | EKG ---
Test Reason : Blood Pressure : / mmHG Vent. Rate : 091 BPM Atrial Rate : 091 BPM P-R Int : 190 ms QRS Dur : 082 ms QT Int : 318 ms P-R-T Axes : 015 -08 060 degrees QTc Int : 391 ms NORMAL SINUS RHYTHM MINIMAL VOLTAGE CRITERIA FOR LVH, MAY BE NORMAL VARIANT SEPTAL INFARCT , AGE UNDETERMINED ABNORMAL ECG WHEN COMPARED WITH ECG OF 10-NOV-2016 03:18, NO SIGNIFICANT CHANGE WAS FOUND Confirmed by KARYN ZELAYA, LEONARDA ([id number]) on 02/02/2019 1:36:40 PM Referred By: MD TAPIA Confirmed By:LEONARDA BOSS MD
--- NOTE | 2019-02-02 14:45 | CONSULT ---
Consult Consult Specialty:: PODIATRY - History of Present Illness Chief Complaint: 63 y/o female admitted with leukocytosis. Has been having cough for roughly 2 weeks which has worsened. Sees my partner Dr. Moscoso in the wound care center and her wound on the right has healed completely. Only complaint is having random phantom pains from amputation. - Past Medical History ...: No - Alcohol/Substance Use Hx Alcohol Use: No - Smoking History Smoking history: Former smoker Have you smoked in the past 12 months: No Aproximately how many cigarettes per day: 30 If you are a former smoker, when did you quit?: 2007 Home Medications - Allergies Allergies/Adverse Reactions: Allergies Allergy/AdvReac Type Severity Reaction Status Date / Time levofloxacin Allergy "DEVELOPED Verified 02/01/19 20:48 BLISTERS" Sulfa (Sulfonamide Allergy "DEVELOPED Verified 02/01/19 20:49 Antibiotics) A HIGH FEVER" - Home Medications Home Medications: Ambulatory Orders Aspirin [ASA -] 81 mg PO DAILY 02/13/16 Metoprolol Succinate [Toprol Xl] 50 mg PO DAILY 03/17/17 Hydrocodone/Acetaminophen [Hydrocodone-Acetamin 10-325 mg] 1 each PO QID Cholecalciferol (Vitamin D3) [Vitamin D3] 8,000 unit PO DAILY 02/01/19 Physical Exam Vital Signs: Vital Signs Temperature 99.5 F 02/02/19 14:18 Pulse Rate 78 02/02/19 14:18 Respiratory Rate 18 02/02/19 14:18 Blood Pressure 138/38 L 02/02/19 14:18 O2 Sat by Pulse Oximetry (%) 99 02/02/19 14:18 Extremities: Yes: WNL, Other (Right foot with no open lesion, on edema, no erythema, no signs of infection noted,) Labs: CBC, BMP 02/02/19 07:09 02/02/19 07:09 Assessment/Plan 63 y/o healed right foot ulceration Evaluated and reviewed no signs of wound or infection on the right foot doubt WBC and fevers are coming from the foot Can hold of on any further scans of the foot unless signs of infection start to present likely coming from respiratory and/or UTI Thank you for this consult can re consult us as needed if any changes [phone]
[2019-02-02] MEDS: ASPIRIN 81 MG CHEWABLE TABLETS PO SCH (15:25)
[2019-02-02] MEDS: PIPERACILLIN/TAZOB 3.375 GM 3.375 GM in DEXTROSE 5%-WATER - 50 ML IVPB SCH (18:24)
[2019-02-02] MEDS: ATORVASTATIN CA 10 MG TABLET (FP) PO SCH (21:37)
[2019-02-02] MEDS ORDERED: PATIENT'S OWN MEDICATION (NON-FORMULARY) (Simvastatin [Simvastatin] 20 MG) PO SCH (22:00)
[2019-02-03] MEDS ORDERED: DEXTROSE 5%-WATER - 50 ML IVPB ONE ×3 (01:07→17:25)
[2019-02-03] MEDS ORDERED: PIPERACILLIN/TAZOBACTAM 3.375 GM VIAL IVPB ONE ×3 (01:07→17:25)
[2019-02-03] MEDS: PIPERACILLIN/TAZOB 3.375 GM 3.375 GM in DEXTROSE 5%-WATER - 50 ML IVPB SCH ×3 (01:15→17:29)
[2019-02-03] MEDS: ACETAMINOPHEN 325 MG TABLET (FP) PO PRN ×2 (03:30→20:13)
[2019-02-03 07:19] LABS: BASO % 0.2 % (0-2.0); EOS % 0.6 % (0-4.5); HEMATOCRIT 27.5 % (32.4-45.2); HEMOGLOBIN 8.8 GM/dl (10.7-15.3); LYMPH % 47.7 % (8-40); MCH 28.4 pg (25.7-33.7); MCHC 32.1 g/dl (32.0-36.0); MEAN CELL VOLUME 88.7 fl (80-96); MEAN PLT VOLUME 8.3 fl (7.5-11.1); MONO % 3.9 % (3.8-10.2); NEUT % 47.6 % (42.8-82.8); PLATELET COUNT 92 K/MM3 (134-434); WHITE BLOOD COUNT 9.9 K/mm3 (4.0-10.8)
[2019-02-03 07:32] LABS: ALBUMIN 2.4 g/dl (3.4-5.0); BILIRUBIN,TOTAL 0.7 mg/dl (0.2-1); CALCIUM 7.2 mg/dl (8.5-10); CREATININE 1.4 mg/dl (0.55-1.3); MAGNESIUM 1.4 mg/dL (1.8-2.4); TOT PROT 4.6 g/dl (6.4-8.2)
[2019-02-03] MEDS ORDERED: MAGNESIUM SULF 50% (8.12 MEQ/2 ML-1 GM VIAL) IVPB ONE (08:21)
[2019-02-03] MEDS ORDERED: SODIUM CHLORIDE 500 ML IV STA (08:23)
[2019-02-03] MEDS ORDERED: SODIUM CHLORIDE 1,000 ML IV SCH (08:30)
[2019-02-03] MEDS ORDERED: MAGNESIUM SULFATE IN WATER 2 GM/50 ML IVPB IVPB ONE (08:30)
[2019-02-03] MEDS ORDERED: KCL 10 MEQ IVPB 10 MEQ/100 ML INFUS.BAG IVPB SCH (08:30)
[2019-02-03] MEDS: PANTOPRAZOLE 40 MG TABLET (FP) PO SCH (09:19)
[2019-02-03] MEDS: POTASSIUM CHLORIDE TABS 20 MEQ TABLET.ER (FP) PO SCH ×2 (09:19→14:46)
[2019-02-03] MEDS: ASPIRIN 81 MG CHEWABLE TABLETS PO SCH (09:19)
[2019-02-03] MEDS: ENOXAPARIN NA (PORCINE) 40 MG/0.4 ML DISP.SYRIN SQ SCH (09:22)
--- NOTE | 2019-02-03 10:35 | PN ---
Physical Exam: SUBJECTIVE: Patient seen and examined at bedside. Has had diarrhea since being given kayexelate in ED. OBJECTIVE: Vital Signs Period Temp Pulse Resp BP Sys/King Pulse Ox Last 24 Hr 99.5 F-101.2 F 73-95 18-19 110-138/38-60 94-100 GENERAL: Awake, alert, and fully oriented, in no acute distress. LUNGS: Breath sounds equal, clear to auscultation bilaterally. No wheezes, and no crackles. No accessory muscle use. HEART: Regular rate and rhythm, normal S1 and S2 ABDOMEN: Soft, nontender, not distended, normoactive bowel sounds MUSCULOSKELETAL: Normal range of motion at all joints. No bony deformities or tenderness. No CVA tenderness. UPPER EXTREMITIES: 2+ pulses, warm, well-perfused. No cyanosis. No clubbing. No peripheral edema. LOWER EXTREMITIES: 2+ pulses, warm, well-perfused. No calf tenderness. No peripheral edema. LEFT FOOT: First and second toe amputated; well-healed surgical scars; no erythema, no warmth, no fluctuance; skin intact NEUROLOGICAL: Cranial nerves II-XII intact. Normal speech. Normal gait. SKIN: patchy psoriatic lesions both elbows, sacrum Laboratory Results - last 24 hr 02/02/19 02/02/19 02/03/19 13:55 18:30 07:07 WBC 9.9 RBC 3.10 L Hgb 8.8 L Hct 27.5 L MCV 88.7 MCH 28.4 MCHC 32.1 RDW 14.0 Plt Count 92 L MPV 8.3 Absolute Neuts (auto) 4.7 Neutrophils % 47.6 Lymphocytes % 47.7 H Monocytes % 3.9 Eosinophils % 0.6 Basophils % 0.2 Sodium Potassium Chloride Carbon Dioxide Anion Gap BUN Creatinine Est GFR (CKD-EPI)AfAm Est GFR (CKD-EPI)NonAf Random Glucose Lactic Acid 1.3 Calcium Magnesium Total Bilirubin AST ALT Alkaline Phosphatase Total Protein Albumin Influenza A (Rapid) Negative Influenza B (Rapid) Negative 02/03/19 07:07 WBC RBC Hgb Hct MCV MCH MCHC RDW Plt Count MPV Absolute Neuts (auto) Neutrophils % Lymphocytes % Monocytes % Eosinophils % Basophils % Sodium 139 Potassium 3.0 L Chloride 113 H Carbon Dioxide 18 L Anion Gap 8 BUN 43.0 H Creatinine 1.4 H Est GFR (CKD-EPI)AfAm 45.58 Est GFR (CKD-EPI)NonAf 39.33 Random Glucose 131 H Lactic Acid Calcium 7.2 L Magnesium 1.4 L Total Bilirubin 0.7 AST 37 ALT 30 Alkaline Phosphatase 86 D Total Protein 4.6 L Albumin 2.4 L Influenza A (Rapid) Influenza B (Rapid) Active Medications Generic Name Dose Route Start Last Admin Trade Name Freq PRN Reason Stop Dose Admin Acetaminophen 650 mg 02/02/19 01:28 02/03/19 03:30 Tylenol - PO 650 mg Q6H PRN Administration PAIN LEVEL 1-5 Aspirin 81 mg 02/02/19 14:45 02/03/19 09:19 Asa - PO 81 mg DAILY [facility] Administration Atorvastatin Calcium 10 mg 02/02/19 22:00 02/02/19 21:37 Lipitor - PO Not Given HS [facility] Enoxaparin Sodium 40 mg 02/03/19 10:00 02/03/19 09:22 Lovenox - SQ 40 mg DAILY [facility] Administration Piperacillin Sod/Tazobactam 50 mls @ 100 mls/hr 02/02/19 18:00 02/03/19 09:23 Sod 3.375 gm/ Dextrose IVPB 100 mls/hr Q8H-IV [facility] Administration Protocol Sodium Chloride 1,000 mls @ 125 mls/hr 02/03/19 08:30 02/03/19 09:22 Normal Saline - IV 125 mls/hr ASDIR [facility] Administration Potassium Chloride 10 meq in 100 mls @ 100 mls/hr 02/03/19 10:15 Potassium Chloride 10 Meq Premix Ivpb - IVPB 02/03/19 12:14 Q60M [facility] Pantoprazole Sodium 40 mg 02/03/19 10:00 02/03/19 09:19 Protonix - PO 40 mg DAILY [facility] Administration Potassium Chloride 40 meq 02/03/19 08:30 02/03/19 09:19 K-Dur - PO 02/03/19 14:31 40 meq Q6H [facility] Administration ASSESSMENT/PLAN 63 year-old female with a PMH significant for HTN, HLD, CAD, Type II NIDDM, AVR , osteomyelitis left foot, and a chronic left foot wound. Sepsis secondary to community-acquired pneumonia --still febrile, Tm 101.2, leukocytosis resolved --02/02 CT chest: acute RUL infiltrate --cultures negative to date --continue Zosyn (day #2) --ID following --repeat cxr in am Left foot wound, chronic Osteomyelitis left foot --no obvious sign of infection --seen and evaluated by podiatry, no further workup Aortic valve replacement Hypertension --still borderline hypotensive, continue to hold amlodipine, ToprolXL and restart as tolerated Hyperlipidemia --continue statin Coronary artery disease --continue ASA, statin, hold anti-hypertensives due to borderline hypotension Type II NIDDM --diet controlled Psoriasis -patches of reddened, scaly skin both elbows, sacrum --Aquaphor, hydrocortisone 1% cream BID to affected areas FEN Fluids: NS@ 75mL/hr Electrolytes: replete as indicated Nutrition: diabetic, low sodium DVT prophylaxis: subq lovenox Physical therapy Dispo: continues to require inpatient care. Full code. Visit type - Emergency Visit Emergency Visit: Yes ED Registration Date: 02/02/19 Care time: The patient presented to the Emergency Department on the above date and was hospitalized for further evaluation of their emergent condition. - New Patient This patient is new to me today: No - Critical Care Critical Care patient: Yes Total Critical Care Time (in minutes): 45 Critical Care Statement: The care of this patient involved high complexity decision making to prevent further life threatening deterioration of the patient 's condition and/or to evaluate & treat vital organ system(s) failure or risk of failure.
[2019-02-03] MEDS: KCL 10 MEQ IVPB 10 MEQ/100 ML INFUS.BAG IVPB SCH ×2 (10:46→11:52)
[2019-02-03] MEDS: SUCRALFATE 1 GM/10 ML UNIT DOSE CUPS PO SCH ×2 (11:52→17:29)
[2019-02-03] MEDS ORDERED: VANCOMYCIN HCL 1,500 MG in DEXTROSE 5%-WATER - 500 ML IVPB SCH (12:00)
[2019-02-03] MEDS: SODIUM CHLORIDE 1,000 ML IV SCH (15:10)
--- NOTE | 2019-02-03 15:52 | PN ---
Progress Note, Physician History of Present Illness: patient feeling better no new issues - Current Medication List Current Medications: Active Medications Acetaminophen (Tylenol -) 650 mg PO Q6H PRN PRN Reason: PAIN LEVEL 1-5 Last Admin: 02/03/19 03:30 Dose: 650 mg Aspirin (Asa -) 81 mg PO DAILY [facility] Last Admin: 02/03/19 09:19 Dose: 81 mg Atorvastatin Calcium (Lipitor -) 10 mg PO HS [facility] Last Admin: 02/02/19 21:37 Dose: Not Given Emollient Ointment (Aquaphor -) 1 applic TP BID [facility] Enoxaparin Sodium (Lovenox -) 40 mg SQ DAILY [facility] Last Admin: 02/03/19 09:22 Dose: 40 mg Hydrocortisone (Hytone 1% Cream -) 1 applic TP BID [facility] Piperacillin Sod/Tazobactam (Sod 3.375 gm/ Dextrose) 50 mls @ 100 mls/hr IVPB Q8H-IV [facility]; Protocol Last Admin: 02/03/19 09:23 Dose: 100 mls/hr Sodium Chloride (Normal Saline -) 1,000 mls @ 75 mls/hr IV ASDIR [facility] Pantoprazole Sodium (Protonix -) 40 mg PO DAILY [facility] Last Admin: 02/03/19 09:19 Dose: 40 mg Sucralfate (Carafate Oral Suspension -) 1 gm PO BIDAC [facility] Last Admin: 02/03/19 11:52 Dose: 1 gm - Objective Vital Signs: Vital Signs Temperature 99.8 F H 02/03/19 14:05 Pulse Rate 80 02/03/19 14:05 Respiratory Rate 19 02/03/19 14:05 Blood Pressure 119/42 L 02/03/19 14:05 O2 Sat by Pulse Oximetry (%) 100 02/03/19 14:05 Constitutional: Yes: No Distress, Calm Cardiovascular: Yes: Regular Rate and Rhythm Respiratory: Yes: Regular, CTA Bilaterally Gastrointestinal: Yes: Normal Bowel Sounds, Soft Musculoskeletal: Yes: WNL Extremities: Yes: WNL Neurological: Yes: Alert, Oriented Psychiatric: Yes: Alert, Oriented Labs: CBC, BMP 02/03/19 07:07 02/03/19 07:07 Assessment/Plan 63 year-old female with a PMH significant for HTN, HLD, CAD, Type II NIDDM, AVR , osteomyelitis left foot, and a chronic left foot wound. Sepsis pneumonia Left foot wound, chronic Osteomyelitis left foot treated Aortic valve replacement Hypertension Hyperlipidemia Coronary artery disease Type II NIDDM Psoriasis plan continue abx rest as per the team
[2019-02-03] MEDS ORDERED: PIPERACILLIN/TAZOB 3.375 GM 3.375 GM in DEXTROSE 5%-WATER - 50 ML IVPB SCH (18:00)
[2019-02-03 19:54] LABS: EPITHELIAL CELLS FEW /hpf
[2019-02-03 20:26] LABS: AMORP PHOS 1+ /hpf (NONE SEEN)
[2019-02-03] MEDS ORDERED: PT OWN MED DRAWER 7, Y5N ONE (21:38)
[2019-02-03] MEDS: ATORVASTATIN CA 10 MG TABLET (FP) PO SCH ×2 (21:45→21:53)
[2019-02-03] MEDS: HYDROCORTISONE 1% TOPICAL CREAM 30 GM TUBE TP SCH (21:46)
[2019-02-03] MEDS: MINERAL OIL/PET HY-PHL TOPICAL OINTMENT 454 GM JAR TP SCH (21:46)
[2019-02-04] MEDS ORDERED: DEXTROSE 5%-WATER - 50 ML IVPB ONE ×4 (01:05→23:43)
[2019-02-04] MEDS ORDERED: PIPERACILLIN/TAZOBACTAM 3.375 GM VIAL IVPB ONE ×4 (01:05→23:43)
[2019-02-04] MEDS: PIPERACILLIN/TAZOB 3.375 GM 3.375 GM in DEXTROSE 5%-WATER - 50 ML IVPB SCH ×3 (01:52→17:06)
[2019-02-04] MEDS: SUCRALFATE 1 GM/10 ML UNIT DOSE CUPS PO SCH ×2 (06:24→17:06)
[2019-02-04] MEDS: PANTOPRAZOLE 40 MG TABLET (FP) PO SCH (09:42)
[2019-02-04] MEDS: ASPIRIN 81 MG CHEWABLE TABLETS PO SCH (09:42)
[2019-02-04] MEDS: ENOXAPARIN NA (PORCINE) 40 MG/0.4 ML DISP.SYRIN SQ SCH (09:42)
[2019-02-04] MEDS: MINERAL OIL/PET HY-PHL TOPICAL OINTMENT 454 GM JAR TP SCH ×2 (09:48→21:14)
[2019-02-04] MEDS: HYDROCORTISONE 1% TOPICAL CREAM 30 GM TUBE TP SCH ×2 (09:55→21:14)
--- NOTE | 2019-02-04 10:24 | PN ---
Physical Exam: SUBJECTIVE: Patient seen and examined at bedside, reports feeling better, c/o having multiple loose BM's, no hematochezia,.denies cp, sob,cough, palpitations , abdominal pain N/V or urinary symptoms. OBJECTIVE: Vital Signs Period Temp Pulse Resp BP Sys/King Pulse Ox Last 24 Hr 98.7 F-100.2 F 72-91 16-20 105-147/38-82 97-100 GENERAL: The patient is awake, alert, and fully oriented, in no acute distress. HEAD: Normal with no signs of trauma. EYES: PERRL, extraocular movements intact, sclera anicteric, conjunctiva clear. No ptosis. ENT: Ears normal, nares patent, oropharynx clear without exudates, moist mucous membranes. NECK: Trachea midline, full range of motion, supple. LUNGS: Breath sounds equal, clear to auscultation bilaterally, no wheezes, no crackles, no accessory muscle use. HEART: Regular rate and rhythm, S1, S2, HM, no rub or gallop. ABDOMEN: Soft, nontender, nondistended, normoactive bowel sounds, no guarding, no rebound, no hepatosplenomegaly, no masses. EXTREMITIES: 2+ pulses, warm, well-perfused, no edema. NEUROLOGICAL: Cranial nerves II through XII grossly intact. Normal speech, gait not observed. PSYCH: Normal mood, normal affect. SKIN: Warm, dry, normal turgor, no rashes or lesions noted Laboratory Results - last 24 hr 02/03/19 16:10 Urine Color Yellow Urine Appearance Sl cloudy Urine pH 5.0 Urine Protein 2+ H Urine Glucose (UA) Negative Urine Ketones Negative Urine Blood Trace-intact Urine Nitrite Negative Urine Bilirubin Negative Urine Urobilinogen 0.2 Ur Leukocyte Esterase Negative Urine RBC 2-5 Urine WBC 0-2 Ur Transition Epith Cell Few Amorphous Phosphates 1+ Urine Bacteria Few Active Medications Generic Name Dose Route Start Last Admin Trade Name Freq PRN Reason Stop Dose Admin Acetaminophen 650 mg 02/02/19 01:28 02/03/19 20:13 Tylenol - PO 650 mg Q6H PRN Administration PAIN LEVEL 1-5 Aspirin 81 mg 02/02/19 14:45 02/04/19 09:42 Asa - PO 81 mg DAILY [facility] Administration Atorvastatin Calcium 10 mg 02/02/19 22:00 02/03/19 21:53 Lipitor - PO Not Given HS [facility] Emollient Ointment 1 applic 02/03/19 22:00 02/04/19 09:48 Aquaphor - TP 1 applic BID [facility] Administration Enoxaparin Sodium 40 mg 02/03/19 10:00 02/04/19 09:42 Lovenox - SQ 40 mg DAILY [facility] Administration Hydrocortisone 1 applic 02/03/19 22:00 02/04/19 09:55 Hytone 1% Cream - TP 1 applic BID [facility] Administration Piperacillin Sod/Tazobactam 50 mls @ 100 mls/hr 02/02/19 18:00 02/04/19 09:42 Sod 3.375 gm/ Dextrose IVPB 100 mls/hr Q8H-IV [facility] Administration Protocol Sodium Chloride 1,000 mls @ 75 mls/hr 02/03/19 14:55 02/03/19 15:10 Normal Saline - IV 75 mls/hr ASDIR [facility] Administration Pantoprazole Sodium 40 mg 02/03/19 10:00 02/04/19 09:42 Protonix - PO 40 mg DAILY [facility] Administration Sucralfate 1 gm 02/03/19 11:30 02/04/19 06:24 Carafate Oral Suspension - PO 1 gm BIDAC [facility] Administration ASSESSMENT/PLAN: 63 year-old female with a PMH significant for HTN, HLD, CAD, Type II NIDDM, AVR , osteomyelitis left foot, and a chronic left foot wound. Admitted with sepsis *Sepsis secondary to community-acquired pneumonia - max Tm 102.6, afebrile with mild leukocytosis -02/02 CT chest: acute RUL infiltrate -cultures negative to date -continue Zosyn (day #3) - Influenza ruled out, legionella neg -BC preliminary negative -ID following -repeat cxr : progressive atelectasis and RUL infiltrate *Left foot wound, chronic Osteomyelitis left foot -no obvious sign of infection -seen and evaluated by podiatry, no further workup * MICHELL on ?CKD - cre 1.3 >1.4>1.3 today -will monitor off IVF *Hypertension- initially, low BP- improved now -will restart pm home meds amlodipine, Toprol XL - will monitor BP closely *Hyperlipidemia -continue statin *Coronary artery disease -will continue ASA, statin, and BB *Type II NIDDM -diet controlled - FS monitoring *Psoriasis -patches of reddened, scaly skin both elbows, sacrum -Aquaphor, hydrocortisone 1% cream BID to affected areas * Anemia - chronic - Hgb base (8-10) - CBc stable - on overt signs of bleeding noted - follows with hematology Dr. Lisa * Diarrhea - likely due to abx use - added Probiotic - if diarrhea persist will check stool for C- diff FEN Fluids: NS@ 75mL/hr Electrolytes: replete as indicated Nutrition: diabetic, low sodium DVT prophylaxis: subq Lovenox Physical therapy Dispo: continues to require inpatient care. Full code. Visit type - Emergency Visit Emergency Visit: Yes ED Registration Date: 02/02/19 Care time: The patient presented to the Emergency Department on the above date and was hospitalized for further evaluation of their emergent condition. - New Patient This patient is new to me today: Yes Date on this admission: 02/04/19 - Critical Care Critical Care patient: No
[2019-02-04 10:53] LABS: HEMATOCRIT 28.4 % (32.4-45.2); HEMOGLOBIN 9.2 GM/dl (10.7-15.3); MCH 28.9 pg (25.7-33.7); MCHC 32.4 g/dl (32.0-36.0); MEAN CELL VOLUME 89.3 fl (80-96); PLATELET COUNT 96 K/MM3 (134-434); RBC 3.18 M/mm3 (3.60-5.2); RDW 14.5 % (11.6-15.6)
[2019-02-04] MEDS: LACTOBACILLUS ACIDOPHILUS 1 TABLET PO SCH (11:07)
[2019-02-04 11:09] LABS: CALCIUM 8.1 mg/dl (8.5-10); CREATININE 1.3 mg/dl (0.55-1.3); POTASSIUM 3.9 mmol/L (3.5-5.1)
--- NOTE | 2019-02-04 12:29 | PN ---
Progress Note, Physician History of Present Illness: Pt is feeling a bit better. Still with cough but improving. No current SOB. Tmax 100.2F - Current Medication List Current Medications: Active Medications Acetaminophen (Tylenol -) 650 mg PO Q6H PRN PRN Reason: PAIN LEVEL 1-5 Last Admin: 02/03/19 20:13 Dose: 650 mg Amlodipine Besylate (Norvasc -) 10 mg PO AM [facility] Aspirin (Asa -) 81 mg PO DAILY [facility] Last Admin: 02/04/19 09:42 Dose: 81 mg Atorvastatin Calcium (Lipitor -) 10 mg PO HS [facility] Last Admin: 02/03/19 21:53 Dose: Not Given Emollient Ointment (Aquaphor -) 1 applic TP BID [facility] Last Admin: 02/04/19 09:48 Dose: 1 applic Enoxaparin Sodium (Lovenox -) 40 mg SQ DAILY [facility] Last Admin: 02/04/19 09:42 Dose: 40 mg Hydrocortisone (Hytone 1% Cream -) 1 applic TP BID [facility] Last Admin: 02/04/19 09:55 Dose: 1 applic Piperacillin Sod/Tazobactam (Sod 3.375 gm/ Dextrose) 50 mls @ 100 mls/hr IVPB Q8H-IV [facility]; Protocol Last Admin: 02/04/19 09:42 Dose: 100 mls/hr Sodium Chloride (Normal Saline -) 1,000 mls @ 75 mls/hr IV ASDIR [facility] Last Admin: 02/03/19 15:10 Dose: 75 mls/hr Lactobacillus Acidophilus (Bacid -) 1 tab PO DAILY [facility] Last Admin: 02/04/19 11:07 Dose: 1 tab Metoprolol Succinate (Toprol Xl -) 50 mg PO DAILY [facility] Last Admin: 02/04/19 10:54 Dose: 50 mg Pantoprazole Sodium (Protonix -) 40 mg PO DAILY [facility] Last Admin: 02/04/19 09:42 Dose: 40 mg Sucralfate (Carafate Oral Suspension -) 1 gm PO BIDAC [facility] Last Admin: 02/04/19 06:24 Dose: 1 gm - Objective Vital Signs: Vital Signs Temperature 99.2 F 02/04/19 09:45 Pulse Rate 91 H 02/04/19 09:45 Respiratory Rate 18 02/04/19 09:45 Blood Pressure 147/48 L 02/04/19 09:45 O2 Sat by Pulse Oximetry (%) 97 02/04/19 09:45 Constitutional: Yes: No Distress, Calm Cardiovascular: Yes: Regular Rate and Rhythm Respiratory: Yes: CTA Bilaterally Gastrointestinal: Yes: Normal Bowel Sounds, Soft Genitourinary: Yes: WNL Extremities: Yes: WNL Integumentary: Yes: WNL Neurological: Yes: Alert Labs: CBC, BMP 02/04/19 10:30 02/04/19 10:30 Microbiology 02/01/19 22:15 Blood - Peripheral Venous Blood Culture - Preliminary NO GROWTH OBTAINED AFTER 48 HOURS, INCUBATION TO CONTINUE FOR 3 DAYS. 02/01/19 21:50 Blood - Peripheral Venous Blood Culture - Preliminary NO GROWTH OBTAINED AFTER 48 HOURS, INCUBATION TO CONTINUE FOR 3 DAYS. 02/02/19 19:15 Urine For Antigen Detection Legionella Antigen - Final 02/02/19 19:15 Urine For Antigen Detection Streptococcus pneumoniae Antigen (M - Final 02/01/19 22:14 Urine - Urine Clean Catch Urine Culture - Final Contaminated: Please Repeat - ....Imaging Chest X-ray: Report Reviewed Cat Scan: Report Reviewed Problem List - Problems (1) MICHELL (acute kidney injury) Code(s): N17.9 - ACUTE KIDNEY FAILURE, UNSPECIFIED (2) Diabetes mellitus Code(s): E11.9 - TYPE 2 DIABETES MELLITUS WITHOUT COMPLICATIONS Assessment/Plan PNA Sepsis DM CAD -- labs/imaging results noted -- pt slowly improving, downward temp trend, still with lowgrade fevers -- continue Zosyn for now --continue monitor wbc/temps
[2019-02-04] MEDS: SODIUM CHLORIDE 1,000 ML IV SCH (15:06)
[2019-02-04] MEDS ORDERED: REFRIGERATED ANITBIOTICS ONE (15:07)
[2019-02-04 17:13] LABS: PLATELET ESTIMATE SLT DECREASE
[2019-02-04] MEDS ORDERED: LOPERAMIDE HCL 2 MG CAPSULE PO ONE (20:56)
[2019-02-04] MEDS ORDERED: PT OWN MED DRAWER 7, Y5N ONE (21:09)
[2019-02-04] MEDS: ACETAMINOPHEN 325 MG TABLET (FP) PO PRN (21:14)
[2019-02-04] MEDS: ATORVASTATIN CA 10 MG TABLET (FP) PO SCH (21:14)
[2019-02-05] MEDS: PIPERACILLIN/TAZOB 3.375 GM 3.375 GM in DEXTROSE 5%-WATER - 50 ML IVPB SCH ×3 (01:43→17:18)
[2019-02-05] MEDS: SUCRALFATE 1 GM/10 ML UNIT DOSE CUPS PO SCH ×2 (06:31→17:18)
[2019-02-05] MEDS: amLODIPine BESYLATE 10 MG TABLET (FP) PO SCH (06:31)
[2019-02-05 08:33] LABS: HEMATOCRIT 26.2 % (32.4-45.2); HEMOGLOBIN 8.4 GM/dl (10.7-15.3); MCH 28.8 pg (25.7-33.7); MEAN CELL VOLUME 89.8 fl (80-96); PLATELET COUNT 86 K/MM3 (134-434); RBC 2.92 M/mm3 (3.60-5.2); RDW 14.4 % (11.6-15.6); WHITE BLOOD COUNT 10.8 K/mm3 (4.0-10.8)
[2019-02-05 08:36] LABS: CALCIUM 8.4 mg/dl (8.5-10); CREATININE 1.2 mg/dl (0.55-1.3); POTASSIUM 3.7 mmol/L (3.5-5.1)
[2019-02-05] MEDS ORDERED: DEXTROSE 5%-WATER - 50 ML IVPB ONE ×2 (09:27→17:15)
[2019-02-05] MEDS ORDERED: PIPERACILLIN/TAZOBACTAM 3.375 GM VIAL IVPB ONE ×2 (09:27→17:15)
[2019-02-05] MEDS: PANTOPRAZOLE 40 MG TABLET (FP) PO SCH (09:35)
[2019-02-05] MEDS: ASPIRIN 81 MG CHEWABLE TABLETS PO SCH (09:35)
[2019-02-05] MEDS: ENOXAPARIN NA (PORCINE) 40 MG/0.4 ML DISP.SYRIN SQ SCH (09:35)
[2019-02-05] MEDS: MINERAL OIL/PET HY-PHL TOPICAL OINTMENT 454 GM JAR TP SCH ×2 (09:38→21:32)
[2019-02-05] MEDS: HYDROCORTISONE 1% TOPICAL CREAM 30 GM TUBE TP SCH ×2 (09:38→21:32)
[2019-02-05] MEDS: LACTOBACILLUS ACIDOPHILUS 1 TABLET PO SCH (09:38)
--- NOTE | 2019-02-05 09:58 | PN ---
Physical Exam: SUBJECTIVE: Patient seen and examined, denies sob, cough pt still with loose stool, pt reports since gastric bypass, pt has always had soft/loose stool, pt also received kayexelate in ED for hyperkalemia denies abd pain, n/v, WBC 10.8, afebrile OBJECTIVE: Vital Signs Period Temp Pulse Resp BP Sys/King Pulse Ox Last 24 Hr 97.8 F-99.2 F 67-102 18-19 144-164/50-79 97-99 GENERAL: The patient is awake, alert, and fully oriented, in no acute distress. HEAD: Normal with no signs of trauma. EYES: PERRL, extraocular movements intact, sclera anicteric, conjunctiva clear. No ptosis. ENT: Ears normal, nares patent, oropharynx clear without exudates, moist mucous membranes. NECK: Trachea midline, full range of motion, supple. LUNGS: Breath sounds equal, clear to auscultation bilaterally, no wheezes, no crackles, no accessory muscle use. HEART: Regular rate and rhythm, S1, S2 without murmur, rub or gallop. ABDOMEN: Soft, nontender, nondistended, normoactive bowel sounds, no guarding, no rebound, no hepatosplenomegaly, no masses. EXTREMITIES: 2+ pulses, warm, well-perfused, no edema. NEUROLOGICAL: Cranial nerves II through XII grossly intact. Normal speech, gait not observed. PSYCH: Normal mood, normal affect. SKIN: Warm, dry, normal turgor, no rashes or lesions noted Laboratory Results - last 24 hr 02/04/19 02/04/19 02/05/19 10:30 10:30 08:20 WBC 11.0 H 10.8 RBC 3.18 L 2.92 L Hgb 9.2 L 8.4 L Hct 28.4 L 26.2 L MCV 89.3 89.8 MCH 28.9 28.8 MCHC 32.4 32.0 RDW 14.5 14.4 Plt Count 96 L 86 L MPV 8.0 10.0 Absolute Neuts (auto) 3.4 Neutrophils % No Result Required. Neutrophils % (Manual) 32.0 L Lymphocytes % No Result Required. Lymphocytes % (Manual) 60.0 H Monocytes % (Manual) 3 L Eosinophils % (Manual) 5.0 H Hypochromia Rare Platelet Estimate Slt decrease Sodium 139 Potassium 3.9 Chloride 117 H Carbon Dioxide 18 L Anion Gap 4 L BUN 35.0 H Creatinine 1.3 Est GFR (CKD-EPI)AfAm 49.86 Est GFR (CKD-EPI)NonAf 43.02 Random Glucose 121 H Calcium 8.1 L Magnesium 2.0 Active Medications Generic Name Dose Route Start Last Admin Trade Name Freq PRN Reason Stop Dose Admin Acetaminophen 650 mg 02/02/19 01:28 02/04/19 21:14 Tylenol - PO 650 mg Q6H PRN Administration PAIN LEVEL 1-5 Amlodipine Besylate 10 mg 02/05/19 07:00 02/05/19 06:31 Norvasc - PO 10 mg AM [facility] Administration Aspirin 81 mg 02/02/19 14:45 02/05/19 09:35 Asa - PO 81 mg DAILY [facility] Administration Atorvastatin Calcium 10 mg 02/02/19 22:00 02/04/19 21:14 Lipitor - PO 10 mg HS [facility] Administration Emollient Ointment 1 applic 02/03/19 22:00 02/05/19 09:38 Aquaphor - TP 1 applic BID [facility] Administration Enoxaparin Sodium 40 mg 02/03/19 10:00 02/05/19 09:35 Lovenox - SQ 40 mg DAILY [facility] Administration Hydrocortisone 1 applic 02/03/19 22:00 02/05/19 09:38 Hytone 1% Cream - TP 1 applic BID [facility] Administration Piperacillin Sod/Tazobactam 50 mls @ 100 mls/hr 02/02/19 18:00 02/05/19 09:35 Sod 3.375 gm/ Dextrose IVPB 100 mls/hr Q8H-IV [facility] Administration Protocol Sodium Chloride 1,000 mls @ 75 mls/hr 02/03/19 14:55 02/04/19 15:06 Normal Saline - IV 75 mls/hr ASDIR [facility] Administration Lactobacillus Acidophilus 1 tab 02/04/19 11:00 02/05/19 09:38 Bacid - PO 1 tab DAILY [facility] Administration Metoprolol Succinate 50 mg 02/04/19 10:30 02/05/19 09:38 Toprol Xl - PO 50 mg DAILY [facility] Administration Pantoprazole Sodium 40 mg 02/03/19 10:00 02/05/19 09:35 Protonix - PO 40 mg DAILY [facility] Administration Sucralfate 1 gm 02/03/19 11:30 02/05/19 06:31 Carafate Oral Suspension - PO 1 gm BIDAC [facility] Administration ASSESSMENT/PLAN: 63 year-old female with a PMH significant for HTN, HLD, CAD, Type II NIDDM, AVR , osteomyelitis left foot, and a chronic left foot wound. Admitted with sepsis *Sepsis secondary to community-acquired pneumonia -02/02 CT chest: acute RUL infiltrate -cultures negative to date -continue Zosyn (day #4) - Influenza ruled out, legionella neg -BC no growth -ID following -repeat cxr : progressive atelectasis and RUL infiltrate *Left foot wound, chronic Osteomyelitis left foot -no obvious sign of infection -seen and evaluated by podiatry, no further workup * MICHELL on ?CKD - cre 1.3 >1.4>1.3 today -will monitor off IVF *Hypertension -c/w home meds amlodipine, Toprol XL *Hyperlipidemia -c/w statin *Coronary artery disease -will continue ASA, statin, and BB *Type II NIDDM -diet controlled - FS monitoring *Psoriasis -patches of reddened, scaly skin both elbows, sacrum -Aquaphor, hydrocortisone 1% cream BID to affected areas * Anemia - chronic - Hgb base (8-10) - CBC stable - on overt signs of bleeding noted - follows with hematology Dr. Lisa * Diarrhea - likely due to abx use, kayexelate - c/w Probiotic FEN Fluids: NS@ 75mL/hr Electrolytes: replete as indicated Nutrition: diabetic, low sodium DVT prophylaxis: subq Lovenox Physical therapy Dispo: continues to require inpatient care. Full code. Visit type - Emergency Visit Emergency Visit: Yes ED Registration Date: 02/02/19 Care time: The patient presented to the Emergency Department on the above date and was hospitalized for further evaluation of their emergent condition. - New Patient This patient is new to me today: Yes Date on this admission: 02/05/19 - Critical Care Critical Care patient: No
[2019-02-05] MEDS ORDERED: LOPERAMIDE HCL 2 MG CAPSULE PO ONE (10:57)
[2019-02-05] MEDS: SODIUM CHLORIDE 1,000 ML IV SCH (14:19)
--- NOTE | 2019-02-05 16:28 | PN ---
Progress Note, Physician History of Present Illness: Pt states she feels better. Afebrile today. No SOB at this time. Had 2 unformed stools but no abd discomfort/pain. - Current Medication List Current Medications: Active Medications Acetaminophen (Tylenol -) 650 mg PO Q6H PRN PRN Reason: PAIN LEVEL 1-5 Last Admin: 02/04/19 21:14 Dose: 650 mg Amlodipine Besylate (Norvasc -) 10 mg PO AM [facility] Last Admin: 02/05/19 06:31 Dose: 10 mg Aspirin (Asa -) 81 mg PO DAILY [facility] Last Admin: 02/05/19 09:35 Dose: 81 mg Atorvastatin Calcium (Lipitor -) 10 mg PO HS [facility] Last Admin: 02/04/19 21:14 Dose: 10 mg Emollient Ointment (Aquaphor -) 1 applic TP BID [facility] Last Admin: 02/05/19 09:38 Dose: 1 applic Enoxaparin Sodium (Lovenox -) 40 mg SQ DAILY [facility] Last Admin: 02/05/19 09:35 Dose: 40 mg Hydrocortisone (Hytone 1% Cream -) 1 applic TP BID [facility] Last Admin: 02/05/19 09:38 Dose: 1 applic Piperacillin Sod/Tazobactam (Sod 3.375 gm/ Dextrose) 50 mls @ 100 mls/hr IVPB Q8H-IV [facility]; Protocol Last Admin: 02/05/19 09:35 Dose: 100 mls/hr Sodium Chloride (Normal Saline -) 1,000 mls @ 75 mls/hr IV ASDIR [facility] Last Admin: 02/04/19 15:06 Dose: 75 mls/hr Lactobacillus Acidophilus (Bacid -) 1 tab PO DAILY [facility] Last Admin: 02/05/19 09:38 Dose: 1 tab Metoprolol Succinate (Toprol Xl -) 50 mg PO DAILY [facility] Last Admin: 02/05/19 09:38 Dose: 50 mg Pantoprazole Sodium (Protonix -) 40 mg PO DAILY [facility] Last Admin: 02/05/19 09:35 Dose: 40 mg Sucralfate (Carafate Oral Suspension -) 1 gm PO BIDAC [facility] Last Admin: 02/05/19 06:31 Dose: 1 gm - Objective Vital Signs: Vital Signs Temperature 98.6 F 02/05/19 14:00 Pulse Rate 89 02/05/19 14:00 Respiratory Rate 18 02/05/19 14:00 Blood Pressure 152/62 02/05/19 14:00 O2 Sat by Pulse Oximetry (%) 98 02/05/19 09:07 Constitutional: Yes: No Distress, Calm Cardiovascular: Yes: Regular Rate and Rhythm Respiratory: Yes: CTA Bilaterally Gastrointestinal: Yes: Normal Bowel Sounds, Soft Genitourinary: Yes: WNL Extremities: Yes: WNL Edema: No Integumentary: Yes: WNL Neurological: Yes: Alert, Oriented Labs: CBC, BMP 02/05/19 08:20 02/05/19 08:20 Microbiology 02/03/19 16:10 Urine - Urine Clean Catch Urine Culture - Final NO GROWTH OBTAINED 02/01/19 22:15 Blood - Peripheral Venous Blood Culture - Preliminary NO GROWTH OBTAINED AFTER 72 HOURS, INCUBATION TO CONTINUE FOR 2 DAYS. 02/01/19 21:50 Blood - Peripheral Venous Blood Culture - Preliminary NO GROWTH OBTAINED AFTER 72 HOURS, INCUBATION TO CONTINUE FOR 2 DAYS. 02/02/19 19:15 Urine For Antigen Detection Legionella Antigen - Final 02/02/19 19:15 Urine For Antigen Detection Streptococcus pneumoniae Antigen (M - Final 02/01/19 22:14 Urine - Urine Clean Catch Urine Culture - Final Contaminated: Please Repeat Problem List - Problems (1) MICHELL (acute kidney injury) Code(s): N17.9 - ACUTE KIDNEY FAILURE, UNSPECIFIED (2) Diabetes mellitus Code(s): E11.9 - TYPE 2 DIABETES MELLITUS WITHOUT COMPLICATIONS Assessment/Plan PNA Sepsis DM CAD -- afebrile since yesterday, leukocytosis resolved -- continue Zosyn, reassess tomorrow for possible switch to oral antibiotics -- pt using incentive spirometer -- continue monitor
[2019-02-05] MEDS: ATORVASTATIN CA 10 MG TABLET (FP) PO SCH (21:33)
[2019-02-06] MEDS ORDERED: PIPERACILLIN/TAZOBACTAM 3.375 GM VIAL IVPB ONE ×2 (02:31→09:26)
[2019-02-06] MEDS ORDERED: DEXTROSE 5%-WATER - 50 ML IVPB ONE ×2 (02:31→09:26)
[2019-02-06] MEDS: PIPERACILLIN/TAZOB 3.375 GM 3.375 GM in DEXTROSE 5%-WATER - 50 ML IVPB SCH ×2 (02:35→09:47)
[2019-02-06] MEDS: SUCRALFATE 1 GM/10 ML UNIT DOSE CUPS PO SCH (06:36)
[2019-02-06] MEDS: amLODIPine BESYLATE 10 MG TABLET (FP) PO SCH (06:37)
[2019-02-06 08:30] LABS: BASO % 0.4 % (0-2.0); EOS % 3.9 % (0-4.5); HEMATOCRIT 28.9 % (32.4-45.2); HEMOGLOBIN 9.1 GM/dl (10.7-15.3); LYMPH % 73.6 % (8-40); MCH 28.5 pg (25.7-33.7); MCHC 31.6 g/dl (32.0-36.0); MEAN CELL VOLUME 90.1 fl (80-96); MEAN PLT VOLUME 9.7 fl (7.5-11.1); MONO % 5.3 % (3.8-10.2); NEUT % 16.8 % (42.8-82.8); PLATELET COUNT 89 K/MM3 (134-434); RDW 14.2 % (11.6-15.6); WHITE BLOOD COUNT 10.3 K/mm3 (4.0-10.8)
[2019-02-06 08:38] LABS: ALBUMIN 2.6 g/dl (3.4-5.0); BILIRUBIN,TOTAL 0.3 mg/dl (0.2-1); CALCIUM 8.3 mg/dl (8.5-10); CREATININE 0.9 mg/dl (0.55-1.3); MAGNESIUM 1.4 mg/dL (1.8-2.4); POTASSIUM 3.8 mmol/L (3.5-5.1); TOT PROT 5.2 g/dl (6.4-8.2)
[2019-02-06] MEDS ORDERED: POTASSIUM CHLORIDE TABS 10 MEQ TABLET.ER (FP) PO ONE (09:15)
[2019-02-06] MEDS ORDERED: MAGNESIUM SULFATE IN WATER 2 GM/50 ML IVPB IVPB ONE (09:15)
[2019-02-06 09:46] VITALS: BP 129/57; PULSE 85; TEMP 98.4
[2019-02-06] MEDS: ENOXAPARIN NA (PORCINE) 40 MG/0.4 ML DISP.SYRIN SQ SCH (09:47)
[2019-02-06] MEDS: ASPIRIN 81 MG CHEWABLE TABLETS PO SCH (09:47)
[2019-02-06] MEDS: PANTOPRAZOLE 40 MG TABLET (FP) PO SCH (09:47)
[2019-02-06] MEDS: MINERAL OIL/PET HY-PHL TOPICAL OINTMENT 454 GM JAR TP SCH (09:48)
[2019-02-06] MEDS: LACTOBACILLUS ACIDOPHILUS 1 TABLET PO SCH (09:48)
[2019-02-06] MEDS: HYDROCORTISONE 1% TOPICAL CREAM 30 GM TUBE TP SCH (09:48)
--- NOTE | 2019-02-06 11:18 | DS ---
Physical Exam: SUBJECTIVE: Patient seen and examined OBJECTIVE: Vital Signs Period Temp Pulse Resp BP Sys/King Pulse Ox Last 24 Hr 98.4 F-99.3 F 72-90 16-20 129-157/48-86 98-100 PHYSICAL EXAM GENERAL: The patient is awake, alert, and fully oriented, in no acute distress. HEAD: Normal with no signs of trauma. EYES: oropharynx clear without exudates, moist mucous membranes. NECK: Trachea midline, full range of motion, supple. LUNGS: Breath sounds equal, clear to auscultation bilaterally, no wheezes, no crackles, no accessory muscle use. HEART: Regular rate and rhythm, S1, S2 without murmur, rub or gallop. ABDOMEN: Soft, nontender, nondistended, normoactive bowel sounds, no guarding, no rebound, no hepatosplenomegaly, no masses. EXTREMITIES: 2+ pulses, warm, well-perfused, no edema. Left toe amputations NEUROLOGICAL: Cranial nerves II through XII grossly intact. Normal speech, gait steady and stable PSYCH: Normal mood, normal affect. SKIN: Warm, dry, normal turgor, no rashes or lesions noted. LABS Laboratory Results - last 24 hr 02/05/19 02/06/19 02/06/19 08:20 06:44 06:44 WBC 10.3 RBC 3.20 L Hgb 9.1 L Hct 28.9 L MCV 90.1 MCH 28.5 MCHC 31.6 L RDW 14.2 Plt Count 89 L MPV 9.7 Absolute Neuts (auto) 1.7 Neutrophils % 16.8 L Lymphocytes % 73.6 H Monocytes % 5.3 Eosinophils % 3.9 Basophils % 0.4 Sodium 142 142 Potassium 3.7 3.8 Chloride 116 H 115 H Carbon Dioxide 18 L 19 L Anion Gap 8 8 BUN 27.0 H 19.0 H Creatinine 1.2 0.9 Est GFR (CKD-EPI)AfAm 54.92 77.77 Est GFR (CKD-EPI)NonAf 47.39 67.10 Random Glucose 87 102 Calcium 8.4 L 8.3 L Magnesium 1.4 L Total Bilirubin 0.3 AST 17 ALT 21 Alkaline Phosphatase 72 D Total Protein 5.2 L Albumin 2.6 L HOSPITAL COURSE: Date of Admission:02/02/19 Date of Discharge: 02/06/19 Minutes to complete discharge: 40 Discharge Summary Problems reviewed: Yes Reason For Visit: Right upper lobe pneumonia, hyperkalemia Current Active Problems Cystitis (Acute) Hyperkalemia (Acute) Procedures: Principal: CXR 02/01/2019. Impression. Focal opacity in the right midlung zone below right upper lobe scarring is noted, concerning for atelectasis, infectious process. Follow-up x-ray of the chest without rotation recommended. No pneumothorax, large pleural effusion seen. No evidence of vascular congestive changes. Reported By: Deshaun Mi MD 02/02/[address] chest 02/02/2019. Acute right upper lobe infiltrate. Correlation with follow-up radiography is suggested following medical therapy to document resolution and exclude underlying pathology. Mild right upper lobe linear scarring. Splenomegaly. Status post transcatheter aortic valve replacement. Prominent atherosclerotic coronary artery calcifications. Cholelithiasis. Reported By: Fede Rose MD 02/02/19 1421. . CXR 02/01/2019. Impression: Progressive atelectasis and infiltrate right upper lobe since 02/01/2019. Reported By: Maxwell Edwards MD 02/04/19 1058. . CXR 2018. Impression: Segmental right upper lobe infiltrates, atelectasis improving in comparison to prior x-ray of the chest February 04, 2019. Reported By:Deshaun Mi MD 02/06/19 1000. . EKG 02/01/2019. Impression: NSR 91bpm, septal infarct age undetermined. No significant change when compared with EKG 11/10/2016. Hospital Course: 63 year-old female with a PMH significant for HTN, HLD, CAD, Aortic stenosis s/ p aortic valve replacement, Type II NIDDM, osteomyelitis left foot, and a chronic left foot wound. [facility] with Dr. Moscoso. On her last visit on 01/24/19 Dr. Coats said the left foot wound was closed and looked good. She had pain in the left foot last week but it resolved. Patient has had a mild, non-productive cough x 1 week. Yesterday she had an acute onset of sweats and shaking chills. She was concerned and came to the ED. Patient denies nausea, vomiting, diarrhea. Denies dysuria, frequency, urgency. Got the flu shot two weeks ago. Last hospitalized and last antibiotic use in August 2018 for infection left foot. ER course was notable for: (1) T102.7, WBC 14.3k, (2) CXR: focal opacity right midlung (3) Elevated K = 5.6, given kayexelate in ED. Hospital Course: Over the course of 5 days, pt defervesced and her WBC noramlized. CT scan did confirm RUL PNA. blood and urine cx negative. PT continued on Zosyn TID and was transitioned to Augmentin 875mg BID on 02/06 prior to discharge On 02/06, repeat CXR demonstrated improvement in RUL atelectasis. 2) with regards to hyperkalemia. Her K dipped to 3.0 in the setting of kayexalate. She was gently repleted prior to discharge home. Pt scheduled to follow up with PCP (DR. Meehan within 48hrs). Plan of Treatment: Follow up with Dr. Meehan 02/09/2019 9:30AM [address] [place] [address] Goals: resolution of pneumonia and cough Condition: Good - Instructions Referrals: Fabrice Meehan MD [Primary Care Provider] - Disposition: HOME - Home Medications Comprehensive Discharge Medication List: Ambulatory Orders Aspirin [ASA -] 81 mg PO DAILY 02/13/16 Metoprolol Succinate [Toprol Xl] 50 mg PO DAILY 03/17/17 Hydrocodone/Acetaminophen [Hydrocodone-Acetamin 10-325 mg] 1 each PO QID Cholecalciferol (Vitamin D3) [Vitamin D3] 8,000 unit PO DAILY 02/01/19 Acetaminophen [Tylenol .Regular Strength -] 650 mg PO Q6H PRN tablet 02/06/19 Amoxicillin/Potassium Clav [Augmentin 875-125 Tablet] 1 each PO BID 6 Days #12 tablet 02/06/19 Hydrocortisone 1% Cream [Hytone 1% Cream -] 1 applic TP BID tube 02/06/19 Lactobacillus Acidophilus [Bacid -] 1 tab PO DAILY tab 02/06/19 Mineral Oil/Pet Hy-Phl [Aquaphor -] 1 applic TP BID jar 02/06/19 Sucralfate Oral Suspension [Carafate Oral Suspension -] 1 gm PO BIDAC ml Problem List - Problems (1) Right upper lobe pneumonia Code(s): J18.1 - LOBAR PNEUMONIA, UNSPECIFIED ORGANISM (2) Hyperkalemia Code(s): E87.5 - HYPERKALEMIA This patient is new to me today: Yes Date on this admission: 02/06/19 Emergency Visit: Yes ED Registration Date: 02/02/19 Care time: The patient presented to the Emergency Department on the above date and was hospitalized for further evaluation of their emergent condition. Critical Care patient: No - Discharge Referral Referred to [facility] Yes Physician Referral: Fabrice Meehan MD (Int Med)
[2019-02-06] MEDS ORDERED: AZITHROMYCIN IVPB 500 MG/250 ML BAG IVPB ONE (12:00)
[2019-02-06] MEDS: SODIUM CHLORIDE 1,000 ML IV SCH (13:55)
--- NOTE | 2019-02-06 14:30 | PN ---
Progress Note, Physician History of Present Illness: doing well - Current Medication List Current Medications: Active Medications Acetaminophen (Tylenol -) 650 mg PO Q6H PRN PRN Reason: PAIN LEVEL 1-5 Last Admin: 02/04/19 21:14 Dose: 650 mg Amlodipine Besylate (Norvasc -) 10 mg PO AM [facility] Last Admin: 02/06/19 06:37 Dose: 10 mg Aspirin (Asa -) 81 mg PO DAILY [facility] Last Admin: 02/06/19 09:47 Dose: 81 mg Atorvastatin Calcium (Lipitor -) 10 mg PO HS [facility] Last Admin: 02/05/19 21:33 Dose: 10 mg Emollient Ointment (Aquaphor -) 1 applic TP BID [facility] Last Admin: 02/06/19 09:48 Dose: 1 applic Enoxaparin Sodium (Lovenox -) 40 mg SQ DAILY [facility] Last Admin: 02/06/19 09:47 Dose: 40 mg Hydrocortisone (Hytone 1% Cream -) 1 applic TP BID [facility] Last Admin: 02/06/19 09:48 Dose: 1 applic Piperacillin Sod/Tazobactam (Sod 3.375 gm/ Dextrose) 50 mls @ 100 mls/hr IVPB Q8H-IV OLGA LIDIA; Protocol Last Admin: 02/06/19 09:47 Dose: 100 mls/hr Sodium Chloride (Normal Saline -) 1,000 mls @ 75 mls/hr IV ASDIR [facility] Last Admin: 02/05/19 14:19 Dose: Not Given Lactobacillus Acidophilus (Bacid -) 1 tab PO DAILY [facility] Last Admin: 02/06/19 09:48 Dose: 1 tab Metoprolol Succinate (Toprol Xl -) 50 mg PO DAILY [facility] Last Admin: 02/06/19 09:48 Dose: 50 mg Pantoprazole Sodium (Protonix -) 40 mg PO DAILY [facility] Last Admin: 02/06/19 09:47 Dose: 40 mg Sucralfate (Carafate Oral Suspension -) 1 gm PO BIDAC [facility] Last Admin: 02/06/19 06:36 Dose: 1 gm - Objective Vital Signs: Vital Signs Temperature 98.4 F 02/06/19 09:40 Pulse Rate 85 02/06/19 09:40 Respiratory Rate 17 02/06/19 09:40 Blood Pressure 129/57 L 02/06/19 09:40 O2 Sat by Pulse Oximetry (%) 98 02/06/19 09:40 Constitutional: Yes: No Distress, Calm Cardiovascular: Yes: Regular Rate and Rhythm Respiratory: Yes: Regular, CTA Bilaterally Gastrointestinal: Yes: Soft Musculoskeletal: Yes: WNL Extremities: Yes: WNL Neurological: Yes: Alert, Oriented Psychiatric: Yes: Alert, Oriented Labs: CBC, BMP 02/06/19 06:44 02/06/19 06:44 Assessment/Plan 63 year-old female with a PMH significant for HTN, HLD, CAD, Type II NIDDM, AVR , osteomyelitis left foot, and a chronic left foot wound. Sepsis pneumonia Left foot wound, chronic Osteomyelitis left foot treated Aortic valve replacement Hypertension Hyperlipidemia Coronary artery disease Type II NIDDM Psoriasis plan continue abx rest as per the team can be switched to oral
== END 2019-02-06 14:43 | disposition home or self-care (01) | DRG 871 ==
LOC: FER 20:42 → FM/S 02-02 00:52 → UNDOADMIN 02-02 01:23
PROVIDERS: ADMIT Internal Medicine; ATTEND Nurse Practitioner Family
DX: A41.9 Sepsis, unspecified organism (principal); J18.9 Pneumonia, unspecified organism; M86.60 Other chronic osteomyelitis, unspecified site; N17.9 Acute kidney failure, unspecified; E11.69 Type 2 diabetes mellitus with other specified complication; E87.5 Hyperkalemia; E11.621 Type 2 diabetes mellitus with foot ulcer; I25.10 Atherosclerotic heart disease of native coronary artery without angina pectoris; L40.9 Psoriasis, unspecified; D72.829 Elevated white blood cell count, unspecified; D64.9 Anemia, unspecified; R19.7 Diarrhea, unspecified; E78.5 Hyperlipidemia, unspecified
CPT/HCPCS: 36415; 71045-TC-FY; 71250-TC; 80048; 80053; 81003; 81015; 83605; 83735; 85025; 85027; 87040; 87086; 87804; 87899; 93005; 97116-GP; 97162-GP; 99285-25; J0131; J1644; J7030

== ENCOUNTER 2019-10-25 09:20 | Day surgery (SDC) | payer OTHER, BC ==
[2019-10-25] MEDS ORDERED: IRON SUCROSE INJECTION 200 MG in SODIUM CHLORIDE 100 ML IVPB ONE (09:45)
[2019-10-25 10:57] VITALS: BP 129/46; PULSE 67
== END 2019-10-25 11:12 | disposition home or self-care (01) ==
LOC: FBLOOD 09:20 → FM/S 09:20 → FBLOOD 11:12
PROVIDERS: ATTEND Internal Medicine Hematology & Oncology
PROC: 3E033GC Introduction of Other Therapeutic Substance into Peripheral Vein, Percutaneous Approach (ICD-10-PCS; principal; 2019-10-25)
DX: D50.9 Iron deficiency anemia, unspecified (principal)
CPT/HCPCS: 96365; J1756

== ENCOUNTER 2019-10-31 09:32 | Day surgery (SDC) | payer OTHER, BC ==
[2019-10-31] MEDS ORDERED: IRON SUCROSE INJECTION 200 MG/100 ML BAG IVPB ONE (10:00)
[2019-10-31 10:20] VITALS: TEMP 98.2
[2019-10-31 11:05] VITALS: BP 122/62; PULSE 64
== END 2019-10-31 11:06 | disposition home or self-care (01) ==
LOC: FBLOOD 09:32 → FM/S 09:34 → EDSTATUS 10:46 → FBLOOD 11:06
PROVIDERS: ATTEND Internal Medicine Hematology & Oncology
PROC: 3E033GC Introduction of Other Therapeutic Substance into Peripheral Vein, Percutaneous Approach (ICD-10-PCS; principal; 2019-10-31)
DX: D50.9 Iron deficiency anemia, unspecified (principal)
CPT/HCPCS: 96365; J1756

== ENCOUNTER 2022-01-19 13:23 | Emergency (ER) | payer OTHER, BC ==
[2022-01-19 13:53] VITALS: BP 137/48; PULSE 56; RESP 20; TEMP 97.7; BMI 15.2
[2022-01-19 15:01] LABS: ALBUMIN 3.8 g/dl (3.4-5.0); BILIRUBIN,TOTAL 0.5 mg/dl (0.2-1); CALCIUM 9.1 mg/dl (8.5-10); CREATININE 1.1 mg/dl (0.55-1.3); TOT PROT 6.1 g/dl (6.4-8.2)
== END 2022-01-19 15:58 | disposition home or self-care (01) ==
LOC: FER 13:23
DX: E87.5 Hyperkalemia (principal)
CPT/HCPCS: 36415; 80053; 93005; 99284-25

== ENCOUNTER 2022-01-31 13:40 | Emergency (ER) | payer OTHER, BC ==
[2022-01-31 13:51] VITALS: BP 162/76; PULSE 60; RESP 16; TEMP 97.8; BMI 27.4
[2022-01-31 15:38] LABS: CALCIUM 8.6 mg/dl (8.5-10)
== END 2022-01-31 16:40 | disposition home or self-care (01) ==
LOC: FER 13:40
DX: M25.511 Pain in right shoulder (principal); M79.604 Pain in right leg; W10.8XXA Fall (on) (from) other stairs and steps, initial encounter
CPT/HCPCS: 36415; 73030-TC-RT-FY; 73610-TC-RT-FY; 73630-TC-RT-FY; 80048; 99284-25

== ENCOUNTER 2022-02-04 09:07 | Inpatient (IN) | payer OTHER, BC ==
[2022-02-04] MEDS ORDERED: SODIUM CHLORIDE 0.9% 500 ML INFUS.BAG IV ONE (09:14)
[2022-02-04] MEDS ORDERED: CEFTRIAXONE 1,000 MG in DEXTROSE 5%-WATER - 50 ML IVPB ONE (09:14)
[2022-02-04] MEDS ORDERED: ACETAMINOPHEN 1000 MG/100 ML BAG IVPB ONE (09:14)
[2022-02-04 09:56] VITALS: BMI 25.0
[2022-02-04 10:01] LABS: INR 1.36 (0.83-1.09); PROTHROMBIN TIME (PATIENT) 15.7 SEC (9.7-13.0)
[2022-02-04 10:04] LABS: ACTIVATED PTT 40.1 SECONDS (25.2-36.5)
[2022-02-04 10:07] LABS: HEMATOCRIT 32.1 % (32.4-45.2); MCH 31.7 pg (25.7-33.7); MCHC 34.1 g/dl (32.0-36.0); MEAN CELL VOLUME 92.7 fl (80-96); MEAN PLT VOLUME 7.9 fl (7.5-11.1); PLATELET COUNT 131.2 10^3/uL (134-434); RBC 3.46 10^6/uL (3.60-5.2); RDW 13.5 % (11.6-15.6); WHITE BLOOD COUNT 5.5 10^3/uL (4.0-10.8)
[2022-02-04 10:10] LABS: ALBUMIN 3.5 g/dl (3.4-5.0); BILIRUBIN,TOTAL 0.8 mg/dl (0.2-1); CALCIUM 8.7 mg/dl (8.5-10); CREATININE 1.1 mg/dl (0.55-1.3); TOT PROT 5.9 g/dl (6.4-8.2)
[2022-02-04] MEDS ORDERED: cefTRIAXone SODIUM 1 GM VIAL ONE (10:30)
[2022-02-04 10:38] LABS: PLATELET ESTIMATE SLT DECREASE
[2022-02-04] MEDS ORDERED: ACETAMINOPHEN INJECTION 100 ML IVPB ONE (10:42)
[2022-02-04 10:49] LABS: EPITHELIAL CELLS FEW /hpf
[2022-02-04] MEDS ORDERED: AZITHROMYCIN IVPB 500 MG in DEXTROSE 5%-WATER - 250 ML IVPB ONE (11:50)
[2022-02-04 12:09] LABS: VENOUS BASE EXCESS -3.5 mmol/L (-2-2); VENOUS O2 SATURATION 76.9 % (70-80); VENOUS PH 7.375 (7.310-7.410)
[2022-02-04] MEDS ORDERED: AZITHROMYCIN 500 MG VIAL IVPB ONE (12:49)
[2022-02-04] MEDS: ACETAMINOPHEN 325 MG TABLET (FP) PO PRN (18:14)
[2022-02-04] MEDS: LIDOCAINE 5% TOPICAL PATCH TP SCH (18:15)
[2022-02-04] MEDS: ATORVASTATIN CA 10 MG TABLET (FP) PO SCH ×2 (22:05→22:07)
[2022-02-04] MEDS: LIDOCAINE PATCH REMOVAL MC SCH (22:06)
[2022-02-05] MEDS ORDERED: ACETAMINOPHEN 1000 MG/100 ML BAG IVPB ONE (00:06)
[2022-02-05] MEDS ORDERED: FAMOTIDINE 20 MG TABLET PO ONE (00:26)
[2022-02-05 09:18] LABS: ALBUMIN 2.9 g/dl (3.4-5.0); BILIRUBIN,TOTAL 0.8 mg/dl (0.2-1); CALCIUM 8.5 mg/dl (8.5-10); MAGNESIUM 1.5 mg/dL (1.8-2.4); PHOSPHOROUS 3.5 mg/dl (2.5-4.9); TOT PROT 5.2 g/dl (6.4-8.2)
[2022-02-05] MEDS: ENOXAPARIN NA (PORCINE) 40 MG/0.4 ML DISP.SYRIN SQ SCH (10:38)
[2022-02-05] MEDS: ASPIRIN 81 MG CHEWABLE TABLETS PO SCH (10:38)
[2022-02-05] MEDS: PANTOPRAZOLE 40 MG TABLET PO SCH (10:39)
[2022-02-05] MEDS: CHOLECALCIFEROL (VIT D3) 1,000 UNIT (25 MCG) TABLET PO SCH (10:39)
[2022-02-05] MEDS: LIDOCAINE 5% TOPICAL PATCH TP SCH (10:40)
[2022-02-05] MEDS: LACTOBACILLUS ACIDOPHILUS 1 TABLET PO SCH (10:40)
[2022-02-05] MEDS: CEFTRIAXONE 1 GM in DEXTROSE 5%-WATER - 50 ML IVPB SCH (10:40)
[2022-02-05 11:34] LABS: HEMATOCRIT 31.2 % (32.4-45.2); HEMOGLOBIN 10.4 GM/dL (10.7-15.3); MCH 31.2 pg (25.7-33.7); MCHC 33.4 g/dl (32.0-36.0); MEAN CELL VOLUME 93.4 fl (80-96); MEAN PLT VOLUME 9.1 fl (7.5-11.1); PLATELET COUNT 115 10^3/uL (134-434); RBC 3.34 M/mm3 (3.60-5.2); RDW 14.1 % (11.6-15.6); WHITE BLOOD COUNT 4.3 K/mm3 (4.0-10.0)
[2022-02-05] MEDS: AZITHROMYCIN IVPB 500 MG/250 ML BAG IVPB SCH (13:17)
[2022-02-05 15:10] LABS: ANISOCYTOSIS 1+; MACROCYTOSIS 0
[2022-02-05] MEDS: SUCRALFATE 1 GM/10 ML UNIT DOSE CUPS PO SCH (17:50)
[2022-02-05] MEDS: ACETAMINOPHEN 325 MG TABLET (FP) PO PRN (20:08)
[2022-02-06] MEDS: SUCRALFATE 1 GM/10 ML UNIT DOSE CUPS PO SCH (06:01)
[2022-02-06] MEDS: LIDOCAINE PATCH REMOVAL MC SCH (06:02)
[2022-02-06] MEDS: ACETAMINOPHEN 325 MG TABLET (FP) PO PRN (06:43)
[2022-02-06] MEDS ORDERED: amLODIPine BESYLATE 10 MG TABLET (FP) PO SCH (07:00)
[2022-02-06 08:11] LABS: HEMATOCRIT 26.7 % (32.4-45.2); MCH 31.2 pg (25.7-33.7); MCHC 33.7 g/dl (32.0-36.0); MEAN CELL VOLUME 92.7 fl (80-96); MEAN PLT VOLUME 8.5 fl (7.5-11.1); PLATELET COUNT 111.9 10^3/uL (134-434); RBC 2.88 10^6/uL (3.60-5.2); RDW 13.7 % (11.6-15.6); WHITE BLOOD COUNT 2.9 10^3/uL (4.0-10.8)
[2022-02-06 08:20] LABS: CALCIUM 8.5 mg/dl (8.5-10); CREATININE 0.9 mg/dl (0.55-1.3); MAGNESIUM 1.4 mg/dL (1.8-2.4); PHOSPHOROUS 2.8 mg/dl (2.5-4.9)
[2022-02-06] MEDS ORDERED: MAGNESIUM SULF 50% (8.12 MEQ/2 ML-1 GM VIAL) IVPB ONE (08:39)
[2022-02-06] MEDS ORDERED: POTASSIUM CHLORIDE TABS 20 MEQ TABLET.ER (FP) PO ONE (08:45)
[2022-02-06] MEDS ORDERED: MAGNESIUM SULFATE IN WATER 2 GM/50 ML IVPB IVPB ONE (09:00)
[2022-02-06] MEDS: CEFTRIAXONE 1 GM in DEXTROSE 5%-WATER - 50 ML IVPB SCH (09:33)
[2022-02-06] MEDS: ASPIRIN 81 MG CHEWABLE TABLETS PO SCH ×2 (09:40→09:48)
[2022-02-06] MEDS: LACTOBACILLUS ACIDOPHILUS 1 TABLET PO SCH (09:40)
[2022-02-06] MEDS: CHOLECALCIFEROL (VIT D3) 1,000 UNIT (25 MCG) TABLET PO SCH (09:42)
[2022-02-06] MEDS: ENOXAPARIN NA (PORCINE) 40 MG/0.4 ML DISP.SYRIN SQ SCH (09:42)
[2022-02-06] MEDS: PANTOPRAZOLE 40 MG TABLET PO SCH (09:43)
[2022-02-06] MEDS: LIDOCAINE 5% TOPICAL PATCH TP SCH (09:44)
[2022-02-06] MEDS ORDERED: VANCOMYCIN 250 MG/5 ML ORAL SOLUTION PO SCH (10:00)
[2022-02-06 10:41] VITALS: BP 137/40; PULSE 69; RESP 16; TEMP 98.4
[2022-02-06] MEDS: AZITHROMYCIN IVPB 500 MG/250 ML BAG IVPB SCH (12:05)
== END 2022-02-06 15:39 | disposition home or self-care (01) | DRG 871 ==
LOC: FER 09:07 → FM/S 12:47
PROVIDERS: ADMIT Internal Medicine; ATTEND Internal Medicine
DX: A41.89 Other specified sepsis (principal); G93.41 Metabolic encephalopathy; J18.9 Pneumonia, unspecified organism; I24.8 Other forms of acute ischemic heart disease; I10 Essential (primary) hypertension; E78.5 Hyperlipidemia, unspecified; I25.10 Atherosclerotic heart disease of native coronary artery without angina pectoris; D69.6 Thrombocytopenia, unspecified; R35.0 Frequency of micturition; E11.9 Type 2 diabetes mellitus without complications; M06.9 Rheumatoid arthritis, unspecified; S91.302A Unspecified open wound, left foot, initial encounter; Z96.651 Presence of right artificial knee joint; Z98.61 Coronary angioplasty status; Z85.51 Personal history of malignant neoplasm of bladder; Z95.2 Presence of prosthetic heart valve; Z98.84 Bariatric surgery status; Z85.72 Personal history of non-Hodgkin lymphomas; X58.XXXA Exposure to other specified factors, initial encounter; Y92.89 Other specified places as the place of occurrence of the external cause
CPT/HCPCS: 0241U-QW; 36415; 70450-TC; 71045-TC-FY; 80048; 80053; 81003; 81015; 82553; 82803; 82962; 83605; 83735; 84100; 84484; 85027; 85610; 85730; 86850; 86900; 86901; 87040; 87081; 87086; 87186; 93005; 97116-GP; 97162-GP; 99285-25

== ENCOUNTER 2022-02-09 18:43 | Emergency (ER) | payer OTHER, BC ==
[2022-02-09 18:55] VITALS: BP 152/48; PULSE 72; RESP 16; TEMP 98; BMI 26.6
== END 2022-02-09 19:54 | disposition home or self-care (01) ==
LOC: FER 18:43
DX: L27.0 Generalized skin eruption due to drugs and medicaments taken internally (principal)
CPT/HCPCS: 99281-25

== ENCOUNTER 2022-02-20 04:19 | Day surgery (SDC) | payer OTHER, BC ==
[2022-02-19 15:40] VITALS: BMI 26.3
[2022-02-20 11:29] VITALS: TEMP 97.8
[2022-02-20 15:17] VITALS: BP 127/75; PULSE 61; RESP 15
== END 2022-02-20 12:25 | disposition home or self-care (01) ==
LOC: JASU-ENDO 04:19
PROVIDERS: ATTEND Internal Medicine Gastroenterology
PROC: 0DB68ZX Excision of Stomach, Via Natural or Artificial Opening Endoscopic, Diagnostic (ICD-10-PCS; 2022-02-20)
PROC: 0DBA8ZX Excision of Jejunum, Via Natural or Artificial Opening Endoscopic, Diagnostic (ICD-10-PCS; principal; 2022-02-20 11:30)
DX: K21.00 Gastro-esophageal reflux disease with esophagitis, without bleeding (principal); K44.9 Diaphragmatic hernia without obstruction or gangrene; Z98.84 Bariatric surgery status; K29.50 Unspecified chronic gastritis without bleeding
CPT/HCPCS: 88305-TC; 88312-TC; 88342-TC

== ENCOUNTER 2023-03-10 12:44 | Inpatient (IN) | payer OTHER, BC ==
[2023-03-10 13:27] VITALS: BMI 27.4
[2023-03-10 13:40] LABS: INR 1.22 (0.83-1.09); PROTHROMBIN TIME (PATIENT) 14.1 SEC (9.7-13.0)
[2023-03-10 13:43] LABS: ACTIVATED PTT 32.7 SECONDS (25.2-36.5)
[2023-03-10 13:51] LABS: ALBUMIN 3.4 g/dl (3.4-5.0); BILIRUBIN,TOTAL 0.4 mg/dl (0.2-1); CALCIUM 8.5 mg/dl (8.5-10.1); CREATININE 1.7 mg/dl (0.6-1.3); POTASSIUM 5.2 mmol/L (3.5-5.1); TOT PROT 5.6 g/dl (6.4-8.2)
[2023-03-10 14:44] LABS: HEMATOCRIT 24.9 % (32.4-45.2); HEMOGLOBIN 7.8 G/dL (10.7-15.3); MCHC 31.3 g/dl (32.0-36.0); RBC 2.86 10^6/uL (3.60-5.2); RDW 16.5 % (11.6-15.6)
[2023-03-10 14:46] LABS: MCH 27.2 pg (25.7-33.7); MEAN PLT VOLUME 8.1 fl (7.5-11.1); WHITE BLOOD COUNT 4.3 10^3/uL (4.0-10.8)
[2023-03-10 14:48] LABS: ANISOCYTOSIS 1+
[2023-03-10] MEDS ORDERED: CEFTRIAXONE 1 GM in DEXTROSE 5%-WATER - 50 ML IVPB SCH (22:00)
[2023-03-10] MEDS ORDERED: AZITHROMYCIN IVPB 500 MG/250 ML BAG IVPB SCH (22:00)
[2023-03-11] MEDS: ACETAMINOPHEN 500 MG TABLET (FP) PO PRN ×3 (06:50→22:06)
[2023-03-11] MEDS: amLODIPine BESYLATE 10 MG TABLET (FP) PO SCH (06:50)
[2023-03-11 08:42] LABS: CALCIUM 8.3 mg/dl (8.5-10.1); CREATININE 1.6 mg/dl (0.6-1.3); POTASSIUM 4.6 mmol/L (3.5-5.1)
[2023-03-11] MEDS ORDERED: SODIUM CHLORIDE 1,000 ML IV SCH ×2 (09:30→19:39)
[2023-03-11 09:41] LABS: BASO % 0.3 % (0-2.0); EOS % 0.8 % (0-4.5); HEMATOCRIT 23.8 % (32.4-45.2); HEMOGLOBIN 7.3 GM/dL (10.7-15.3); MCH 26.2 pg (25.7-33.7); MCHC 30.8 g/dl (32.0-36.0); MEAN CELL VOLUME 85.1 fl (80-96); MEAN PLT VOLUME 8.1 fl (7.5-11.1); MONO % 2.8 % (3.8-10.2); NEUT % 90.1 % (42.8-82.8); PLATELET COUNT 241 10^3/uL (134-434); RDW 17.3 % (11.6-15.6); WHITE BLOOD COUNT 4.6 K/mm3 (4.0-10.0)
[2023-03-11] MEDS: PANTOPRAZOLE 40 MG TABLET PO SCH (10:09)
[2023-03-11] MEDS: ALBUTEROL SO4 2.5/IPRATROPIUM 0.5 INH SOL 3 ML VIAL.NEB. NEB SCH ×3 (13:36→20:06)
[2023-03-11] MEDS: VANCOMYCIN/WATER 1250 MG 1,250 MG/250 ML BAG IVPB SCH (19:14)
[2023-03-11 19:26] LABS: HEMOGLOBIN 7.2 G/dL (10.7-15.3); MCH 26.9 pg (25.7-33.7); MCHC 31.5 g/dl (32.0-36.0); MEAN CELL VOLUME 85.4 fl (80-96); MEAN PLT VOLUME 8.3 fl (7.5-11.1); PLATELET COUNT 176.4 10^3/uL (134-434); RBC 2.69 10^6/uL (3.60-5.2); RDW 16.6 % (11.6-15.6); WHITE BLOOD COUNT 3.1 10^3/uL (4.0-10.8)
[2023-03-11] MEDS: CEFEPIME 1 GM in DEXTROSE 5%-WATER 100 ML IVPB SCH (22:08)
[2023-03-12] MEDS: amLODIPine BESYLATE 10 MG TABLET (FP) PO SCH (06:47)
[2023-03-12] MEDS: ALBUTEROL SO4 2.5/IPRATROPIUM 0.5 INH SOL 3 ML VIAL.NEB. NEB SCH ×4 (08:23→21:00)
[2023-03-12 08:37] LABS: HEMATOCRIT 23.3 % (32.4-45.2); MCH 25.5 pg (25.7-33.7); MCHC 30.2 g/dl (32.0-36.0); MEAN CELL VOLUME 84.6 fl (80-96); MEAN PLT VOLUME 8.5 fl (7.5-11.1); PLATELET COUNT 214.3 10^3/uL (134-434); RBC 2.76 10^6/uL (3.60-5.2); RDW 17.3 % (11.6-15.6); WHITE BLOOD COUNT 2.7 10^3/uL (4.0-10.8)
[2023-03-12 08:50] LABS: CALCIUM 8.3 mg/dl (8.5-10.1); CREATININE 1.4 mg/dl (0.6-1.3); MAGNESIUM 1.7 mg/dL (1.8-2.4); PHOSPHOROUS 3.5 (2.5-4.9); POTASSIUM 4.1 mmol/L (3.5-5.1)
[2023-03-12] MEDS: CEFEPIME 1 GM in DEXTROSE 5%-WATER 100 ML IVPB SCH ×2 (10:23→21:29)
[2023-03-12] MEDS: PANTOPRAZOLE 40 MG TABLET PO SCH (10:23)
[2023-03-12] MEDS: LACTOBACILLUS ACIDOPHILUS 1 TABLET PO SCH (10:23)
[2023-03-12] MEDS ORDERED: MAGNESIUM 1GM/D5W 100ML - 100 ML IVPB IVPB ONE (11:00)
[2023-03-12] MEDS: VANCOMYCIN/WATER 1250 MG 1,250 MG/250 ML BAG IVPB SCH (19:42)
[2023-03-12] MEDS: ACETAMINOPHEN 500 MG TABLET (FP) PO PRN (19:43)
[2023-03-12 21:16] LABS: HEMATOCRIT 25.1 % (32.4-45.2); HEMOGLOBIN 7.9 G/dL (10.7-15.3); MCH 26.7 pg (25.7-33.7); MCHC 31.5 g/dl (32.0-36.0); MEAN CELL VOLUME 84.8 fl (80-96); MEAN PLT VOLUME 8.1 fl (7.5-11.1); PLATELET COUNT 183.3 10^3/uL (134-434); RBC 2.96 10^6/uL (3.60-5.2); RDW 16.1 % (11.6-15.6); WHITE BLOOD COUNT 2.8 10^3/uL (4.0-10.8)
[2023-03-12] MEDS: HEPARIN NA (PORCINE) 5,000 UNITS/ML 1ML VIAL SQ SCH (21:30)
[2023-03-13 03:55] LABS: HEMOGLOBIN 8.8 GM/dL (10.7-15.3); MCH 26.1 pg (25.7-33.7); MCHC 31.6 g/dl (32.0-36.0); MEAN CELL VOLUME 82.5 fl (80-96); MEAN PLT VOLUME 7.9 fl (7.5-11.1); PLATELET COUNT 234 10^3/uL (134-434); RBC 3.39 M/mm3 (3.60-5.2); RDW 17.6 % (11.6-15.6); WHITE BLOOD COUNT 3.9 K/mm3 (4.0-10.0)
[2023-03-13] MEDS: amLODIPine BESYLATE 10 MG TABLET (FP) PO SCH (08:25)
[2023-03-13] MEDS ORDERED: guaiFENesin/D-METHORPHAN HB 10 ML UNIT-DOSE CUPS PO PRN (08:45)
[2023-03-13] MEDS: ALBUTEROL SO4 2.5/IPRATROPIUM 0.5 INH SOL 3 ML VIAL.NEB. NEB SCH (08:58)
[2023-03-13 09:06] LABS: CALCIUM 9.1 mg/dl (8.5-10.1); CREATININE 1.1 mg/dl (0.6-1.3); POTASSIUM 3.8 mmol/L (3.5-5.1)
[2023-03-13] MEDS: CEFEPIME 1 GM in DEXTROSE 5%-WATER 100 ML IVPB SCH ×2 (09:41→21:48)
[2023-03-13] MEDS: guaiFENesin/D-METHORPHAN HB 10 ML UNIT-DOSE CUPS PO SCH ×3 (09:42→20:53)
[2023-03-13] MEDS: HEPARIN NA (PORCINE) 5,000 UNITS/ML 1ML VIAL SQ SCH ×2 (09:42→21:48)
[2023-03-13] MEDS: LACTOBACILLUS ACIDOPHILUS 1 TABLET PO SCH (09:43)
[2023-03-13] MEDS: SODIUM HYPOCHLORITE 0.25%- 473 ML BULK BOTTLE TP SCH (09:43)
[2023-03-13] MEDS: PANTOPRAZOLE 40 MG TABLET PO SCH (09:43)
[2023-03-13] MEDS: COLLAGENASE CLOSTRIDIUM HIST. 30 GRAMS TUBE TP SCH (09:44)
[2023-03-13 09:52] LABS: BASO % 0.2 % (0-2.0); EOS % 2.8 % (0-4.5); HEMATOCRIT 30.5 % (32.4-45.2); HEMOGLOBIN 9.7 GM/dL (10.7-15.3); LYMPH % 18.3 % (8-40); MCH 26.3 pg (25.7-33.7); MCHC 31.9 g/dl (32.0-36.0); MEAN CELL VOLUME 82.5 fl (80-96); MEAN PLT VOLUME 8.1 fl (7.5-11.1); NEUT % 70.7 % (42.8-82.8); PLATELET COUNT 253 10^3/uL (134-434); RBC 3.69 M/mm3 (3.60-5.2); RDW 17.4 % (11.6-15.6); WHITE BLOOD COUNT 4.2 K/mm3 (4.0-10.0)
[2023-03-13] MEDS: ASPIRIN 81 MG CHEWABLE TABLETS PO SCH (10:31)
[2023-03-13] MEDS: LEVALBUTEROL HCL 0.31 MG/3 ML VIAL.NEB IH SCH ×2 (14:21→20:53)
[2023-03-13] MEDS: VANCOMYCIN/WATER 1250 MG 1,250 MG/250 ML BAG IVPB SCH (18:28)
[2023-03-14] MEDS: guaiFENesin/D-METHORPHAN HB 10 ML UNIT-DOSE CUPS PO SCH ×4 (02:34→22:52)
[2023-03-14 08:23] LABS: CALCIUM 8.8 mg/dl (8.5-10.1); POTASSIUM 3.7 mmol/L (3.5-5.1)
[2023-03-14] MEDS: LEVALBUTEROL HCL 0.31 MG/3 ML VIAL.NEB IH SCH ×3 (09:15→22:51)
[2023-03-14] MEDS: amLODIPine BESYLATE 10 MG TABLET (FP) PO SCH (09:15)
[2023-03-14] MEDS: ENOXAPARIN NA (PORCINE) 40 MG/0.4 ML DISP.SYRIN SQ SCH (09:18)
[2023-03-14] MEDS: SODIUM HYPOCHLORITE 0.25%- 473 ML BULK BOTTLE TP SCH (09:18)
[2023-03-14] MEDS: CEFEPIME 1 GM in DEXTROSE 5%-WATER 100 ML IVPB SCH (09:18)
[2023-03-14] MEDS: ASPIRIN 81 MG CHEWABLE TABLETS PO SCH (09:18)
[2023-03-14] MEDS: LACTOBACILLUS ACIDOPHILUS 1 TABLET PO SCH (09:18)
[2023-03-14] MEDS: PANTOPRAZOLE 40 MG TABLET PO SCH (09:19)
[2023-03-14] MEDS: COLLAGENASE CLOSTRIDIUM HIST. 30 GRAMS TUBE TP SCH (09:19)
[2023-03-14 10:03] LABS: HEMATOCRIT 28.3 % (32.4-45.2); HEMOGLOBIN 8.8 GM/dL (10.7-15.3); MCH 25.7 pg (25.7-33.7); MCHC 30.9 g/dl (32.0-36.0); MEAN CELL VOLUME 83.1 fl (80-96); MEAN PLT VOLUME 8.5 fl (7.5-11.1); PLATELET COUNT 222 10^3/uL (134-434); RBC 3.41 M/mm3 (3.60-5.2); RDW 17.3 % (11.6-15.6)
[2023-03-14 10:25] LABS: LYMPH % 26.3 % (8-40); NEUT % 59.8 % (42.8-82.8)
[2023-03-14 10:26] LABS: BASO % 0.7 % (0-2.0); EOS % 2.8 % (0-4.5); MONO % 10.4 % (3.8-10.2)
[2023-03-14] MEDS ORDERED: predniSONE 20 MG TABLET (UD) PO ONE (16:52)
[2023-03-14] MEDS ORDERED: ALPRAZolam 0.25 MG TABLET PO PRN (18:02)
[2023-03-14] MEDS: METHYL SALICYLATE/MENTHOL OINT 30 GM TUBE TP SCH (18:34)
[2023-03-15] MEDS: METHYL SALICYLATE/MENTHOL OINT 30 GM TUBE TP SCH ×2 (01:51→09:51)
[2023-03-15] MEDS: CEFEPIME 1 GM in DEXTROSE 5%-WATER 100 ML IVPB SCH ×2 (01:52→09:52)
[2023-03-15] MEDS: guaiFENesin/D-METHORPHAN HB 10 ML UNIT-DOSE CUPS PO SCH ×2 (03:20→09:49)
[2023-03-15] MEDS: ACETAMINOPHEN 500 MG TABLET (FP) PO PRN (06:19)
[2023-03-15] MEDS: amLODIPine BESYLATE 10 MG TABLET (FP) PO SCH (06:19)
[2023-03-15 06:33] VITALS: RESP 18; TEMP 98
[2023-03-15 08:08] LABS: HEMATOCRIT 30.3 % (32.4-45.2); HEMOGLOBIN 9.5 G/dL (10.7-15.3); MCH 26.3 pg (25.7-33.7); MCHC 31.3 g/dl (32.0-36.0); MEAN PLT VOLUME 8.7 fl (7.5-11.1); PLATELET COUNT 212.3 10^3/uL (134-434); RBC 3.61 10^6/uL (3.60-5.2); WHITE BLOOD COUNT 2.6 10^3/uL (4.0-10.8)
[2023-03-15 09:19] LABS: ALBUMIN 2.9 g/dl (3.4-5.0); BILIRUBIN,TOTAL 0.3 mg/dl (0.2-1); CALCIUM 8.4 mg/dl (8.5-10.1); MAGNESIUM 1.5 mg/dL (1.8-2.4); PHOSPHOROUS 4.1 (2.5-4.9); POTASSIUM 3.7 mmol/L (3.5-5.1); TOT PROT 4.9 g/dl (6.4-8.2)
[2023-03-15] MEDS: LACTOBACILLUS ACIDOPHILUS 1 TABLET PO SCH (09:49)
[2023-03-15] MEDS: LEVALBUTEROL HCL 0.31 MG/3 ML VIAL.NEB IH SCH (09:50)
[2023-03-15] MEDS: ENOXAPARIN NA (PORCINE) 40 MG/0.4 ML DISP.SYRIN SQ SCH (09:50)
[2023-03-15] MEDS: PANTOPRAZOLE 40 MG TABLET PO SCH (09:50)
[2023-03-15] MEDS: ASPIRIN 81 MG CHEWABLE TABLETS PO SCH (09:50)
[2023-03-15] MEDS ORDERED: predniSONE 20 MG TABLET (UD) PO SCH (10:00)
[2023-03-15] MEDS: COLLAGENASE CLOSTRIDIUM HIST. 30 GRAMS TUBE TP SCH (10:16)
[2023-03-15 10:31] VITALS: BP 136/64; PULSE 105
[2023-03-15] MEDS ORDERED: MAGNESIUM 2GM/50ML STERILE WATER IVPB IVPB ONE (10:45)
[2023-03-15] MEDS ORDERED: LOPERAMIDE HCL 2 MG CAPSULE PO ONE (13:00)
[2023-03-15] MEDS ORDERED: CEFUROXIME AXETIL 500 MG TABLET PO ONE (13:00)
== END 2023-03-15 13:54 | disposition home or self-care (01) | DRG 871 ==
LOC: FER 12:44 → FM/S 14:27 → OBSVTOIN 03-12 12:23
PROVIDERS: ADMIT Internal Medicine; ATTEND Internal Medicine
PROC: 30233N1 Transfusion of Nonautologous Red Blood Cells into Peripheral Vein, Percutaneous Approach (ICD-10-PCS; principal; 2023-03-12)
DX: A41.9 Sepsis, unspecified organism (principal); J12.1 Respiratory syncytial virus pneumonia; J96.00 Acute respiratory failure, unspecified whether with hypoxia or hypercapnia; N17.9 Acute kidney failure, unspecified; C85.90 Non-Hodgkin lymphoma, unspecified, unspecified site; I10 Essential (primary) hypertension; E11.9 Type 2 diabetes mellitus without complications; D64.9 Anemia, unspecified; Z95.2 Presence of prosthetic heart valve; I25.10 Atherosclerotic heart disease of native coronary artery without angina pectoris; E78.5 Hyperlipidemia, unspecified
CPT/HCPCS: 0241U-QW; 36415; 36430; 71045-TC-FY; 80048; 80053; 81003; 81015; 82272; 82607; 82728; 82746; 83010; 83540; 83550; 83615; 83735; 84100; 84439; 84443; 85025; 85027; 85045; 85384; 85610; 85730; 86850; 86900; 86901; 86922; 87040; 87081; 94640; 97116-GP; 97162-GP; 99285-25; G0378; G0480; J1644; P9038; P9058